=== PATIENT | female | born 1960 | race Caucasian/White ===

== ENCOUNTER → 2018-08-10 13:00 | Outpatient (CLI) | payer OTHER, SELFPAY | PROVIDERS: PCP Physician Assistant | DX: Z23 Encounter for immunization (principal) | CPT/HCPCS: 90471; 90686 ==

== ENCOUNTER → 2019-05-14 08:36 | Outpatient (CLI) | payer OTHER, SELFPAY ==
--- NOTE | 2019-05-14 | DI.MG.S_ITS ---
BILATERAL DIGITAL SCREENING MAMMOGRAM 3D/2D WITH CAD: 05/14/2019 CLINICAL: Routine screening. Comparison is made to exams dated: 05/27/2017 mammogram, 10/19/2015 mammogram, and 05/04/2013 mammogram - [facility]. There are scattered fibroglandular elements in both breasts. Current study was also evaluated with a Computer Aided Detection (CAD) system. No significant masses, calcifications, or other findings are seen in either breast. There has been no significant interval change. IMPRESSION: NEGATIVE There is no mammographic evidence of malignancy. A 1 year screening mammogram is recommended. This exam was interpreted at Station ID: [id number]. NOTE: For mammograms, a report in lay terms will be sent to the patient. Approximately 15% of breast malignancies will not be visualized mammographically. In the management of a palpable breast mass, a negative mammogram must not discourage biopsy of a clinically suspicious lesion. Electronically Signed By: Sandra burns/baltazar:05/16/2019 11:29:16 letter sent: Normal Exam ACR BI-RADS Category 1: Negative [id number]
== END ==
PROVIDERS: PCP Physician Assistant; Visit Provider Physician Assistant
DX: Z12.31 Encounter for screening mammogram for malignant neoplasm of breast (principal)
CPT/HCPCS: 77063; 77067

== ENCOUNTER → 2019-06-07 08:11 | Outpatient (CLI) | payer OTHER, SELFPAY ==
[2019-06-07 09:00] LABS: Add Manual Diff / Slide Review NO; Basophils Absolute Auto 100 /uL (0-100); Eosinophils Absolute Auto 200 /uL (0-450); Eosinophils Percent Auto 4.2 % (2-4); Hematocrit 40.3 % (36-46); Hemoglobin 13.5 g/dL (12.0-16.0); Lymphocytes Absolute Auto 1400 /uL (1100-4500); Lymphocytes Percent Auto 27.2 % (25-40); Mean Corpuscular HGB Conc 33.4 % (30-36); Mean Corpuscular Hemoglobin 32.1 PG (26-34); Mean Corpuscular Volume 95.8 fL (80-100); Monocytes Absolute Auto 500 /uL (0-900); Monocytes Percent Auto 9.6 % (3-14); Neutrophils Absolute Auto 3000 /uL (1500-7000); Platelet Count 251 X10^3/uL (150-400); Red Cell Distribution Width 13.6 % (11.6-14.8); White Blood Cell Count 5.2 X10^3/uL (4.5-11.0)
[2019-06-07 09:19] LABS: Alanine Aminotransferase 13 IU/L (9-52); Albumin 4.2 g/dL (3.5-5.0); Albumin Globulin Ratio 1.4 (1.0-2.8); Alkaline Phosphatase 71 U/L (38-126); Aspartate Aminotransferase 23 IU/L (14-36); Bilirubin Total 0.6 mg/dL (0.2-1.3); Blood Urea Nitrogen 15 mg/dL (7-17); Calcium 8.9 mg/dL (8.4-10.2); Carbon Dioxide 26 mmol/L (22-32); Chloride 107 mmol/L (98-107); Estimated Glomerular Filt Rate > 60.0 mL/min (>60); Globulin 3.1 g/dL (1.7-4.1); Glucose 98 mg/dL (70-100); HEMOLYSIS < 15 (0-50); Potassium 4.4 mmol/L (3.4-5.1); Sodium 142 mmol/L (137-145); Total Protein 7.3 g/dL (6.3-8.2)
[2019-06-07 10:12] LABS: Thyroid Stimulating Hormone 2.29 uIU/mL (0.47-4.68)
== END ==
PROVIDERS: PCP Physician Assistant; Visit Provider Physician Assistant
DX: E06.9 Thyroiditis, unspecified (principal); I10 Essential (primary) hypertension
CPT/HCPCS: 36415; 80053; 84443; 85025

== ENCOUNTER → 2020-10-02 10:32 | Outpatient (CLI) | payer OTHER, SELFPAY ==
[2020-10-02 11:36] LABS: COVID19 -Nasal RAPID Negative (Negative)
== END ==
PROVIDERS: PCP Nurse Practitioner; Visit Provider Nurse Practitioner
DX: Z03.818 Encounter for observation for suspected exposure to other biological agents ruled out (principal); Z11.59 Encounter for screening for other viral diseases
CPT/HCPCS: 87635

== ENCOUNTER → 2020-10-08 11:07 | Outpatient (CLI) | payer OTHER, SELFPAY ==
[2020-10-08 13:36] LABS: COVID19 -Nasal RAPID Negative (Negative)
== END ==
PROVIDERS: PCP Nurse Practitioner; Visit Provider Physician Assistant
DX: Z11.59 Encounter for screening for other viral diseases (principal)
CPT/HCPCS: 87635

== ENCOUNTER 2020-10-22 15:40 | Emergency (ER) | payer OTHER, MEDICAID, SELFPAY ==
[2020-10-22 15:47] VITALS: BP 129/81; PULSE 91; RESP 22; TEMP 37.2; O2SAT 96
--- NOTE | 2020-10-22 15:49 | DI.RAD.S_ITS ---
PROCEDURE: XR CHEST 1V INDICATIONS: chest pain TECHNIQUE: One view of the chest was acquired. COMPARISON: None. FINDINGS: Surgical changes and devices: None. Lungs and pleura: Mild linear atelectasis or scarring is seen at the right lung base. No acute airspace opacity is seen. No pleural effusions or pneumothorax. Mediastinum: Mediastinal contours appear normal. Heart size is normal. Bones and chest wall: No suspicious bony lesions. Overlying soft tissues appear unremarkable. IMPRESSION: No acute cardiopulmonary abnormality. Dictated by: Barrie Marcus M.D. on 10/22/2020 at 15:26 Approved by: Barrie Marcus M.D. on 10/22/2020 at 15:37
[2020-10-22 16:22] LABS: Add Manual Diff / Slide Review NO; Basophils Absolute Auto 0 /uL (0-100); Basophils Percent Auto 0.4 % (0-2); Eosinophils Absolute Auto 200 /uL (0-450); Eosinophils Percent Auto 4.3 % (2-4); Hematocrit 40.4 % (36-46); Hemoglobin 13.4 g/dL (12.0-16.0); Lymphocytes Absolute Auto 1600 /uL (1100-4500); Lymphocytes Percent Auto 31.6 % (25-40); Mean Corpuscular HGB Conc 33.2 % (30-36); Mean Corpuscular Hemoglobin 31.1 PG (26-34); Mean Corpuscular Volume 93.6 fL (80-100); Monocytes Absolute Auto 200 /uL (0-900); Monocytes Percent Auto 3.8 % (3-14); Neutrophils Absolute Auto 3100 /uL (1500-7000); Neutrophils Percent Auto 59.9 % (50-75); Platelet Count 286 X10^3/uL (150-400); Red Blood Cell Count 4.32 X10^6/uL (4.0-5.2); Red Cell Distribution Width 13.2 % (11.6-14.8); White Blood Cell Count 5.1 X10^3/uL (4.5-11.0)
[2020-10-22 16:28] LABS: Prothrombin Time 11.6 SECONDS (10.1-12.7)
[2020-10-22 16:30] LABS: PTT Partial Thromboplastin Tim 30 SECONDS (26.4-36.2)
[2020-10-22 16:32] LABS: Alanine Aminotransferase 9 IU/L (<35); Albumin 3.8 g/dL (3.5-5.0); Albumin Globulin Ratio 1.2 (1.0-2.8); Alkaline Phosphatase 78 U/L (38-126); Aspartate Aminotransferase 25 IU/L (14-36); BUN Creatinine Ratio 19.3 (6-22); Bilirubin Total 0.4 mg/dL (0.2-1.3); Blood Urea Nitrogen 11 mg/dL (7-17); Calcium 8.7 mg/dL (8.4-10.2); Carbon Dioxide 28 mmol/L (22-32); Chloride 107 mmol/L (98-107); Creatine Kinase 58 U/L (30-135); Estimated Glomerular Filt Rate > 60.0 mL/min (>60); Globulin 3.3 g/dL (1.7-4.1); Glucose 100 mg/dL (70-100); HEMOLYSIS 18 (0-50); Lipase 71 U/L (23-300); Potassium 3.9 mmol/L (3.4-5.1); Sodium 137 mmol/L (137-145); Total Protein 7.1 g/dL (6.3-8.2)
[2020-10-22 16:44] LABS: Troponin I < 0.012 ng/mL (0.01-0.034)
[2020-10-22 18:09] LABS: NT-proBNP (BNP-Adult 18+) 31 pg/mL (<125)
[2020-10-22 18:10] LABS: D Dimer 1367 ng/mL (<230)
--- NOTE | 2020-10-22 18:17 | DI.CT.S_ITS ---
PROCEDURE: CT ANGIO CHEST PE PROTOCOL INDICATIONS: chest pain, + ddimer TECHNIQUE: After the administration of intravenous contrast, 2 mm thick sections acquired from the pulmonary apices to the posterior costophrenic angles. 3-dimensional maximum intensity projection (MIP) coronal and sagittal reformats were then acquired through the thorax. For radiation dose reduction, the following was used: automated exposure control, adjustment of mA and/or kV according to patient size. COMPARISON: None. FINDINGS: Image quality: Excellent. Pulmonary arteries: Pulmonary arteries are normal in size, and demonstrate no intraluminal filling defects to suggest central pulmonary embolism. Lungs and pleura: Scattered subsegmental atelectasis and/or scarring. No focal consolidation. 2 mm nodule seen in the right middle lobe and left upper lobe as depicted on the montage images are indeterminate. No pleural effusions or pneumothorax. Central and peripheral airways are patent. Mediastinum: Heart size is normal, without pericardial effusion. No mediastinal or hilar adenopathy. Thoracic aorta is normal in caliber and enhancement. Esophagus is normal in caliber, without hiatal hernia. Bones and chest wall: No suspicious bony lesions. Ribs and thoracic spine appear intact throughout. Thyroid gland unremarkable . No axillary or supraclavicular adenopathy. Abdomen: Visualized upper abdominal solid organs appear normal in the early arterial phase of enhancement. IMPRESSION: No evidence of pulmonary embolism. No aortic dissection identified. Nonspecific 2 mm pulmonary nodules as detailed above. A follow-up CT chest in 1 year could be performed to exclude early metastatic or malignant possibilities. Dictated by: Nikolay Salomon M.D. on 10/22/2020 at 18:48 Approved by: Nikolay Salomon M.D. on 10/22/2020 at 18:52
--- NOTE | 2020-10-22 18:38 | ED_ITS ---
HPI - Chest Pain <GLADYS Aguirre - Last Filed: 10/22/20 20:21> General Chief Complaint: Chest Pain Stated Complaint: Poss Heart Attack Time Seen by Provider: 10/22/20 16:43 Source: patient Mode of arrival: Ambulatory Limitations: no limitations History of Present Illness HPI narrative: The patient is a 60-year-old female nonsmoker with history of hypothyroid, hypertension and fibromyalgia who presents with a chief complaint of chest pain radiating to her back for the past 3 days. She starts since then she has fibromyalgia, she was not overly concerned about the pain, but then t tyshawn she had an episode nausea so she became worried. She states that the nausea was overwhelming feeling. She denies any personal history of blood clots. She denies any personal cardiac history. She states that she has asthma as a child, but has not acted up in a while, though now she feels slightly wheezy. No fevers. No vomiting or diarrhea. She denies any current lightheadedness or dizziness, but rates her pain 5/10. The patient states that her pain is worse depending on position, especially when she lays flat her back or when she moves her left arm around. Related Data Previous Rx's Medication Instructions Recorded [COMPOUND CREAM] #120 gm 12/29/16 duloxetine 60 mg capsule,delayed 60 mg PO DAILY #90 cap 10/28/19 release gabapentin 600 mg tablet 600 mg PO DAILY PRN #90 tab 10/28/19 levothyroxine 75 mcg tablet 75 mcg PO DAILY #90 tab 10/28/19 losartan 50 mg tablet 50 mg PO DAILY #90 tab 10/28/19 Allergies Allergy/AdvReac Type Severity Reaction Status Date / Time oats Allergy Unknown Unverified 03/03/18 12:58 tramadol AdvReac Mild FAST HEART Unverified 03/03/18 12:58 BEAT plants Allergy Unknown Uncoded 03/03/18 12:58 Review of Systems <GLADYS Aguirre - Last Filed: 10/22/20 20:21> Review of Systems Narrative: GENERAL: Denies chills, fatigue, malaise, fever, sweats. HEENT: Denies sinus pain, ear pain, sore throat, difficulty swallowing, dizziness. RESPIRATORY: See HPI CARDIOVASCULAR: See HPI GASTROINTESTINAL: Denies nausea, vomiting, abdominal pain, diarrhea, constipation, melena. : Denies dysuria, frequency, incontinence, hematuria, urinary retention. MUSCULOSKELETAL: denies weakness, joint pain, or bony pain SKIN: Denies rash, skin lesions, or other NEUROLOGIC: Denies weakness, headache, numbness, change in speech, confusion, seizures, incoordination. PSYCHIATRIC: No concerning psychosocial issues. 12 point review of systems is negative except for those stated above Patient History <GLADYS Aguirre - Last Filed: 10/22/20 20:21> Medical History (Updated 10/22/20 @ 20:04 by GLADYS Aguirre) Alcohol consumption of one to four drinks per week Benign familial tremor (~1989) Chronic back pain Depression with anxiety Fibromyalgia Foot pain Hyperlipidemia Hypertension (~1995) Hypothyroidism (~1999) Marijuana use Measles Mumps Postmenopausal Raynaud disease Trigeminal neuralgia Vision disorder Surgical History (Updated 11/08/19 @ 22:23 by Nela Hamilton) Anesthesia History of knee surgery (~2015) History of tonsillectomy (~1962) Family History (Updated 11/08/19 @ 22:25 by Nela Hamilton) Father Suicide Mother Diabetes mellitus Arthritis Lymphoma Exam <GLADYS Aguirre - Last Filed: 10/22/20 20:21> Narrative Exam Narrative: GENERAL: This is a well-nourished, well-developed patient, in no acute distress HEAD: Atraumatic. Normocephalic. No temporal or scalp tenderness. EYES: Pupils equal round and reactive. Extraocular motions intact. No scleral icterus. No injection or drainage. ENT: Nose without bleeding, purulent drainage or septal hematoma. Throat without erythema, tonsillar hypertrophy or exudate. Uvula midline. Airway patent. NECK: Trachea midline. No JVD or lymphadenopathy. Supple, nontender, no meningeal signs. CARDIOVASCULAR: Regular rate and rhythm RESPIRATORY: Clear to auscultation. Breath sounds equal bilaterally. No rales, or rhonchi. No cough. No increased respiratory effort. No accessory muscle u se. GASTROINTESTINAL: Abdomen soft, non-tender, nondistended. No hepato- splenomegaly, or palpable masses. No guarding. Active bowel sounds all 4 quadrants EXTREMITIES: No clubbing, cyanosis, or edema. No joint tenderness, effusion, or edema noted. BACK: Nontender without deformity or crepitance. No flank tenderness. NEURO: AOx3. Interactive SKIN: No rash or erythema on visible skin Initial Vital Signs Initial Vital Signs: Vital Signs Temperature 98.9 F 10/22/20 15:47 Pulse Rate 91 H 10/22/20 15:47 Respiratory Rate 22 10/22/20 15:47 Blood Pressure 129/81 10/22/20 15:47 Pulse Oximetry 96 10/22/20 15:47 <Karla Dhillon DO - Last Filed: 10/27/20 18:15> Initial Vital Signs Initial Vital Signs: Vital Signs Temperature 98.9 F 10/22/20 15:47 Pulse Rate 91 H 10/22/20 15:47 Respiratory Rate 22 10/22/20 15:47 Blood Pressure 129/81 10/22/20 15:47 Pulse Oximetry 96 10/22/20 15:47 Scores <GLADYS Aguirre - Last Filed: 10/22/20 20:21> GCS [place] coma scale eye opening: Spontaneous Tomas coma scale verbal response: Orientated Tomas coma scale motor response: Obey commands [place] coma scale total score: 15 HEART Score Heart Score history: Slightly Suspicious Heart Score EKG: Normal Heart Score Age: 45-64 years old Heart Score risk factors: 1-2 risk factors Heart Score troponin: < or = to normal limit Heart Score Total: 2 Course <GLADYS Aguirre - Last Filed: 10/22/20 20:21> Orders Ordered: Discontinued Medications Sodium Chloride (Normal Saline 0.9%) 1,000 mls @ 250 mls/hr IV CONT CED Last Admin: 10/22/20 18:50 Dose: 250 mls/hr Documented by: JANELL Ketorolac Tromethamine (Ketorolac 60 Mg/2 Ml Vial) 30 mg IV NOW ONE Stop: 10/22/20 18:57 Ondansetron HCl (Ondansetron 4 Mg/2 Ml Inj) 4 mg IV NOW ONE Stop: 10/22/20 18:18 Last Admin: 10/22/20 18:50 Dose: 4 mg Documented by: JANELL Reevaluation(s) Reevaluation #1: Patient noted to have positive D-dimer. Discussed this with patient. CT to rule out PE ordered. Discussed getting 2nd troponin as well. Patient states that pain has become positional and is worse when lying flat. Time: 16:15 Vital Signs Vital signs: Vital Signs - 8 hr 10/22/20 15:47 10/22/20 19:35 Temperature 98.9 F Pulse Rate 91 H 71 Respiratory Rate 22 32 H Blood Pressure 129/81 Pulse Oximetry 96 99 <Karla Dhillon DO - Last Filed: 10/27/20 18:15> Orders Ordered: Discontinued Medications Sodium Chloride (Normal Saline 0.9%) 1,000 mls @ 250 mls/hr IV CONT CED Last Admin: 10/22/20 18:50 Dose: 250 mls/hr Documented by: JANELL Ketorolac Tromethamine (Ketorolac 60 Mg/2 Ml Vial) 30 mg IV NOW ONE Stop: 10/22/20 18:57 Ondansetron HCl (Ondansetron 4 Mg/2 Ml Inj) 4 mg IV NOW ONE Stop: 10/22/20 18:18 Last Admin: 10/22/20 18:50 Dose: 4 mg Documented by: JANELL Vital Signs Vital signs: Vital Signs - 8 hr 10/22/20 15:47 10/22/20 19:35 Temperature 98.9 F Pulse Rate 91 H 71 Respiratory Rate 22 32 H Blood Pressure 129/81 Pulse Oximetry 96 99 MDM - Chest Pain <GLADYS Aguirre - Last Filed: 10/22/20 20:21> Lab Data Attestation: I reviewed the patient's lab results. Result diagrams: 10/22/20 16:12 10/22/20 16:12 Labs: Lab Results 10/22/20 10/22/20 10/22/20 Range/Units 16:12 16:12 16:12 WBC 5.1 (4.5-11.0) X10^3/uL RBC 4.32 (4.0-5.2) X10^6/uL Hgb 13.4 (12.0-16.0) g/dL Hct 40.4 (36-46) % MCV 93.6 (80-100) fL MCH 31.1 (26-34) PG MCHC 33.2 (30-36) % RDW 13.2 (11.6-14.8) % Plt Count 286 (150-400) X10^3/uL Neut % (Auto) 59.9 (50-75) % Lymph % (Auto) 31.6 (25-40) % [place] % (Auto) 3.8 (3-14) % Eos % (Auto) 4.3 H (2-4) % Baso % (Auto) 0.4 (0-2) % Neut # (Auto) 3100 (8247-9557) /uL Lymph # (Auto) 1600 (7727-6947) /uL [place] # (Auto) 200 (0-900) /uL Eos # (Auto) 200 (0-450) /uL Baso # (Auto) 0 (0-100) /uL PT 11.6 (10.1-12.7) SECONDS INR 1.0 (0.9-1.3) APTT 30 (26.4-36.2) SECONDS D-Dimer (<230) ng/mL Sodium 137 (137-145) mmol/L Potassium 3.9 (3.4-5.1) mmol/L Chloride 107 (98-107) mmol/L Carbon Dioxide 28 (22-32) mmol/L BUN 11 (7-17) mg/dL Creatinine 0.57 (0.52-1.04) mg/dL Estimated GFR > 60.0 (>60) mL/min BUN/Creatinine Ratio 19.3 (6-22) Glucose 100 (70-100) mg/dL Calcium 8.7 (8.4-10.2) mg/dL Total Bilirubin 0.4 (0.2-1.3) mg/dL AST 25 (14-36) IU/L ALT 9 (<35) IU/L Alkaline Phosphatase 78 (38-126) U/L Total Creatine Kinase 58 (30-135) U/L CK-MB (CK-2) TNP CK-MB (CK-2) Rel Index TNP Troponin I < 0.012 (0.01-0.034) ng/mL NT-Pro-B Natriuret Pep (<125) pg/mL Total Protein 7.1 (6.3-8.2) g/dL Albumin 3.8 (3.5-5.0) g/dL Globulin 3.3 (1.7-4.1) g/dL Albumin/Globulin Ratio 1.2 (1.0-2.8) Lipase 71 (23-300) U/L COVID-19 PCR (Negative) 10/22/20 10/22/20 10/22/20 Range/Units 16:12 16:12 17:55 WBC (4.5-11.0) X10^3/uL RBC (4.0-5.2) X10^6/uL Hgb (12.0-16.0) g/dL Hct (36-46) % MCV (80-100) fL MCH (26-34) PG MCHC (30-36) % RDW (11.6-14.8) % Plt Count (150-400) X10^3/uL Neut % (Auto) (50-75) % Lymph % (Auto) (25-40) % [place] % (Auto) (3-14) % Eos % (Auto) (2-4) % Baso % (Auto) (0-2) % Neut # (Auto) (5709-2561) /uL Lymph # (Auto) (9107-5531) /uL [place] # (Auto) (0-900) /uL Eos # (Auto) (0-450) /uL Baso # (Auto) (0-100) /uL PT (10.1-12.7) SECONDS INR (0.9-1.3) APTT (26.4-36.2) SECONDS D-Dimer 1367 H (<230) ng/mL Sodium (137-145) mmol/L Potassium (3.4-5.1) mmol/L Chloride (98-107) mmol/L Carbon Dioxide (22-32) mmol/L BUN (7-17) mg/dL Creatinine (0.52-1.04) mg/dL Estimated GFR (>60) mL/min BUN/Creatinine Ratio (6-22) Glucose (70-100) mg/dL Calcium (8.4-10.2) mg/dL Total Bilirubin (0.2-1.3) mg/dL AST (14-36) IU/L ALT (<35) IU/L Alkaline Phosphatase (38-126) U/L Total Creatine Kinase (30-135) U/L CK-MB (CK-2) CK-MB (CK-2) Rel Index Troponin I (0.01-0.034) ng/mL NT-Pro-B Natriuret Pep 31 (<125) pg/mL Total Protein (6.3-8.2) g/dL Albumin (3.5-5.0) g/dL Globulin (1.7-4.1) g/dL Albumin/Globulin Ratio (1.0-2.8) Lipase (23-300) U/L COVID-19 PCR Negative (Negative) 10/22/20 Range/Units 18:59 WBC (4.5-11.0) X10^3/uL RBC (4.0-5.2) X10^6/uL Hgb (12.0-16.0) g/dL Hct (36-46) % MCV (80-100) fL MCH (26-34) PG MCHC (30-36) % RDW (11.6-14.8) % Plt Count (150-400) X10^3/uL Neut % (Auto) (50-75) % Lymph % (Auto) (25-40) % [place] % (Auto) (3-14) % Eos % (Auto) (2-4) % Baso % (Auto) (0-2) % Neut # (Auto) (8777-4374) /uL Lymph # (Auto) (6796-5252) /uL [place] # (Auto) (0-900) /uL Eos # (Auto) (0-450) /uL Baso # (Auto) (0-100) /uL PT (10.1-12.7) SECONDS INR (0.9-1.3) APTT (26.4-36.2) SECONDS D-Dimer (<230) ng/mL Sodium (137-145) mmol/L Potassium (3.4-5.1) mmol/L Chloride (98-107) mmol/L Carbon Dioxide (22-32) mmol/L BUN (7-17) mg/dL Creatinine (0.52-1.04) mg/dL Estimated GFR (>60) mL/min BUN/Creatinine Ratio (6-22) Glucose (70-100) mg/dL Calcium (8.4-10.2) mg/dL Total Bilirubin (0.2-1.3) mg/dL AST (14-36) IU/L ALT (<35) IU/L Alkaline Phosphatase (38-126) U/L Total Creatine Kinase 52 (30-135) U/L CK-MB (CK-2) TNP CK-MB (CK-2) Rel Index TNP Troponin I < 0.012 (0.01-0.034) ng/mL NT-Pro-B Natriuret Pep (<125) pg/mL Total Protein (6.3-8.2) g/dL Albumin (3.5-5.0) g/dL Globulin (1.7-4.1) g/dL Albumin/Globulin Ratio (1.0-2.8) Lipase (23-300) U/L COVID-19 PCR (Negative) Imaging Data Chest x-ray: Radiologist's Impression: [address] [place] [id number] ReportSigned Patient: Monika Painter SERAR#: [id number]: 1960cct:[id number]/Sex: 60 / FDate of Service: 10/22/20Loc: EDAccession Number: [id number] Procedure: XR chest 1V Ordering Provider: Karla Dhillon D.O. PROCEDURE: XR CHEST 1V INDICATIONS: chest pain TECHNIQUE: One view of the chest was acquired. COMPARISON: None. FINDINGS: Surgical changes and devices: None. Lungs and pleura: Mild linear atelectasis or scarring is seen at the right lung base. No acute airspace opacity is seen. No pleural effusions or pneumothorax. Mediastinum: Mediastinal contours appear normal. Heart size is normal. Bones and chest wall: No suspicious bony lesions. Overlying soft tissues appear unremarkable. IMPRESSION: No acute cardiopulmonary abnormality. Dictated by: Barrie Marcus M.D. on 10/22/2020 at 15:26 Approved by: Barrie Marcus M.D. on 10/22/2020 at 15:37 CT scan - chest: Radiologist's Impression: [address] [place] [address] [id number] Scan ReportSigned Patient: Monika Painter SERAR#: [id number]: 1Acct:[id number]/Sex: 60 / FDate of Service: 10/22/20Loc: EDAccession Number: [id number] Procedure: CT angio chest PE protocol Ordering Provider: Tahira Sutherland PROCEDURE: CT ANGIO CHEST PE PROTOCOL INDICATIONS: chest pain, + ddimer TECHNIQUE: After the administration of intravenous contrast, 2 mm thick sections acquired from the pulmonary apices to the posterior costophrenic angles. 3-dimensional maximum in tensity projection (MIP) coronal and sagittal reformats were then acquired through the thorax. For radiation dose reduction, the following was used: automated exposure control, adjustment of mA and/or kV according to patient size. COMPARISON: None. FINDINGS: Image quality: Excellent. Pulmonary arteries: Pulmonary arteries are normal in size, and demonstrate no intraluminal filling defects to suggest central pulmonary embolism. Lungs and pleura: Scattered subsegmental atelectasis and/or scarring. No focal consolidation. 2 mm nodule seen in the right middle lobe and left upper lobe as depicted on the montage images are indeterminate. No pleural effusions or pneumothorax. Central and peripheral airways are patent. Mediastinum: Heart size is normal, without pericardial effusion. No mediastinal or hilar adenopathy. Thoracic aorta is normal in caliber and enhancement. Esophagus is normal in caliber, without hiatal hernia. Bones and chest wall: No suspicious bony lesions. Ribs and thoracic spine appear intact throughout. Thyroid gland unremarkable . No axillary or supraclavicular adenopathy. Abdomen: Visualized upper abdominal solid organs appear normal in the early arterial phase of enhancement. IMPRESSION: No evidence of pulmonary embolism. No aortic dissection identified. Nonspecific 2 mm pulmonary nodules as detailed above. A follow-up CT chest in 1 year could be performed to exclude early metastatic or malignant possibilities. Dictated by: Nikolay Salomon M.D. on 10/22/2020 at 18:48 Approved by: Nikolay Salomon M.D. on 10/22/2020 at 18:52 ECG Data Attestation: I personally reviewed and interpreted this ECG as follows: Interpretation: Sinus rhythm. Ventricular rate 80. P.r. interval 150. QRS 70. viewed by Dr Dhillon [facility] Narrative Medical decision making narrative: The patient is a 60-year-old female who presents with a chief complaint of chest pain and back pain. Her initial EKG no acute findings. Her initial troponin is negative as is her repeat troponin. Given that her D-dimer was positive, obtain to CT to rule out pulmonary embolism. This came back negative. The fact that the patient's pain is worse with movement of her arm in position correlates with musculoskeletal pain. She was given Toradol in the emergency department, the declines any further measures as she has to drive home. Given that she does have cardiac risk factors including obesity, hypertension, discussed the possibility of admission for further cardiac rule out. However the patient adamantly declines to be admitted to the hospital today and rather follow up with primary care provider. I am okay with this given her presenting picture and the likelihood of musculoskeletal pain. I offered to try prescription NSAIDs or muscle relaxers, but the patient declined and states that she would rather use Tylenol Motrin etcetera. I did discussed at length that ruling out acute etiology today does not rule out the future she should come back to the emergency department for any acute concerns including chest pain, shortness of breath, concern of heart ponce ck or stroke. Patient has no questions or concerns upon discharge and states understanding return precautions as well as follow-up care. <Karla Dhillon, DO - Last Filed: 10/27/20 18:15> Lab Data Labs: Lab Results 10/22/20 10/22/20 10/22/20 Range/Units 16:12 16:12 16:12 WBC 5.1 (4.5-11.0) X10^3/uL RBC 4.32 (4.0-5.2) X10^6/uL Hgb 13.4 (12.0-16.0) g/dL Hct 40.4 (36-46) % MCV 93.6 (80-100) fL MCH 31.1 (26-34) PG MCHC 33.2 (30-36) % RDW 13.2 (11.6-14.8) % Plt Count 286 (150-400) X10^3/uL Neut % (Auto) 59.9 (50-75) % Lymph % (Auto) 31.6 (25-40) % [place] % (Auto) 3.8 (3-14) % Eos % (Auto) 4.3 H (2-4) % Baso % (Auto) 0.4 (0-2) % Neut # (Auto) 3100 (5557-7162) /uL Lymph # (Auto) 1600 (5778-8769) /uL [place] # (Auto) 200 (0-900) /uL Eos # (Auto) 200 (0-450) /uL Baso # (Auto) 0 (0-100) /uL PT 11.6 (10.1-12.7) SECONDS INR 1.0 (0.9-1.3) APTT 30 (26.4-36.2) SECONDS D-Dimer (<230) ng/mL Sodium 137 (137-145) mmol/L Potassium 3.9 (3.4-5.1) mmol/L Chloride 107 (98-107) mmol/L Carbon Dioxide 28 (22-32) mmol/L BUN 11 (7-17) mg/dL Creatinine 0.57 (0.52-1.04) mg/dL Estimated GFR > 60.0 (>60) mL/min BUN/Creatinine Ratio 19.3 (6-22) Glucose 100 (70-100) mg/dL Calcium 8.7 (8.4-10.2) mg/dL Total Bilirubin 0.4 (0.2-1.3) mg/dL AST 25 (14-36) IU/L ALT 9 (<35) IU/L Alkaline Phosphatase 78 (38-126) U/L Total Creatine Kinase 58 (30-135) U/L CK-MB (CK-2) TNP CK-MB (CK-2) Rel Index TNP Troponin I < 0.012 (0.01-0.034) ng/mL NT-Pro-B Natriuret Pep (<125) pg/mL Total Protein 7.1 (6.3-8.2) g/dL Albumin 3.8 (3.5-5.0) g/dL Globulin 3.3 (1.7-4.1) g/dL Albumin/Globulin Ratio 1.2 (1.0-2.8) Lipase 71 (23-300) U/L COVID-19 PCR (Negative) 10/22/20 10/22/20 10/22/20 Range/Units 16:12 16:12 17:55 WBC (4.5-11.0) X10^3/uL RBC (4.0-5.2) X10^6/uL Hgb (12.0-16.0) g/dL Hct (36-46) % MCV (80-100) fL MCH (26-34) PG MCHC (30-36) % RDW (11.6-14.8) % Plt Count (150-400) X10^3/uL Neut % (Auto) (50-75) % Lymph % (Auto) (25-40) % [place] % (Auto) (3-14) % Eos % (Auto) (2-4) % Baso % (Auto) (0-2) % Neut # (Auto) (3319-3358) /uL Lymph # (Auto) (4874-8820) /uL [place] # (Auto) (0-900) /uL Eos # (Auto) (0-450) /uL Baso # (Auto) (0-100) /uL PT (10.1-12.7) SECONDS INR (0.9-1.3) APTT (26.4-36.2) SECONDS D-Dimer 1367 H (<230) ng/mL Sodium (137-145) mmol/L Potassium (3.4-5.1) mmol/L Chloride (98-107) mmol/L Carbon Dioxide (22-32) mmol/L BUN (7-17) mg/dL Creatinine (0.52-1.04) mg/dL Estimated GFR (>60) mL/min BUN/Creatinine Ratio (6-22) Glucose (70-100) mg/dL Calcium (8.4-10.2) mg/dL Total Bilirubin (0.2-1.3) mg/dL AST (14-36) IU/L ALT (<35) IU/L Alkaline Phosphatase (38-126) U/L Total Creatine Kinase (30-135) U/L CK-MB (CK-2) CK-MB (CK-2) Rel Index Troponin I (0.01-0.034) ng/mL NT-Pro-B Natriuret Pep 31 (<125) pg/mL Total Protein (6.3-8.2) g/dL Albumin (3.5-5.0) g/dL Globulin (1.7-4.1) g/dL Albumin/Globulin Ratio (1.0-2.8) Lipase (23-300) U/L COVID-19 PCR Negative (Negative) 10/22/20 Range/Units 18:59 WBC (4.5-11.0) X10^3/uL RBC (4.0-5.2) X10^6/uL Hgb (12.0-16.0) g/dL Hct (36-46) % MCV (80-100) fL MCH (26-34) PG MCHC (30-36) % RDW (11.6-14.8) % Plt Count (150-400) X10^3/uL Neut % (Auto) (50-75) % Lymph % (Auto) (25-40) % [place] % (Auto) (3-14) % Eos % (Auto) (2-4) % Baso % (Auto) (0-2) % Neut # (Auto) (8374-2770) /uL Lymph # (Auto) (6975-1053) /uL [place] # (Auto) (0-900) /uL Eos # (Auto) (0-450) /uL Baso # (Auto) (0-100) /uL PT (10.1-12.7) SECONDS INR (0.9-1.3) APTT (26.4-36.2) SECONDS D-Dimer (<230) ng/mL Sodium (137-145) mmol/L Potassium (3.4-5.1) mmol/L Chloride (98-107) mmol/L Carbon Dioxide (22-32) mmol/L BUN (7-17) mg/dL Creatinine (0.52-1.04) mg/dL Estimated GFR (>60) mL/min BUN/Creatinine Ratio (6-22) Glucose (70-100) mg/dL Calcium (8.4-10.2) mg/dL Total Bilirubin (0.2-1.3) mg/dL AST (14-36) IU/L ALT (<35) IU/L Alkaline Phosphatase (38-126) U/L Total Creatine Kinase 52 (30-135) U/L CK-MB (CK-2) TNP CK-MB (CK-2) Rel Index TNP Troponin I < 0.012 (0.01-0.034) ng/mL NT-Pro-B Natriuret Pep (<125) pg/mL Total Protein (6.3-8.2) g/dL Albumin (3.5-5.0) g/dL Globulin (1.7-4.1) g/dL Albumin/Globulin Ratio (1.0-2.8) Lipase (23-300) U/L COVID-19 PCR (Negative) ECG Data Attestation: I personally reviewed and interpreted this ECG as follows: Prior ECG tracings: not available for review Interpretation: Normal sinus rhythm rate 79 p.r. interval 150 QRS [address] changes no priors to compare small T-wave inversion noted in lead 3 only no reciprocal changes Discharge Plan Departure Patient Disposition: Home Clinical Impression: Atypical chest pain Instructions: DI for Atypical Chest Pain Activity Restrictions/Additional Instructions: Thank you for trusting us with your care today. Today you had multiple normal sides of lab work, normal EKG, normal chest CT. Please follow-up with primary care provider tomorrow. As discussed, we ruled out any acute heart attack or acute etiology, this does not rule out anything in the future. The fact that your pain is worse with position moving her arm this supportive of musculoskeletal pain. Please use [id number] medications as needed and able. Please come back to the emergency department for any acute concerns such as chest pain, shortness of breath concern of heart attack or stroke. Prescriptions: No Action [COMPOUND CREAM] Qty: 120 RF: 4 duloxetine 60 mg capsule,delayed release(DR/EC) 60 mg PO DAILY Qty: 90 RF: 3 gabapentin 600 mg tablet 600 mg PO DAILY PRN (Reason: pain, moderate) Qty: 90 RF: 3 levothyroxine 75 mcg tablet 75 mcg PO DAILY Qty: 90 RF: 3 losartan 50 mg tablet 50 mg PO DAILY Qty: 90 RF: 3 Referrals: Neha Park ARNP [Primary Care Provider] - <Karla Dhillon DO - Last Filed: 10/27/20 18:15> Cosign ED Attending Jono Attestation: I was immediately available in the department for consultation. Documentation has been reviewed. I agree with assessment and plan.
[2020-10-22] MEDS: SODIUM CHLORIDE 0.9% 1,000 ML 250 ML IV (18:50)
[2020-10-22] MEDS: ONDANSETRON 4 MG/2 ML INJ IV (18:50)
[2020-10-22 19:04] LABS: COVID19 -Nasal RAPID Negative (Negative)
[2020-10-22 19:20] LABS: Creatine Kinase 52 U/L (30-135)
[2020-10-22 19:32] LABS: Troponin I < 0.012 ng/mL (0.01-0.034)
[2020-10-22 19:35] VITALS: PULSE 71; RESP 32; O2SAT 99
--- NOTE | 2020-11-13 14:48 | PC.NURSE ---
Late entry: NS 250 mL/hr discontinued at 2004 hrs.
== END 2020-10-22 20:11 | disposition home or self-care (01) ==
PROVIDERS: Emergency Medicine; Emergency Provider Nurse Practitioner Family; PCP Nurse Practitioner
DX: R07.89 Other chest pain (principal); R79.89 Other specified abnormal findings of blood chemistry; E03.9 Hypothyroidism, unspecified; I10 Essential (primary) hypertension; M79.7 Fibromyalgia; R11.0 Nausea
CPT/HCPCS: 36415; 71045; 71275; 80053; 82550; 83690; 83880; 84484; 85025; 85379; 85610; 85730; 87635; 93005; 93010; 96361; 96374; 99281; 99284; J2405

== ENCOUNTER → 2020-11-05 07:23 | Outpatient (CLI) | payer OTHER, SELFPAY ==
[2020-11-05 08:17] LABS: Cholesterol 162 mg/dL (140-199); HDL Cholesterol 43 mg/dL (40-60); LDL Cholesterol Calculated 95 mg/dL (<100); Triglycerides 120 mg/dL (35-150)
[2020-11-05 08:50] LABS: Thyroid Stimulating Hormone 5.11 uIU/mL (0.47-4.68)
[2020-11-06 08:52] LABS: Microalbumin Urine Random < 0.6 mg/dL (0-1.6)
== END ==
PROVIDERS: PCP Nurse Practitioner; Referring Provider Nurse Practitioner; Visit Provider Nurse Practitioner
DX: E03.9 Hypothyroidism, unspecified (principal); E78.5 Hyperlipidemia, unspecified; F41.8 Other specified anxiety disorders; I10 Essential (primary) hypertension; Z79.899 Other long term (current) drug therapy
CPT/HCPCS: 36415; 80061; 82043; 82570; 84443

== ENCOUNTER → 2021-01-08 10:48 | Outpatient (CLI) | payer OTHER, MEDICAID, SELFPAY ==
[2021-01-08 11:38] LABS: Add Manual Diff / Slide Review NO; Basophils Absolute Auto 0 /uL (0-100); Basophils Percent Auto 0.3 % (0-2); Eosinophils Absolute Auto 200 /uL (0-450); Hematocrit 38.4 % (36-46); Hemoglobin 13.1 g/dL (12.0-16.0); Lymphocytes Absolute Auto 1500 /uL (1100-4500); Lymphocytes Percent Auto 27.6 % (25-40); Mean Corpuscular HGB Conc 34.2 % (30-36); Mean Corpuscular Hemoglobin 31.7 PG (26-34); Mean Corpuscular Volume 92.6 fL (80-100); Monocytes Absolute Auto 200 /uL (0-900); Monocytes Percent Auto 4.5 % (3-14); Neutrophils Absolute Auto 3500 /uL (1500-7000); Neutrophils Percent Auto 63.6 % (50-75); Platelet Count 267 X10^3/uL (150-400); Red Blood Cell Count 4.15 X10^6/uL (4.0-5.2); Red Cell Distribution Width 13.2 % (11.6-14.8); White Blood Cell Count 5.5 X10^3/uL (4.5-11.0)
[2021-01-08 12:07] LABS: Erythrocyte Sedimentation Rate 18 MM/HR (0-20)
[2021-01-08 12:26] LABS: Alanine Aminotransferase 9 IU/L (<35); Albumin 3.9 g/dL (3.5-5.0); Albumin Globulin Ratio 1.3 (1.0-2.8); Alkaline Phosphatase 90 U/L (38-126); Aspartate Aminotransferase 30 IU/L (14-36); BUN Creatinine Ratio 22.4 (6-22); Bilirubin Total 0.3 mg/dL (0.2-1.3); Blood Urea Nitrogen 13 mg/dL (7-17); C-Reactive Protein Quant 0.7 mg/dL (<1.0); Calcium 8.6 mg/dL (8.4-10.2); Carbon Dioxide 28 mmol/L (22-32); Chloride 106 mmol/L (98-107); Estimated Glomerular Filt Rate > 60.0 mL/min (>60); Globulin 3.1 g/dL (1.7-4.1); Glucose 107 mg/dL (70-100); HEMOLYSIS < 15 (0-50); Potassium 4.2 mmol/L (3.4-5.1); Sodium 137 mmol/L (137-145)
[2021-01-08 12:42] LABS: Rheumatoid Factor 145.6 IU/mL (<12.0)
[2021-01-08 13:12] LABS: Vitamin B12 784 pg/mL (239-931)
[2021-01-08 14:25] LABS: Thyroid Stimulating Hormone 1.98 uIU/mL (0.47-4.68)
[2021-01-09 18:04] LABS: ANA Screen, IFA Negative (.)
== END ==
PROVIDERS: PCP Nurse Practitioner; Referring Provider Nurse Practitioner; Visit Provider Nurse Practitioner
DX: F41.8 Other specified anxiety disorders (principal); I10 Essential (primary) hypertension; I73.00 Raynaud's syndrome without gangrene; M06.9 Rheumatoid arthritis, unspecified; M79.7 Fibromyalgia; R26.89 Other abnormalities of gait and mobility; R29.898 Other symptoms and signs involving the musculoskeletal system; R53.1 Weakness; W19.XXXA Unspecified fall, initial encounter; Z01.812 Encounter for preprocedural laboratory examination; E03.9 Hypothyroidism, unspecified; Z79.899 Other long term (current) drug therapy
CPT/HCPCS: 36415; 80053; 82607; 84443; 85025; 85651; 86038; 86140; 86430

== ENCOUNTER → 2021-01-15 09:13 | Outpatient (CLI) | payer OTHER, SELFPAY ==
--- NOTE | 2021-01-15 09:14 | DI.MRI.S_ITS ---
PROCEDURE: MR HEAD/BRAIN WO/W CON INDICATIONS: Weakness of lower extremities, imbalance, falls TECHNIQUE: Noncontrast axial T1 spin echo, axial T2 fast spin echo, sagittal and axial FLAIR, coronal T2 fast spin echo, axial gradient echo, axial diffusion and ADC through the brain. After the administration of contrast, axial and coronal 3D VIBE or T1 spin echo with fat saturation through the brain. COMPARISON: None. FINDINGS: Image quality: Excellent. CSF Spaces: Basal cisterns are patent. No extra-axial fluid collections. Ventricles are normal in size and shape. Brain: No midline shift. No intracranial bleeds or masses. No abnormal intracranial enhancement. The brainstem appears normal. Diffusion-weighted images demonstrate no acute ischemic insults. No chronic ischemic insults. Normal intravascular flow voids are present. Skull and face: Calvarial marrow is normal in signal. Orbits appear normal. Sinuses: Sinuses and mastoids appear clear. IMPRESSION: Normal for age, source of current symptoms is not seen. There is a mild degree of microvascular atherosclerotic change in the deep white matter of each hemisphere but no sign of stroke, hemorrhage, mass or ventriculomegaly. Dictated by: Isidro Haley M.D. on 01/15/2021 at 11:10 Approved by: Isidro Haley M.D. on 01/15/2021 at 11:11
== END ==
PROVIDERS: PCP Nurse Practitioner; Referring Provider Nurse Practitioner; Visit Provider Nurse Practitioner
DX: R29.898 Other symptoms and signs involving the musculoskeletal system (principal); R26.89 Other abnormalities of gait and mobility; R29.6 Repeated falls
CPT/HCPCS: 70553

== ENCOUNTER → 2021-01-25 15:21 | Outpatient (CLI) | payer OTHER, MEDICAID, SELFPAY ==
--- NOTE | 2021-01-25 15:22 | DI.RAD.S_ITS ---
PROCEDURE: XR KNEE LT 3V INDICATIONS: progression reumatoid arthritis TECHNIQUE: 3 views of the knee were acquired. COMPARISON: None. FINDINGS: Bones: No fractures or dislocations. No suspicious bony lesions. Soft tissues: No joint effusion. No suspicious soft tissue calcifications. IMPRESSION: No trauma found. Dictated by: Isidro Haley M.D. on 01/25/2021 at 15:58 Approved by: Isidro Haley M.D. on 01/25/2021 at 15:59
--- NOTE | 2021-01-25 15:22 | DI.RAD.S_ITS ---
PROCEDURE: XR HAND LT MIN 3V INDICATIONS: progression Reumatoid arthritis TECHNIQUE: 3 views of the hand(s) acquired. COMPARISON: None. FINDINGS: Bones: No fractures or dislocations. Carpal bones are normally aligned at the proximal row but the trapezium is absent. No suspicious bony lesions. Soft tissues: No suspicious soft tissue calcifications. 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 However, elsewhere no erosive changes are found. Dictated by: Isidro Haley M.D. on 01/25/2021 at 16:00 Approved by: Isidro Haley M.D. on 01/25/2021 at 16:02
--- NOTE | 2021-01-25 15:22 | DI.RAD.S_ITS ---
PROCEDURE: XR KNEE RT 3V INDICATIONS: progression Reumatoid arthritis TECHNIQUE: 3 views of the knee were acquired. COMPARISON: None. FINDINGS: Bones: No fractures or dislocations. No suspicious bony lesions. Moderate medial compartment knee joint space narrowing. Osteoarthritis is the presumed cause. Soft tissues: No joint effusion. No suspicious soft tissue calcifications. IMPRESSION: Moderate osteoarthritis right knee medial compartment. Dictated by: Isidro Haley M.D. on 01/25/2021 at 15:57 Approved by: Isidro Haley M.D. on 01/25/2021 at 15:58
--- NOTE | 2021-01-25 15:22 | DI.RAD.S_ITS ---
PROCEDURE: XR HAND RT MIN 3V INDICATIONS: progression reumatoid arthritis TECHNIQUE: 3 views of the hand(s) acquired. COMPARISON: None. FINDINGS: Bones: No fractures or dislocations. Carpal bones are normally aligned. No suspicious bony lesions. Soft tissues: No suspicious soft tissue calcifications. IMPRESSION: No trauma found. Dictated by: Isidro Haley M.D. on 01/25/2021 at 15:59 Approved by: Isidro Haley M.D. on 01/25/2021 at 16:00
== END ==
PROVIDERS: PCP Nurse Practitioner; Referring Provider Nurse Practitioner; Visit Provider Nurse Practitioner
DX: M06.9 Rheumatoid arthritis, unspecified (principal); M25.561 Pain in right knee; M25.562 Pain in left knee; M79.641 Pain in right hand; M79.642 Pain in left hand; M17.11 Unilateral primary osteoarthritis, right knee
CPT/HCPCS: 73130; 73562

== ENCOUNTER → 2021-04-19 10:31 | Outpatient (CLI) | payer OTHER, MEDICAID, SELFPAY ==
--- NOTE | 2021-04-19 | DI.MG.S_ITS ---
BILATERAL DIGITAL SCREENING MAMMOGRAM 3D/2D WITH CAD: 04/19/2021 CLINICAL: Routine screening. Comparison is made to exams dated: 05/14/2019 mammogram, 05/27/2017 mammogram, 10/19/2015 mammogram, 05/04/2013 mammogram, and 12/19/2011 mammogram - [facility]. The tissue of both breasts is predominantly fatty. Current study was also evaluated with a Computer Aided Detection (CAD) system. No significant masses, calcifications, or other findings are seen in either breast. There has been no significant interval change. IMPRESSION: NEGATIVE There is no mammographic evidence of malignancy. A 1 year screening mammogram is recommended. This exam was interpreted at Station ID: [id number]. NOTE: For mammograms, a report in lay terms will be sent to the patient. Approximately 15% of breast malignancies will not be visualized mammographically. In the management of a palpable breast mass, a negative mammogram must not discourage biopsy of a clinically suspicious lesion. Electronically Signed By: Raymundo [email or web address]:04/19/2021 14:18:35 letter sent: Normal Exam ACR BI-RADS Category 1: Negative [id number]
== END ==
PROVIDERS: PCP Nurse Practitioner; Referring Provider Nurse Practitioner; Visit Provider Nurse Practitioner
DX: Z12.31 Encounter for screening mammogram for malignant neoplasm of breast (principal)
CPT/HCPCS: 77063; 77067

== ENCOUNTER → 2021-04-29 12:07 | Outpatient (CLI) | payer OTHER, MEDICAID, SELFPAY ==
--- NOTE | 2021-04-29 12:08 | DI.RAD.S_ITS ---
PROCEDURE: XR CHEST 2V INDICATIONS: wheezing, hx asthma X30 DAYS TECHNIQUE: 2 views of the chest were acquired. COMPARISON: [facility], CR, XR CHEST 1V, 10/22/2020, 16:12. FINDINGS: Surgical changes and devices: None. Lungs and pleura: Lungs are clear. No pleural effusions or pneumothorax. Mediastinum: Mediastinal contours are normal. Heart size is normal. Bones and chest wall: No suspicious bony abnormalities. Soft tissues appear unremarkable. IMPRESSION: No acute cardiopulmonary abnormality. Dictated by: Toy Rajan M.D. on 04/29/2021 at 12:51 Approved by: Toy Rajan M.D. on 04/29/2021 at 12:51
== END ==
PROVIDERS: PCP Nurse Practitioner; Referring Provider Nurse Practitioner; Visit Provider Nurse Practitioner
DX: R06.2 Wheezing (principal)
CPT/HCPCS: 71046

== ENCOUNTER → 2021-05-08 12:47 | Outpatient (CLI) | payer OTHER, MEDICAID, SELFPAY ==
[2021-05-08 13:56] LABS: COVID19 -Nasal RAPID Negative (Negative)
== END ==
PROVIDERS: Family Provider Nurse Practitioner; PCP Nurse Practitioner; Referring Provider Internal Medicine; Visit Provider Internal Medicine
DX: Z20.822 Contact with and (suspected) exposure to COVID-19 (principal)
CPT/HCPCS: 87635; C9803

== ENCOUNTER → 2021-05-09 14:19 | Outpatient (CLI) | payer OTHER, MEDICAID, SELFPAY ==
--- NOTE | 2021-05-17 08:48 | PM.PFT.1 ---
Pulmonary Function Test Referral & Results Date Patient Seen: 05/09/21 Requesting provider: Neha Park Results: The spirometry demonstrates an FVC of 2.86 L which is 80% of predicted. The FEV1 was measured at 2.19 L which is 79% of predicted. The FEV1/FVC ratio was 77 which is 98% of predicted. Following the administration of bronchodilator there was a 10% improvement in FEV1 and a 47% improvement in FEF 25-75%. Lung volumes show an SVC of 3.07 L which is 93% of predicted. The diffusing capacity was measured at 27.55 which is 102% of predicted. The maximum voluntary ventilation was normal Interpretation: This study demonstrates perhaps very mild obstructive lung disease based on minimal reduction FEV1 although FEV1/FVC ratio is preserved. There is also minimal evidence of benefit following bronchodilator particularly small airway flow as above based on improvement in FEF 25-75%. Shape a flow volume loop is also consistent with very mild obstructive lung disease Otherwise this study is normal
== END ==
PROVIDERS: Family Provider Nurse Practitioner; PCP Nurse Practitioner; Referring Provider Nurse Practitioner; Visit Provider Nurse Practitioner
DX: R06.02 Shortness of breath (principal); J45.909 Unspecified asthma, uncomplicated
CPT/HCPCS: 94060; 94726; 94729

== ENCOUNTER → 2021-05-14 12:28 | Outpatient (CLI) | payer OTHER, MEDICAID, SELFPAY ==
[2021-05-14 13:51] LABS: Add Manual Diff / Slide Review NO; Basophils Absolute Auto 0 /uL (0-100); Basophils Percent Auto 0.5 % (0-2); Eosinophils Absolute Auto 200 /uL (0-450); Eosinophils Percent Auto 3.2 % (2-4); Hematocrit 40.5 % (36-46); Hemoglobin 13.2 g/dL (12.0-16.0); Lymphocytes Absolute Auto 1900 /uL (1100-4500); Lymphocytes Percent Auto 28.2 % (25-40); Mean Corpuscular HGB Conc 32.7 % (30-36); Mean Corpuscular Hemoglobin 31.2 PG (26-34); Mean Corpuscular Volume 95.6 fL (80-100); Monocytes Absolute Auto 400 /uL (0-900); Monocytes Percent Auto 5.8 % (3-14); Neutrophils Absolute Auto 4200 /uL (1500-7000); Neutrophils Percent Auto 62.3 % (50-75); Platelet Count 306 X10^3/uL (150-400); Red Blood Cell Count 4.24 X10^6/uL (4.0-5.2); Red Cell Distribution Width 14.9 % (11.6-14.8); White Blood Cell Count 6.7 X10^3/uL (4.5-11.0)
[2021-05-14 15:23] LABS: Erythrocyte Sedimentation Rate 15 MM/HR (0-20)
[2021-05-14 15:46] LABS: Alanine Aminotransferase 9 IU/L (<35); Albumin 4.1 g/dL (3.5-5.0); Albumin Globulin Ratio 1.4 (1.0-2.8); Alkaline Phosphatase 70 U/L (38-126); Aspartate Aminotransferase 26 IU/L (14-36); BUN Creatinine Ratio 19.7 (6-22); Bilirubin Total 0.5 mg/dL (0.2-1.3); Blood Urea Nitrogen 13 mg/dL (7-17); Calcium 9.5 mg/dL (8.4-10.2); Carbon Dioxide 28 mmol/L (22-32); Chloride 104 mmol/L (98-107); Estimated Glomerular Filt Rate > 60.0 mL/min (>60); Globulin 2.9 g/dL (1.7-4.1); Glucose 99 mg/dL (70-100); HEMOLYSIS < 15 (0-50); Potassium 4.8 mmol/L (3.4-5.1); Sodium 140 mmol/L (137-145)
[2021-05-14 15:49] LABS: High Sensitivity CRP - Cardiac 8.4 mg/L (1.0-3.0)
== END ==
PROVIDERS: Family Provider Nurse Practitioner; PCP Nurse Practitioner; Referring Provider Internal Medicine Rheumatology; Visit Provider Internal Medicine Rheumatology
DX: M05.79 Rheumatoid arthritis with rheumatoid factor of multiple sites without organ or systems involvement (principal)
CPT/HCPCS: 36415; 80053; 85025; 85651; 86140

== ENCOUNTER → 2021-05-28 16:14 | Outpatient (CLI) | payer OTHER, MEDICAID, SELFPAY ==
--- NOTE | 2021-05-28 16:15 | DI.US.S_ITS ---
PROCEDURE: US PERIPH VENOUS LOW EXTREM LT INDICATIONS: Left lower extremity swelling for 1 week. RULE OUT DVT TECHNIQUE: Real-time imaging, as well as color and pulse Doppler interrogation, were performed of the lower extremity deep veins from the inguinal ligament to the popliteal fossa. COMPARISON: None. FINDINGS: The common femoral, femoral and popliteal veins are normally compressible, and free of intraluminal thrombus. Color and pulse Doppler demonstrate normal phasic intraluminal flow. There is normal augmentation response to distal compression maneuver. 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 IMPRESSION: Negative for deep venous thrombosis. Prominent popliteal fossa fluid collection seen, which is likely related to Yusuf's cyst. Dictated by: Cheng Guerra M.D. on 05/28/2021 at 16:21 Approved by: Cheng Guerra M.D. on 05/28/2021 at 16:22
== END ==
PROVIDERS: Family Provider Nurse Practitioner; PCP Nurse Practitioner; Referring Provider Nurse Practitioner; Visit Provider Nurse Practitioner
DX: M79.89 Other specified soft tissue disorders (principal)
CPT/HCPCS: 93971

== ENCOUNTER 2021-06-18 14:30 | Outpatient (RCR) | payer OTHER, MEDICAID, SELFPAY ==
--- NOTE | 2021-05-30 16:43 | PT.OIE ---
Current Diagnoses Neuralgia and neuritis, unspecified (05/30/21) Other abnormalities of gait and mobility (05/30/21) Other general symptoms and signs (05/30/21) Past Medical History (Last Reviewed 05/28/21 @ 16:05 by JAMAR Santana) Alcohol consumption of one to four drinks per week Benign familial tremor (~1989) Chronic back pain Depression with anxiety Fibromyalgia Foot pain History of knee surgery (~2015) History of tonsillectomy (~1962) Hyperlipidemia Hypertension (~1995) Hypothyroidism (~1999) Marijuana use Measles Mumps Obstructive lung disease Postmenopausal Raynaud disease Trigeminal neuralgia Vision disorder Past Surgical History (Last Reviewed 05/28/21 @ 16:05 by JAMAR Santana) Anesthesia History of knee surgery (~2015) History of tonsillectomy (~1962) Visit Care Team Role Provider Type JAMAR Santana Attending Provider Advanced Front Of House Manager Family Provider Primary Care Provider Referring Provider Specialty: [facility] Practice Address: [address] [place] [address], 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 LAYER Visits 0 Evaluation Information Evaluation Date 05/31/21 Precautions Precautions fibromyalgia rheumatoid arthritis PT-OP-B Current Condition Start: 05/31/21 09:56 Freq: Status: Active Protocol: Document 05/31/21 09:56 (Rec: 05/31/21 10:26 [email or web address]) Current Condition History of Current Condition Onset Date 6 months ago Current Complaints decreased balance, chronic pain, generalized weakness, LLE swelling History of Current Condition Monika is a 60yo female with RA, fibromyalgia, peripheral neuropathies, depression with anxiety, raynaud's syndrome, hyperipidemia, HTN, hypothyroidism here today for decreased balance, pain and weak LEs. She stated her balance suddenly has been declining since 6 months ago with 2 falls and often had to catch herself. She feels unstable with quick turns, or with eyes closed. She often stumbles by catching her foot on stairs as well. She has to couch surfing at home sometimes for support. Pt also has been experiencing constant numbness and burning down the lateral aspect of L thigh to Lateral calf. She recently has a new onset of swelling on LLE with no known cause (pt went to ER with negative DVT/blockage findings ). Besides, pt states her RA and fibromyalgia have significantly affected her life. She c/o fatigue daily and it's worsening who has to nap after caring for her mother for 4 hours per day. She cannot keep her own home clean due to fatigue. Pt also experiences night cramps on LEs and LE stiffness in the am or after being in one position for a long period of time. Prior Treatments and Tests pt had carpel tunnel surgery on B wrists d/t wrist pain and numbness. 05/28/21 for LLE swelling= negative DVT, rolf sign, blood clot. R knee x-ray= mod OA at medial compartment x-ray L hand =IMPRESSION: Absent trapezium, possibly postoperative change versus osteolysis previously. However, elsewhere no erosive changes are found. x-ray R hand= IMPRESSION: No trauma found. Future Testing and Treatments Planned pt is going to consult with neurologist Treatment Goals Patient/Caregiver Goals 1. to improve her overall balance and stamina for daily activities Personal Factors Other Personal Factors That May Effect RA, fibromyalgia, chronic pain Therapy/Recovery , peripheral neuropathies, depression with anxiety, raynaud's syndrome, hyperipidemia, HTN, hypothyroidism PT-OP-C Subjective Start: 05/31/21 09:56 Freq: Status: Active Protocol: Document 05/31/21 09:56 (Rec: 05/31/21 10:26 [email or web address]) Patient Questionnaires ABC- Activity Specific Balance Confidence Scale ABC Score 70.6 ABC Functional Impairment 20 to <40% Impaired (Score 61- 80) Dizziness Handicap Inventory DHI Score 56 DHI Functional Impairment 40 to 59% Impaired (Score 40- 59) OP-PT Pain Assessment Location L thigh Pain Location Details lateral thigh and calf Intensity 4 Scale Used Numeric (0 - 10) Description Burning,Radiating,Tingling Frequency Frequent hands Intensity 4 Scale Used Numeric (0 - 10) Description Aching,Radiating Frequency Constant PT-OP-D Balance Start: 05/31/21 09:56 Freq: Status: Active Protocol: Document 05/31/21 09:56 (Rec: 05/31/21 10:26 [email or web address]) Balance Tests Romberg Romberg WFL Single Limb Standing Single Limb- Right 28,25 Single Limb- Left 16,25 Tandem Tandem Standing with UE extended out for balance, bilateral >60 s Other Other Balance Tests Performed SLS with UE extended out for balance romberg with eyes closed= mild sagital plane weight shift. no LOB romberg with eyes open= WFL PT-OP-G Mobility & Gait Start: 05/31/21 09:56 Freq: Status: Active Protocol: Document 05/31/21 09:56 (Rec: 05/31/21 10:26 [email or web address]) OP Gait Assessment Comments Gait Comments pt presents with a heavier initial contact and loading response on RLE. PT-OP-H Neuro Start: 05/31/21 09:56 Freq: Status: Active Protocol: Document 05/31/21 09:56 (Rec: 05/31/21 10:26 [email or web address]) Sensation Evaluation Gross Sensation Gross Sensation Left LE Impaired Sensation Description Numbness,Tingling Dermatome Impairments L5,S1 Comments Summary Comments mild impairment light touch and pin pick sensation at L lateral thigh and calf. Proprioception = WFL bilaterally Deep Tendon Reflex & Clonus Assessment Deep Tendon Reflex Bilateral Achilles Deep Tendon Reflex 2+ Normal Bilateral Patellar Deep Tendon Reflex 1+ Diminished PT-OP-K Range of Motion Start: 05/31/21 09:56 Freq: Status: Active Protocol: Document 05/31/21 09:56 (Rec: 05/31/21 10:26 [email or web address]) Hip Goniometric Range of Motion Hip Right Active Hip ROM WFL Yes Left Active Hip ROM WFL Yes PT-OP-L Special Tests Start: 05/31/21 09:56 Freq: Status: Active Protocol: Document 05/31/21 09:56 HH (Rec: 05/31/21 10:26 [email or web address]) Special Tests Lumbar Spine Special Tests Straight Leg Raise Test Results -ve Slump Test Results -ve PT-OP-M Strength Start: 05/31/21 09:56 Freq: Status: Active Protocol: Document 05/31/21 09:56 (Rec: 05/31/21 10:26 [email or web address]) Hip Strength Hip Manual Muscle Testing Right Flexion (L2) 4+ Good+ Extension (S1) 4+ Good+ Abduction 4+ Good+ Adduction 4+ Good+ Left Flexion (L2) 4+ Good+ Extension (S1) 4+ Good+ Abduction 4+ Good+ Adduction 4+ Good+ Knee Strength Knee Manual Muscle Testing Left Flexion (S2) 4- Good- Extension (L3) 4+ Good+ Right Flexion (S2) 4- Good- Extension (L3) 4+ Good+ Ankle/Foot Strength Ankle and Foot Manual Muscle Testing Right Dorsiflexion (L4) 4+ Good+ Plantarflexion (S1) 4+ Good+ Left Dorsiflexion (L4) 4+ Good+ Plantarflexion (S1) 4+ Good+ PT-OP-T Assessment and Plan Start: 05/31/21 09:56 Freq: Status: Active Protocol: Document 05/31/21 09:56 (Rec: 05/31/21 10:26 [email or web address]) Physical Therapy Assessment Rehab Potential Rehabilitation Potential Good Evaluation Complexity Number of Personal Factors/Comorbidities 3 or More Number of Body Systems Impaired 4 or More Clinical Presentation at Evaluation Stable Impairments Impairments Activity Tolerance,Balance, Functional Activities, Functional Mobility,Gait,Pain, Posture,ROM,Soft Tissue Mobility,Strength,Transfers Other Concerns Fall Risk mod Barriers to Rehabilitation RA, fibromyalgia, chronic pain , peripheral neuropathies, depression with anxiety, raynaud's syndrome, hyperipidemia, HTN, hypothyroidism Goals 6MWT Impairment will assess next visit. pain Impairment pt has generalized pain 4/10 on UEs and LEs Short Term Goal (STG) pt will have decrease in generalized pain no more than 3/10 in a daily basis. STG Duration 4 weeks Snf Goal (LTG) pt will have decrease in generalized pain no more than 2/10 in a daily basis. LTG Duration 8 weeks HEP Impairment pt does not have an exercise routine to keep her active Short Term Goal (STG) pt will be able to complete daily exercise routine safely and independently to improve her balance and overall endurance. STG Duration 4 weeks ABC scale Impairment pt scores 70.6 on ABC scale Short Term Goal (STG) pt will show improved confidence in balance to score >80 points on ABC scale STG Duration 4 weeks Snf Goal (LTG) pt will show improved confidence in balance to score >85 points on ABC scale LTG Duration 8 weeks Assessment Summary Assessment Monika is a 60yo female with RA, fibromyalgia, peripheral neuropathies, depression with anxiety, raynaud's syndrome, hyperipidemia, HTN, hypothyroidism here today for decreased balance, pain and weak LEs. Upon assessment, pt fortunately has WFL ROM and strength for B LEs but presents with some impaired SL balance and reduced sensation to LT and pin pick with lateral thigh and calf. Will assess for hip and lumbar pathology for next visit. Pt's major c/o at this point is fatigue, low endurance and decreased balance. I believe pt will benefit from skilled therapy to establish an exercise routine with gentle ROM and low impact strengthening and cardiovascular endurance training, along with energy conservation techniques, which allows her to complete her daily tasks safely without significant fatigue. Physical Therapy Plan Frequency and Duration Frequency of Treatment 1x/Week Duration of Treatment 8 weeks Plan of Care Start Date 05/31/21 Plan of Care End Date 07/30/21 Therapeutic Interventions Therapeutic Interventions Aquatic Therapy,Balance Training,Gait Training,Home Exercise Program,Manual Therapy,Neuromuscular Re- education,Patient/Caregiver Education,Self-Care/Home Management,Soft Tissue Mobilization,Taping, Therapeutic Activities, Therapeutic Exercises Modalities Cold Pack/Ice Massage,Electric Stimulation,Hot Packs, Infrared Therapy,Traction- Mechanical,Ultrasound Next Visit Focus/Plan Next Note Type Treatment Note Next Visit Plan change her appt 1x/ wk x8 weeks check hip and lumbar pathogy. 6MWT introduce pt to community gym introduce ROM and low impact ex routine. energy conservation.
--- NOTE | 2021-05-31 11:02 | PT.OPPOC ---
Physical, Occupational & Speech Therapy At 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 Address: [address] [place] [address], [facility] Email: [email or web address] Plan Of Care PT-OP-T Assessment and Plan Start: 05/31/21 09:56 Freq: Status: Active Protocol: Document 05/31/21 09:56 (Rec: 05/31/21 10:26 [email or web address]) Physical Therapy Assessment Rehab Potential Rehabilitation Potential Good Evaluation Complexity Number of Personal Factors/Comorbidities 3 or More Number of Body Systems Impaired 4 or More Clinical Presentation at Evaluation Stable Impairments Impairments Activity Tolerance,Balance, Functional Activities, Functional Mobility,Gait,Pain, Posture,ROM,Soft Tissue Mobility,Strength,Transfers Other Concerns Fall Risk mod Barriers to Rehabilitation RA, fibromyalgia, chronic pain , peripheral neuropathies, depression with anxiety, raynaud's syndrome, hyperipidemia, HTN, hypothyroidism Goals 6MWT Impairment will assess next visit. pain Impairment pt has generalized pain 4/10 on UEs and LEs Short Term Goal (STG) pt will have decrease in generalized pain no more than 3/10 in a daily basis. STG Duration 4 weeks Train Starter Goal (LTG) pt will have decrease in generalized pain no more than 2/10 in a daily basis. LTG Duration 8 weeks HEP Impairment pt does not have an exercise routine to keep her active Short Term Goal (STG) pt will be able to complete daily exercise routine safely and independently to improve her balance and overall endurance. STG Duration 4 weeks ABC scale Impairment pt scores 70.6 on ABC scale Short Term Goal (STG) pt will show improved confidence in balance to score >80 points on ABC scale STG Duration 4 weeks Train Starter Goal (LTG) pt will show improved confidence in balance to score >85 points on ABC scale LTG Duration 8 weeks Assessment Summary Assessment Monika is a 60yo female with RA, fibromyalgia, peripheral neuropathies, depression with anxiety, raynaud's syndrome, hyperipidemia, HTN, hypothyroidism here today for decreased balance, pain and weak LEs. Upon assessment, pt fortunately has WFL ROM and strength for B LEs but presents with some impaired SL balance and reduced sensation to LT and pin pick with lateral thigh and calf. Will assess for hip and lumbar pathology for next visit. Pt's major c/o at this point is fatigue, low endurance and decreased balance. I believe pt will benefit from skilled therapy to establish an exercise routine with gentle ROM and low impact strengthening and cardiovascular endurance training, along with energy conservation techniques, which allows her to complete her daily tasks safely without significant fatigue. Physical Therapy Plan Frequency and Duration Frequency of Treatment 1x/Week Duration of Treatment 8 weeks Plan of Care Start Date 05/31/21 Plan of Care End Date 07/30/21 Therapeutic Interventions Therapeutic Interventions Aquatic Therapy,Balance Training,Gait Training,Home Exercise Program,Manual Therapy,Neuromuscular Re- education,Patient/Caregiver Education,Self-Care/Home Management,Soft Tissue Mobilization,Taping, Therapeutic Activities, Therapeutic Exercises Modalities Cold Pack/Ice Massage,Electric Stimulation,Hot Packs, Infrared Therapy,Traction- Mechanical,Ultrasound Next Visit Focus/Plan Next Note Type Treatment Note Next Visit Plan change her appt 1x/ wk x8 weeks check hip and lumbar pathogy. 6MWT introduce pt to community gym introduce ROM and low impact ex routine. energy conservation. Plan of Care Dates Plan of Care Start Date 05/31/21 Plan of Care End Date 07/30/21 Electronically Signed by: Celena Brizuela PT 05/31/21 [id number] Please Sign and Return: I have reviewed this Plan of Care and certify that the skilled therapy services above are required to meet the patient?s needs. Physician Signature Date Printed Name and Credentials Clinical Instructor Signature Printed Name and Credentials
--- NOTE | 2021-06-05 16:29 | PT.OTN ---
Current Diagnoses Neuralgia and neuritis, unspecified (06/05/21) Other abnormalities of gait and mobility (06/05/21) Other general symptoms and signs (06/05/21) Physical Therapy Treatment Note PT-OP-A Visit Information Start: 05/31/21 09:56 Freq: Status: Active Protocol: Document 06/05/21 14:31 HH (Rec: 06/05/21 16:29 HH [id number]) Out-Patient Physical Therapy Visit Information Visit Information Visit Type Treatment Note Visit Start Time 14:35 Visit Stop Time 15:15 Total Visit Minutes 40 Visit Number 2/6 Number of DIGITAL COMMENTATOR Visits 0 PT-OP-B Current Condition Start: 05/31/21 09:56 Freq: Status: Active Protocol: Document 05/30/21 13:00 HH (Rec: 05/31/21 10:26 HH [email or web address]) Current Condition History of Current Condition Onset Date 6 months ago Current Complaints decreased balance, chronic pain, generalized weakness, LLE swelling History of Current Condition Monika is a 60yo female with RA, fibromyalgia, peripheral neuropathies, depression with anxiety, raynaud's syndrome, hyperipidemia, HTN, hypothyroidism here today for decreased balance, pain and weak LEs. She stated her balance suddenly has been declining since 6 months ago with 2 falls and often had to catch herself. She feels unstable with quick turns, or with eyes closed. She often stumbles by catching her foot on stairs as well. She has to couch surfing at home sometimes for support. Pt also has been experiencing constant numbness and burning down the lateral aspect of L thigh to Lateral calf. She recently has a new onset of swelling on LLE with no known cause (pt went to ER with negative DVT/blockage findings ). Besides, pt states her RA and fibromyalgia have significantly affected her life. She c/o fatigue daily and it's worsening who has to nap after caring for her mother for 4 hours per day. She cannot keep her own home clean due to fatigue. Pt also experiences night cramps on LEs and LE stiffness in the am or after being in one position for a long period of time. Prior Treatments and Tests pt had carpel tunnel surgery on B wrists d/t wrist pain and numbness. 05/28/21 for LLE swelling= negative DVT, rolf sign, blood clot. R knee x-ray= mod OA at medial compartment x-ray L hand =IMPRESSION: Absent trapezium, possibly postoperative change versus osteolysis previously. However, elsewhere no erosive changes are found. x-ray R hand= IMPRESSION: No trauma found. Future Testing and Treatments Planned pt is going to consult with neurologist Treatment Goals Patient/Caregiver Goals 1. to improve her overall balance and stamina for daily activities Personal Factors Other Personal Factors That May Effect RA, fibromyalgia, chronic pain Therapy/Recovery , peripheral neuropathies, depression with anxiety, raynaud's syndrome, hyperipidemia, HTN, hypothyroidism PT-OP-C Subjective Start: 05/31/21 09:56 Freq: Status: Active Protocol: Document 06/05/21 14:31 HH (Rec: 06/05/21 16:29 HH [id number]) OP-PT Subjective Patient Comments Patient Comments Im pretty fatigued already for today Patient Reported Progress Same PT-OP-D Balance Start: 05/31/21 09:56 Freq: Status: Active Protocol: Document 05/30/21 13:00 HH (Rec: 05/31/21 10:26 [email or web address]) Balance Tests Romberg Romberg WFL Single Limb Standing Single Limb- Right 28,25 Single Limb- Left 16,25 Tandem Tandem Standing with UE extended out for balance, bilateral >60 s Other Other Balance Tests Performed SLS with UE extended out for balance romberg with eyes closed= mild sagital plane weight shift. no LOB romberg with eyes open= WFL PT-OP-G Mobility & Gait Start: 05/31/21 09:56 Freq: Status: Active Protocol: Document 05/30/21 13:00 HH (Rec: 05/31/21 10:26 [email or web address]) OP Gait Assessment Comments Gait Comments pt presents with a heavier initial contact and loading response on RLE. PT-OP-H Neuro Start: 05/31/21 09:56 Freq: Status: Active Protocol: Document 05/30/21 13:00 HH (Rec: 05/31/21 10:26 [email or web address]) Sensation Evaluation Gross Sensation Gross Sensation Left LE Impaired Sensation Description Numbness,Tingling Dermatome Impairments L5,S1 Comments Summary Comments mild impairment light touch and pin pick sensation at L lateral thigh and calf. Proprioception = WFL bilaterally Deep Tendon Reflex & Clonus Assessment Deep Tendon Reflex Bilateral Achilles Deep Tendon Reflex 2+ Normal Bilateral Patellar Deep Tendon Reflex 1+ Diminished PT-OP-K Range of Motion Start: 05/31/21 09:56 Freq: Status: Active Protocol: Document 05/30/21 13:00 HH (Rec: 05/31/21 10:26 [email or web address]) Hip Goniometric Range of Motion Hip Right Active Hip ROM WFL Yes Left Active Hip ROM WFL Yes PT-OP-L Special Tests Start: 05/31/21 09:56 Freq: Status: Active Protocol: Document 05/30/21 13:00 HH (Rec: 05/31/21 10:26 [email or web address]) Special Tests Lumbar Spine Special Tests Straight Leg Raise Test Results -ve Slump Test Results -ve PT-OP-M Strength Start: 05/31/21 09:56 Freq: Status: Active Protocol: Document 05/30/21 13:00 HH (Rec: 05/31/21 10:26 [email or web address]) Hip Strength Hip Manual Muscle Testing Right Flexion (L2) 4+ Good+ Extension (S1) 4+ Good+ Abduction 4+ Good+ Adduction 4+ Good+ Left Flexion (L2) 4+ Good+ Extension (S1) 4+ Good+ Abduction 4+ Good+ Adduction 4+ Good+ Knee Strength Knee Manual Muscle Testing Left Flexion (S2) 4- Good- Extension (L3) 4+ Good+ Right Flexion (S2) 4- Good- Extension (L3) 4+ Good+ Ankle/Foot Strength Ankle and Foot Manual Muscle Testing Right Dorsiflexion (L4) 4+ Good+ Plantarflexion (S1) 4+ Good+ Left Dorsiflexion (L4) 4+ Good+ Plantarflexion (S1) 4+ Good+ PT-OP-Q Treatments Start: 05/31/21 09:56 Freq: Status: Active Protocol: Document 06/05/21 14:31 HH (Rec: 06/05/21 16:29 HH [id number]) Cardio Equipment Recumbent Stepper (Sci-Fit) Duration (Minutes) 6 Resistance 3 Therapeutic Exercises Supine Exercises piriformis stretch Side left Reps/Minutes 15 s x 5 Comments fpr HEP, pulling sensation noted Sitting Exercises ankle pump Reps/Minutes 15 Comments for HEP LAQ Reps/Minutes 15s x5 Comments no pain noted, pulling sensation noted Manual Therapy Treatment Soft Tissue Mobilization L leg Body Location swelling management noted. Mobilization Type Myofascial Release,Sustained Pressure,Trigger Point Release Intensity/Depth Moderate Body Position Supine Comments upward stroke from calfs to thighs no tenderness noted. Self-Care/Home Management Treatment Education Patient Education Body Mechanics,Home Exercise Program,Joint Protection,Pain Management,Posture,Safety Other Education spent time educating pt to use her recumbent bike at home > 20 mins a day for LE endurance training and swelling management. Educated pt on reducing caffeine intake and increase water intake (pt drinks 3-5 cups of coffee/ day ). PT-OP-T Assessment and Plan Start: 05/31/21 09:56 Freq: Status: Active Protocol: Document 06/05/21 14:31 HH (Rec: 06/05/21 16:29 HH [id number]) Physical Therapy Assessment Goals 6MWT Impairment will assess next visit. pain Impairment pt has generalized pain 4/10 on UEs and LEs Short Term Goal (STG) pt will have decrease in generalized pain no more than 3/10 in a daily basis. STG Duration 4 weeks Painter Apprentice Goal (LTG) pt will have decrease in generalized pain no more than 2/10 in a daily basis. LTG Duration 8 weeks HEP Impairment pt does not have an exercise routine to keep her active Short Term Goal (STG) pt will be able to complete daily exercise routine safely and independently to improve her balance and overall endurance. STG Duration 4 weeks ABC scale Impairment pt scores 70.6 on ABC scale Short Term Goal (STG) pt will show improved confidence in balance to score >80 points on ABC scale STG Duration 4 weeks Mcfp Goal (LTG) pt will show improved confidence in balance to score >85 points on ABC scale LTG Duration 8 weeks Assessment Summary Assessment first ibrahima tday with pt and primarily focused on pt education regarding lifestyle changes to manage her pain and energy level ( including reducing caffeine intake, increasing water intake, use of recumbent bike ). Also educated pt on the effect of gentle ROM and low impact activities to avoid flare up from her RA/ fibromyalgia. Pt shows good understanding. Will review her HEP next visit/. Physical Therapy Plan Frequency and Duration Frequency of Treatment 1x/Week Duration of Treatment 8 weeks Plan of Care Start Date 05/31/21 Plan of Care End Date 07/30/21 Therapeutic Interventions Therapeutic Interventions Aquatic Therapy,Balance Training,Gait Training,Home Exercise Program,Manual Therapy,Neuromuscular Re- education,Patient/Caregiver Education,Self-Care/Home Management,Soft Tissue Mobilization,Taping, Therapeutic Activities, Therapeutic Exercises Modalities Cold Pack/Ice Massage,Electric Stimulation,Hot Packs, Infrared Therapy,Traction- Mechanical,Ultrasound Next Visit Focus/Plan Next Note Type Treatment Note Next Visit Plan change her appt 1x/ wk x8 weeks check hip and lumbar pathogy. 6MWT introduce pt to community gym introduce ROM and low impact ex routine. energy conservation.
--- NOTE | 2021-06-07 10:32 | PT.OTN ---
Current Diagnoses Neuralgia and neuritis, unspecified (06/07/21) Other abnormalities of gait and mobility (06/07/21) Other general symptoms and signs (06/07/21) Physical Therapy Treatment Note PT-OP-A Visit Information Start: 05/31/21 09:56 Freq: Status: Active Protocol: Document 06/07/21 09:48 HH (Rec: 06/07/21 10:32 [id number]) Out-Patient Physical Therapy Visit Information Visit Information Visit Type Treatment Note Visit Start Time 09:48 Visit Stop Time 10:30 Total Visit Minutes 42 Visit Number 3/6 Number of CLIENT SUCCESS SPECIALIST Visits 0 PT-OP-B Current Condition Start: 05/31/21 09:56 Freq: Status: Active Protocol: Document 05/30/21 13:00 HH (Rec: 05/31/21 10:26 [email or web address]) Current Condition History of Current Condition Onset Date 6 months ago Current Complaints decreased balance, chronic pain, generalized weakness, LLE swelling History of Current Condition Monika is a 60yo female with RA, fibromyalgia, peripheral neuropathies, depression with anxiety, raynaud's syndrome, hyperipidemia, HTN, hypothyroidism here today for decreased balance, pain and weak LEs. She stated her balance suddenly has been declining since 6 months ago with 2 falls and often had to catch herself. She feels unstable with quick turns, or with eyes closed. She often stumbles by catching her foot on stairs as well. She has to couch surfing at home sometimes for support. Pt also has been experiencing constant numbness and burning down the lateral aspect of L thigh to Lateral calf. She recently has a new onset of swelling on LLE with no known cause (pt went to ER with negative DVT/blockage findings ). Besides, pt states her RA and fibromyalgia have significantly affected her life. She c/o fatigue daily and it's worsening who has to nap after caring for her mother for 4 hours per day. She cannot keep her own home clean due to fatigue. Pt also experiences night cramps on LEs and LE stiffness in the am or after being in one position for a long period of time. Prior Treatments and Tests pt had carpel tunnel surgery on B wrists d/t wrist pain and numbness. 05/28/21 for LLE swelling= negative DVT, rolf sign, blood clot. R knee x-ray= mod OA at medial compartment x-ray L hand =IMPRESSION: Absent trapezium, possibly postoperative change versus osteolysis previously. However, elsewhere no erosive changes are found. x-ray R hand= IMPRESSION: No trauma found. Future Testing and Treatments Planned pt is going to consult with neurologist Treatment Goals Patient/Caregiver Goals 1. to improve her overall balance and stamina for daily activities Personal Factors Other Personal Factors That May Effect RA, fibromyalgia, chronic pain Therapy/Recovery , peripheral neuropathies, depression with anxiety, raynaud's syndrome, hyperipidemia, HTN, hypothyroidism PT-OP-C Subjective Start: 05/31/21 09:56 Freq: Status: Active Protocol: Document 06/07/21 09:48 HH (Rec: 06/07/21 10:32 HH [id number]) OP-PT Subjective Patient Comments Patient Comments I think my sewlling has gone down. I did the bike 20 mins and i went for a nap right away. Patient Reported Progress Improving PT-OP-D Balance Start: 05/31/21 09:56 Freq: Status: Active Protocol: Document 05/30/21 13:00 HH (Rec: 05/31/21 10:26 [email or web address]) Balance Tests Romberg Romberg WFL Single Limb Standing Single Limb- Right 28,25 Single Limb- Left 16,25 Tandem Tandem Standing with UE extended out for balance, bilateral >60 s Other Other Balance Tests Performed SLS with UE extended out for balance romberg with eyes closed= mild sagital plane weight shift. no LOB romberg with eyes open= WFL PT-OP-G Mobility & Gait Start: 05/31/21 09:56 Freq: Status: Active Protocol: Document 05/30/21 13:00 HH (Rec: 05/31/21 10:26 [email or web address]) OP Gait Assessment Comments Gait Comments pt presents with a heavier initial contact and loading response on RLE. PT-OP-H Neuro Start: 05/31/21 09:56 Freq: Status: Active Protocol: Document 05/30/21 13:00 HH (Rec: 05/31/21 10:26 [email or web address]) Sensation Evaluation Gross Sensation Gross Sensation Left LE Impaired Sensation Description Numbness,Tingling Dermatome Impairments L5,S1 Comments Summary Comments mild impairment light touch and pin pick sensation at L lateral thigh and calf. Proprioception = WFL bilaterally Deep Tendon Reflex & Clonus Assessment Deep Tendon Reflex Bilateral Achilles Deep Tendon Reflex 2+ Normal Bilateral Patellar Deep Tendon Reflex 1+ Diminished PT-OP-K Range of Motion Start: 05/31/21 09:56 Freq: Status: Active Protocol: Document 05/30/21 13:00 HH (Rec: 05/31/21 10:26 [email or web address]) Hip Goniometric Range of Motion Hip Right Active Hip ROM WFL Yes Left Active Hip ROM WFL Yes PT-OP-L Special Tests Start: 05/31/21 09:56 Freq: Status: Active Protocol: Document 05/30/21 13:00 HH (Rec: 05/31/21 10:26 [email or web address]) Special Tests Lumbar Spine Special Tests Straight Leg Raise Test Results -ve Slump Test Results -ve PT-OP-M Strength Start: 05/31/21 09:56 Freq: Status: Active Protocol: Document 05/30/21 13:00 HH (Rec: 05/31/21 10:26 [email or web address]) Hip Strength Hip Manual Muscle Testing Right Flexion (L2) 4+ Good+ Extension (S1) 4+ Good+ Abduction 4+ Good+ Adduction 4+ Good+ Left Flexion (L2) 4+ Good+ Extension (S1) 4+ Good+ Abduction 4+ Good+ Adduction 4+ Good+ Knee Strength Knee Manual Muscle Testing Left Flexion (S2) 4- Good- Extension (L3) 4+ Good+ Right Flexion (S2) 4- Good- Extension (L3) 4+ Good+ Ankle/Foot Strength Ankle and Foot Manual Muscle Testing Right Dorsiflexion (L4) 4+ Good+ Plantarflexion (S1) 4+ Good+ Left Dorsiflexion (L4) 4+ Good+ Plantarflexion (S1) 4+ Good+ PT-OP-Q Treatments Start: 05/31/21 09:56 Freq: Status: Active Protocol: Document 06/07/21 09:48 HH (Rec: 06/07/21 10:32 HH [id number]) Cardio Equipment Recumbent Stepper (Sci-Fit) Duration (Minutes) 6 Resistance 3 Gym Equipment Shuttle Balance red Details static, EO Reps/Duration 5mins Comments unable to complete EC able to maintain balance 10s x8 Therapeutic Exercises Sitting Exercises ankle pump Reps/Minutes 20 Comments for HEP LAQ Reps/Minutes 20s x2 Comments no pain noted, pulling sensation noted Standing Exercises ankle board Standing Exercise Name sagittal, lateral. Side bilateral Reps/Minutes 10 x2 Manual Therapy Treatment Soft Tissue Mobilization L leg Body Location swelling management noted. Mobilization Type Myofascial Release,Sustained Pressure,Trigger Point Release Intensity/Depth Moderate Body Position Supine Comments improved calf tightness noted today. upward stroke from calfs to thighs PT-OP-T Assessment and Plan Start: 05/31/21 09:56 Freq: Status: Active Protocol: Document 06/07/21 09:48 HH (Rec: 06/07/21 10:32 HH [id number]) Physical Therapy Assessment Goals 6MWT Impairment will assess next visit. pain Impairment pt has generalized pain 4/10 on UEs and LEs Short Term Goal (STG) pt will have decrease in generalized pain no more than 3/10 in a daily basis. STG Duration 4 weeks Reheater Helper Goal (LTG) pt will have decrease in generalized pain no more than 2/10 in a daily basis. LTG Duration 8 weeks HEP Impairment pt does not have an exercise routine to keep her active Short Term Goal (STG) pt will be able to complete daily exercise routine safely and independently to improve her balance and overall endurance. STG Duration 4 weeks ABC scale Impairment pt scores 70.6 on ABC scale Short Term Goal (STG) pt will show improved confidence in balance to score >80 points on ABC scale STG Duration 4 weeks Reheater Helper Goal (LTG) pt will show improved confidence in balance to score >85 points on ABC scale LTG Duration 8 weeks Assessment Summary Assessment pt reports improved swelling at LLE but did get fatigue after 20mins of biking. Educated her to split it to 10 mins per session. Pt jesu session well today with balance ex. She does have difficulty balancing with EC on balance boar.d Physical Therapy Plan Frequency and Duration Frequency of Treatment 1x/Week Duration of Treatment 8 weeks Plan of Care Start Date 05/31/21 Plan of Care End Date 07/30/21 Therapeutic Interventions Therapeutic Interventions Aquatic Therapy,Balance Training,Gait Training,Home Exercise Program,Manual Therapy,Neuromuscular Re- education,Patient/Caregiver Education,Self-Care/Home Management,Soft Tissue Mobilization,Taping, Therapeutic Activities, Therapeutic Exercises Modalities Cold Pack/Ice Massage,Electric Stimulation,Hot Packs, Infrared Therapy,Traction- Mechanical,Ultrasound Next Visit Focus/Plan Next Note Type Treatment Note Next Visit Plan change her appt 1x/ wk x8 weeks check hip and lumbar pathogy. 6MWT introduce pt to community gym introduce ROM and low impact ex routine. energy conservation.
--- NOTE | 2021-06-11 13:48 | PT.OTN ---
Current Diagnoses Neuralgia and neuritis, unspecified (06/11/21) Other abnormalities of gait and mobility (06/11/21) Other general symptoms and signs (06/11/21) Physical Therapy Treatment Note PT-OP-A Visit Information Start: 05/31/21 09:56 Freq: Status: Active Protocol: Document 06/11/21 12:57 HH (Rec: 06/11/21 13:48 HH [id number]) Out-Patient Physical Therapy Visit Information Visit Information Visit Type Treatment Note Visit Start Time 13:00 Visit Stop Time 13:45 Total Visit Minutes 45 Visit Number 4/6 Number of FINGER WAVER Visits 0 PT-OP-B Current Condition Start: 05/31/21 09:56 Freq: Status: Active Protocol: Document 05/30/21 13:00 HH (Rec: 05/31/21 10:26 HH [email or web address]) Current Condition History of Current Condition Onset Date 6 months ago Current Complaints decreased balance, chronic pain, generalized weakness, LLE swelling History of Current Condition Monika is a 60yo female with RA, fibromyalgia, peripheral neuropathies, depression with anxiety, raynaud's syndrome, hyperipidemia, HTN, hypothyroidism here today for decreased balance, pain and weak LEs. She stated her balance suddenly has been declining since 6 months ago with 2 falls and often had to catch herself. She feels unstable with quick turns, or with eyes closed. She often stumbles by catching her foot on stairs as well. She has to couch surfing at home sometimes for support. Pt also has been experiencing constant numbness and burning down the lateral aspect of L thigh to Lateral calf. She recently has a new onset of swelling on LLE with no known cause (pt went to ER with negative DVT/blockage findings ). Besides, pt states her RA and fibromyalgia have significantly affected her life. She c/o fatigue daily and it's worsening who has to nap after caring for her mother for 4 hours per day. She cannot keep her own home clean due to fatigue. Pt also experiences night cramps on LEs and LE stiffness in the am or after being in one position for a long period of time. Prior Treatments and Tests pt had carpel tunnel surgery on B wrists d/t wrist pain and numbness. 05/28/21 for LLE swelling= negative DVT, rolf sign, blood clot. R knee x-ray= mod OA at medial compartment x-ray L hand =IMPRESSION: Absent trapezium, possibly postoperative change versus osteolysis previously. However, elsewhere no erosive changes are found. x-ray R hand= IMPRESSION: No trauma found. Future Testing and Treatments Planned pt is going to consult with neurologist Treatment Goals Patient/Caregiver Goals 1. to improve her overall balance and stamina for daily activities Personal Factors Other Personal Factors That May Effect RA, fibromyalgia, chronic pain Therapy/Recovery , peripheral neuropathies, depression with anxiety, raynaud's syndrome, hyperipidemia, HTN, hypothyroidism PT-OP-C Subjective Start: 05/31/21 09:56 Freq: Status: Active Protocol: Document 06/11/21 12:57 HH (Rec: 06/11/21 13:48 HH [id number]) OP-PT Subjective Patient Comments Patient Comments I overdid by doing lots of house cleaning on thursday so i got a cramp on my entire left leg later. My swelling has been a lot of better. I have been tripping less now. Patient Reported Progress Improving PT-OP-D Balance Start: 05/31/21 09:56 Freq: Status: Active Protocol: Document 05/30/21 13:00 HH (Rec: 05/31/21 10:26 HH [email or web address]) Balance Tests Romberg Romberg WFL Single Limb Standing Single Limb- Right 28,25 Single Limb- Left 16,25 Tandem Tandem Standing with UE extended out for balance, bilateral >60 s Other Other Balance Tests Performed SLS with UE extended out for balance romberg with eyes closed= mild sagital plane weight shift. no LOB romberg with eyes open= WFL PT-OP-G Mobility & Gait Start: 05/31/21 09:56 Freq: Status: Active Protocol: Document 05/30/21 13:00 HH (Rec: 05/31/21 10:26 HH [email or web address]) OP Gait Assessment Comments Gait Comments pt presents with a heavier initial contact and loading response on RLE. PT-OP-H Neuro Start: 05/31/21 09:56 Freq: Status: Active Protocol: Document 05/30/21 13:00 HH (Rec: 05/31/21 10:26 HH [email or web address]) Sensation Evaluation Gross Sensation Gross Sensation Left LE Impaired Sensation Description Numbness,Tingling Dermatome Impairments L5,S1 Comments Summary Comments mild impairment light touch and pin pick sensation at L lateral thigh and calf. Proprioception = WFL bilaterally Deep Tendon Reflex & Clonus Assessment Deep Tendon Reflex Bilateral Achilles Deep Tendon Reflex 2+ Normal Bilateral Patellar Deep Tendon Reflex 1+ Diminished PT-OP-K Range of Motion Start: 05/31/21 09:56 Freq: Status: Active Protocol: Document 05/30/21 13:00 HH (Rec: 05/31/21 10:26 [email or web address]) Hip Goniometric Range of Motion Hip Right Active Hip ROM WFL Yes Left Active Hip ROM WFL Yes PT-OP-L Special Tests Start: 05/31/21 09:56 Freq: Status: Active Protocol: Document 05/30/21 13:00 HH (Rec: 05/31/21 10:26 [email or web address]) Special Tests Lumbar Spine Special Tests Straight Leg Raise Test Results -ve Slump Test Results -ve PT-OP-M Strength Start: 05/31/21 09:56 Freq: Status: Active Protocol: Document 05/30/21 13:00 HH (Rec: 05/31/21 10:26 [email or web address]) Hip Strength Hip Manual Muscle Testing Right Flexion (L2) 4+ Good+ Extension (S1) 4+ Good+ Abduction 4+ Good+ Adduction 4+ Good+ Left Flexion (L2) 4+ Good+ Extension (S1) 4+ Good+ Abduction 4+ Good+ Adduction 4+ Good+ Knee Strength Knee Manual Muscle Testing Left Flexion (S2) 4- Good- Extension (L3) 4+ Good+ Right Flexion (S2) 4- Good- Extension (L3) 4+ Good+ Ankle/Foot Strength Ankle and Foot Manual Muscle Testing Right Dorsiflexion (L4) 4+ Good+ Plantarflexion (S1) 4+ Good+ Left Dorsiflexion (L4) 4+ Good+ Plantarflexion (S1) 4+ Good+ PT-OP-Q Treatments Start: 05/31/21 09:56 Freq: Status: Active Protocol: Document 06/11/21 12:57 HH (Rec: 06/11/21 13:48 HH [id number]) Cardio Equipment Recumbent Stepper (Sci-Fit) Duration (Minutes) 6 Resistance 3 Gym Equipment Shuttle Recovery SL squat Resistance #37 Shuttle Recovery Platform Stable Reps/Time 10 x 2 Therapeutic Exercises Supine Exercises piriformis stretch Side left Reps/Minutes 15 s x 5 Comments fpr HEP, pulling sensation noted Sitting Exercises ankle pump Reps/Minutes 20 Comments for HEP LAQ Reps/Minutes 20s x2 Comments no pain noted, pulling sensation noted Standing Exercises calf raises Side bilateral Reps/Minutes 8 x2 Comments for HEP ankle board Standing Exercise Name sagittal, lateral. Side bilateral Reps/Minutes 10 x2 Manual Therapy Treatment Soft Tissue Mobilization L leg Body Location swelling management noted. Mobilization Type Myofascial Release,Sustained Pressure,Trigger Point Release Intensity/Depth Moderate Body Position Supine Comments improved calf tightness noted today. upward stroke from ankle to calf. PT-OP-T Assessment and Plan Start: 05/31/21 09:56 Freq: Status: Active Protocol: Document 06/11/21 12:57 HH (Rec: 06/11/21 13:48 HH [id number]) Physical Therapy Assessment Goals 6MWT Impairment will assess next visit. pain Impairment pt has generalized pain 4/10 on UEs and LEs Short Term Goal (STG) pt will have decrease in generalized pain no more than 3/10 in a daily basis. STG Duration 4 weeks Leather Skinner Goal (LTG) pt will have decrease in generalized pain no more than 2/10 in a daily basis. LTG Duration 8 weeks HEP Impairment pt does not have an exercise routine to keep her active Short Term Goal (STG) pt will be able to complete daily exercise routine safely and independently to improve her balance and overall endurance. STG Duration 4 weeks ABC scale Impairment pt scores 70.6 on ABC scale Short Term Goal (STG) pt will show improved confidence in balance to score >80 points on ABC scale STG Duration 4 weeks Snf Goal (LTG) pt will show improved confidence in balance to score >85 points on ABC scale LTG Duration 8 weeks Assessment Summary Assessment Pt shows good improvements with her swelling. Focused on her swelling at the ankle today and added calf raises to HEP today. Recommended pt to continue PT once a week until end june to assist maintain her routine. Physical Therapy Plan Frequency and Duration Frequency of Treatment 1x/Week Duration of Treatment 8 weeks Plan of Care Start Date 05/31/21 Plan of Care End Date 07/30/21 Therapeutic Interventions Therapeutic Interventions Aquatic Therapy,Balance Training,Gait Training,Home Exercise Program,Manual Therapy,Neuromuscular Re- education,Patient/Caregiver Education,Self-Care/Home Management,Soft Tissue Mobilization,Taping, Therapeutic Activities, Therapeutic Exercises Modalities Cold Pack/Ice Massage,Electric Stimulation,Hot Packs, Infrared Therapy,Traction- Mechanical,Ultrasound Next Visit Focus/Plan Next Note Type Treatment Note Next Visit Plan change her appt 1x/ wk x8 weeks check hip and lumbar pathogy. 6MWT introduce pt to community gym introduce ROM and low impact ex routine. energy conservation.
--- NOTE | 2021-06-13 15:35 | PT.OTN ---
Current Diagnoses Neuralgia and neuritis, unspecified (06/13/21) Other abnormalities of gait and mobility (06/13/21) Other general symptoms and signs (06/13/21) Physical Therapy Treatment Note PT-OP-A Visit Information Start: 05/31/21 09:56 Freq: Status: Active Protocol: Document 06/13/21 12:59 HH (Rec: 06/13/21 15:35 HH [id number]) Out-Patient Physical Therapy Visit Information Visit Information Visit Type Treatment Note Visit Start Time 13:00 Visit Stop Time 13:45 Total Visit Minutes 45 Visit Number 5/6 Number of APPLIANCE WORKER Visits 0 PT-OP-B Current Condition Start: 05/31/21 09:56 Freq: Status: Active Protocol: Document 05/30/21 13:00 HH (Rec: 05/31/21 10:26 HH [email or web address]) Current Condition History of Current Condition Onset Date 6 months ago Current Complaints decreased balance, chronic pain, generalized weakness, LLE swelling History of Current Condition Monika is a 60yo female with RA, fibromyalgia, peripheral neuropathies, depression with anxiety, raynaud's syndrome, hyperipidemia, HTN, hypothyroidism here today for decreased balance, pain and weak LEs. She stated her balance suddenly has been declining since 6 months ago with 2 falls and often had to catch herself. She feels unstable with quick turns, or with eyes closed. She often stumbles by catching her foot on stairs as well. She has to couch surfing at home sometimes for support. Pt also has been experiencing constant numbness and burning down the lateral aspect of L thigh to Lateral calf. She recently has a new onset of swelling on LLE with no known cause (pt went to ER with negative DVT/blockage findings ). Besides, pt states her RA and fibromyalgia have significantly affected her life. She c/o fatigue daily and it's worsening who has to nap after caring for her mother for 4 hours per day. She cannot keep her own home clean due to fatigue. Pt also experiences night cramps on LEs and LE stiffness in the am or after being in one position for a long period of time. Prior Treatments and Tests pt had carpel tunnel surgery on B wrists d/t wrist pain and numbness. 05/28/21 for LLE swelling= negative DVT, rolf sign, blood clot. R knee x-ray= mod OA at medial compartment x-ray L hand =IMPRESSION: Absent trapezium, possibly postoperative change versus osteolysis previously. However, elsewhere no erosive changes are found. x-ray R hand= IMPRESSION: No trauma found. Future Testing and Treatments Planned pt is going to consult with neurologist Treatment Goals Patient/Caregiver Goals 1. to improve her overall balance and stamina for daily activities Personal Factors Other Personal Factors That May Effect RA, fibromyalgia, chronic pain Therapy/Recovery , peripheral neuropathies, depression with anxiety, raynaud's syndrome, hyperipidemia, HTN, hypothyroidism PT-OP-C Subjective Start: 05/31/21 09:56 Freq: Status: Active Protocol: Document 06/13/21 12:59 HH (Rec: 06/13/21 15:35 HH [id number]) OP-PT Subjective Patient Comments Patient Comments I saw both neurologist and rhematologist yesterday. 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 Im tired today already because of lots of errands. My swelling is doing pretty well. Patient Reported Progress Improving PT-OP-D Balance Start: 05/31/21 09:56 Freq: Status: Active Protocol: Document 05/30/21 13:00 HH (Rec: 05/31/21 10:26 HH [email or web address]) Balance Tests Romberg Romberg WFL Single Limb Standing Single Limb- Right 28,25 Single Limb- Left 16,25 Tandem Tandem Standing with UE extended out for balance, bilateral >60 s Other Other Balance Tests Performed SLS with UE extended out for balance romberg with eyes closed= mild sagital plane weight shift. no LOB romberg with eyes open= WFL PT-OP-G Mobility & Gait Start: 05/31/21 09:56 Freq: Status: Active Protocol: Document 05/30/21 13:00 HH (Rec: 05/31/21 10:26 HH [email or web address]) OP Gait Assessment Comments Gait Comments pt presents with a heavier initial contact and loading response on RLE. PT-OP-H Neuro Start: 05/31/21 09:56 Freq: Status: Active Protocol: Document 05/30/21 13:00 HH (Rec: 05/31/21 10:26 HH [email or web address]) Sensation Evaluation Gross Sensation Gross Sensation Left LE Impaired Sensation Description Numbness,Tingling Dermatome Impairments L5,S1 Comments Summary Comments mild impairment light touch and pin pick sensation at L lateral thigh and calf. Proprioception = WFL bilaterally Deep Tendon Reflex & Clonus Assessment Deep Tendon Reflex Bilateral Achilles Deep Tendon Reflex 2+ Normal Bilateral Patellar Deep Tendon Reflex 1+ Diminished PT-OP-K Range of Motion Start: 05/31/21 09:56 Freq: Status: Active Protocol: Document 05/30/21 13:00 HH (Rec: 05/31/21 10:26 [email or web address]) Hip Goniometric Range of Motion Hip Right Active Hip ROM WFL Yes Left Active Hip ROM WFL Yes PT-OP-L Special Tests Start: 05/31/21 09:56 Freq: Status: Active Protocol: Document 05/30/21 13:00 HH (Rec: 05/31/21 10:26 [email or web address]) Special Tests Lumbar Spine Special Tests Straight Leg Raise Test Results -ve Slump Test Results -ve PT-OP-M Strength Start: 05/31/21 09:56 Freq: Status: Active Protocol: Document 05/30/21 13:00 HH (Rec: 05/31/21 10:26 [email or web address]) Hip Strength Hip Manual Muscle Testing Right Flexion (L2) 4+ Good+ Extension (S1) 4+ Good+ Abduction 4+ Good+ Adduction 4+ Good+ Left Flexion (L2) 4+ Good+ Extension (S1) 4+ Good+ Abduction 4+ Good+ Adduction 4+ Good+ Knee Strength Knee Manual Muscle Testing Left Flexion (S2) 4- Good- Extension (L3) 4+ Good+ Right Flexion (S2) 4- Good- Extension (L3) 4+ Good+ Ankle/Foot Strength Ankle and Foot Manual Muscle Testing Right Dorsiflexion (L4) 4+ Good+ Plantarflexion (S1) 4+ Good+ Left Dorsiflexion (L4) 4+ Good+ Plantarflexion (S1) 4+ Good+ PT-OP-Q Treatments Start: 05/31/21 09:56 Freq: Status: Active Protocol: Document 06/13/21 12:59 HH (Rec: 06/13/21 15:35 HH [id number]) Cardio Equipment Recumbent Stepper (Sci-Fit) Duration (Minutes) 6 Resistance 3 Therapeutic Exercises Sitting Exercises ankle pump Reps/Minutes 20 Comments for HEP LAQ Reps/Minutes 20s x2 Comments no pain noted, pulling sensation noted Manual Therapy Treatment Soft Tissue Mobilization L leg Body Location swelling management noted. Mobilization Type Myofascial Release,Sustained Pressure,Trigger Point Release Intensity/Depth Moderate Body Position Supine Comments improved calf tightness noted today. upward stroke from ankle to calf. Taping L ankle swelling Body Location L ankle Treatment Focus swelling management Type of Tape Kinesio Tape Skin Inspection good Comments medial and lateral ankle ( knitting pattern) PT-OP-T Assessment and Plan Start: 05/31/21 09:56 Freq: Status: Active Protocol: Document 06/13/21 12:59 HH (Rec: 06/13/21 15:35 HH [id number]) Physical Therapy Assessment Goals 6MWT Impairment will assess next visit. pain Impairment pt has generalized pain 4/10 on UEs and LEs Short Term Goal (STG) pt will have decrease in generalized pain no more than 3/10 in a daily basis. STG Duration 4 weeks Mcc Goal (LTG) pt will have decrease in generalized pain no more than 2/10 in a daily basis. LTG Duration 8 weeks HEP Impairment pt does not have an exercise routine to keep her active Short Term Goal (STG) pt will be able to complete daily exercise routine safely and independently to improve her balance and overall endurance. STG Duration 4 weeks ABC scale Impairment pt scores 70.6 on ABC scale Short Term Goal (STG) pt will show improved confidence in balance to score >80 points on ABC scale STG Duration 4 weeks Food [employer] Beverage Service Manager Goal (LTG) pt will show improved confidence in balance to score >85 points on ABC scale LTG Duration 8 weeks Assessment Summary Assessment Pt went to see neurologist and believes she has lymphedema on LLE. pt reports she has two long days and feel somewhat exhasted today. This session focused mostly on edema management and used KT tape at L ankle to facilitate drainage. Pt jesu session well and will assess her edema next visit. Physical Therapy Plan Frequency and Duration Frequency of Treatment 1x/Week Duration of Treatment 8 weeks Plan of Care Start Date 05/31/21 Plan of Care End Date 07/30/21 Therapeutic Interventions Therapeutic Interventions Aquatic Therapy,Balance Training,Gait Training,Home Exercise Program,Manual Therapy,Neuromuscular Re- education,Patient/Caregiver Education,Self-Care/Home Management,Soft Tissue Mobilization,Taping, Therapeutic Activities, Therapeutic Exercises Modalities Cold Pack/Ice Massage,Electric Stimulation,Hot Packs, Infrared Therapy,Traction- Mechanical,Ultrasound Next Visit Focus/Plan Next Note Type Treatment Note Next Visit Plan change her appt 1x/ wk x8 weeks check hip and lumbar pathogy. 6MWT introduce pt to community gym introduce ROM and low impact ex routine. energy conservation.
--- NOTE | 2021-06-18 15:27 | PT.OTN ---
Current Diagnoses Neuralgia and neuritis, unspecified (06/18/21) Other abnormalities of gait and mobility (06/18/21) Other general symptoms and signs (06/18/21) Physical Therapy Treatment Note PT-OP-A Visit Information Start: 05/31/21 09:56 Freq: Status: Active Protocol: Document 06/18/21 14:36 HH (Rec: 06/18/21 15:27 HH [id number]) Out-Patient Physical Therapy Visit Information Visit Information Visit Type Treatment Note Visit Start Time 14:33 Visit Stop Time 15:15 Total Visit Minutes 42 Visit Number 04/28 Number of FLAP CURER Visits 0 PT-OP-B Current Condition Start: 05/31/21 09:56 Freq: Status: Active Protocol: Document 05/30/21 13:00 HH (Rec: 05/31/21 10:26 HH [email or web address]) Current Condition History of Current Condition Onset Date 6 months ago Current Complaints decreased balance, chronic pain, generalized weakness, LLE swelling History of Current Condition Monika is a 60yo female with RA, fibromyalgia, peripheral neuropathies, depression with anxiety, raynaud's syndrome, hyperipidemia, HTN, hypothyroidism here today for decreased balance, pain and weak LEs. She stated her balance suddenly has been declining since 6 months ago with 2 falls and often had to catch herself. She feels unstable with quick turns, or with eyes closed. She often stumbles by catching her foot on stairs as well. She has to couch surfing at home sometimes for support. Pt also has been experiencing constant numbness and burning down the lateral aspect of L thigh to Lateral calf. She recently has a new onset of swelling on LLE with no known cause (pt went to ER with negative DVT/blockage findings ). Besides, pt states her RA and fibromyalgia have significantly affected her life. She c/o fatigue daily and it's worsening who has to nap after caring for her mother for 4 hours per day. She cannot keep her own home clean due to fatigue. Pt also experiences night cramps on LEs and LE stiffness in the am or after being in one position for a long period of time. Prior Treatments and Tests pt had carpel tunnel surgery on B wrists d/t wrist pain and numbness. 05/28/21 for LLE swelling= negative DVT, rolf sign, blood clot. R knee x-ray= mod OA at medial compartment x-ray L hand =IMPRESSION: Absent trapezium, possibly postoperative change versus osteolysis previously. However, elsewhere no erosive changes are found. x-ray R hand= IMPRESSION: No trauma found. Future Testing and Treatments Planned pt is going to consult with neurologist Treatment Goals Patient/Caregiver Goals 1. to improve her overall balance and stamina for daily activities Personal Factors Other Personal Factors That May Effect RA, fibromyalgia, chronic pain Therapy/Recovery , peripheral neuropathies, depression with anxiety, raynaud's syndrome, hyperipidemia, HTN, hypothyroidism PT-OP-C Subjective Start: 05/31/21 09:56 Freq: Status: Active Protocol: Document 06/18/21 14:36 HH (Rec: 06/18/21 15:27 HH [id number]) OP-PT Subjective Patient Comments Patient Comments My swelling seems to be better but I was on my feet a lot during the weekend. I also notice my balance while washing my face with my eyes closed has gotten better. However, my melvin cyst tends to hurt more while using my recumbent bike. Patient Reported Progress Improving PT-OP-D Balance Start: 05/31/21 09:56 Freq: Status: Active Protocol: Document 05/30/21 13:00 HH (Rec: 05/31/21 10:26 HH [email or web address]) Balance Tests Romberg Romberg WFL Single Limb Standing Single Limb- Right 28,25 Single Limb- Left 16,25 Tandem Tandem Standing with UE extended out for balance, bilateral >60 s Other Other Balance Tests Performed SLS with UE extended out for balance romberg with eyes closed= mild sagital plane weight shift. no LOB romberg with eyes open= WFL PT-OP-G Mobility & Gait Start: 05/31/21 09:56 Freq: Status: Active Protocol: Document 05/30/21 13:00 HH (Rec: 05/31/21 10:26 HH [email or web address]) OP Gait Assessment Comments Gait Comments pt presents with a heavier initial contact and loading response on RLE. PT-OP-H Neuro Start: 05/31/21 09:56 Freq: Status: Active Protocol: Document 05/30/21 13:00 HH (Rec: 05/31/21 10:26 HH [email or web address]) Sensation Evaluation Gross Sensation Gross Sensation Left LE Impaired Sensation Description Numbness,Tingling Dermatome Impairments L5,S1 Comments Summary Comments mild impairment light touch and pin pick sensation at L lateral thigh and calf. Proprioception = WFL bilaterally Deep Tendon Reflex & Clonus Assessment Deep Tendon Reflex Bilateral Achilles Deep Tendon Reflex 2+ Normal Bilateral Patellar Deep Tendon Reflex 1+ Diminished PT-OP-K Range of Motion Start: 05/31/21 09:56 Freq: Status: Active Protocol: Document 05/30/21 13:00 HH (Rec: 05/31/21 10:26 [email or web address]) Hip Goniometric Range of Motion Hip Right Active Hip ROM WFL Yes Left Active Hip ROM WFL Yes PT-OP-L Special Tests Start: 05/31/21 09:56 Freq: Status: Active Protocol: Document 05/30/21 13:00 HH (Rec: 05/31/21 10:26 [email or web address]) Special Tests Lumbar Spine Special Tests Straight Leg Raise Test Results -ve Slump Test Results -ve PT-OP-M Strength Start: 05/31/21 09:56 Freq: Status: Active Protocol: Document 05/30/21 13:00 HH (Rec: 05/31/21 10:26 [email or web address]) Hip Strength Hip Manual Muscle Testing Right Flexion (L2) 4+ Good+ Extension (S1) 4+ Good+ Abduction 4+ Good+ Adduction 4+ Good+ Left Flexion (L2) 4+ Good+ Extension (S1) 4+ Good+ Abduction 4+ Good+ Adduction 4+ Good+ Knee Strength Knee Manual Muscle Testing Left Flexion (S2) 4- Good- Extension (L3) 4+ Good+ Right Flexion (S2) 4- Good- Extension (L3) 4+ Good+ Ankle/Foot Strength Ankle and Foot Manual Muscle Testing Right Dorsiflexion (L4) 4+ Good+ Plantarflexion (S1) 4+ Good+ Left Dorsiflexion (L4) 4+ Good+ Plantarflexion (S1) 4+ Good+ PT-OP-Q Treatments Start: 05/31/21 09:56 Freq: Status: Active Protocol: Document 06/18/21 14:36 HH (Rec: 06/18/21 15:27 [id number]) Cardio Equipment Recumbent Stepper (Sci-Fit) Duration (Minutes) 6 Resistance 3 Therapeutic Exercises Standing Exercises calf stretch Side bilateral Reps/Minutes 15 sec x 5 Comments reports of good feeling calf raises Side bilateral Reps/Minutes 8 x2 Comments for HEP ankle board Standing Exercise Name sagittal, lateral. Side bilateral Reps/Minutes 8 mins Comments EO then EC Manual Therapy Treatment Soft Tissue Mobilization L leg Body Location swelling management noted. Mobilization Type Myofascial Release,Sustained Pressure,Trigger Point Release Intensity/Depth Moderate Body Position Supine Comments some calf tightness noted today. upward stroke from ankle to calf. Taping L ankle swelling Body Location L ankle Treatment Focus swelling management Type of Tape Kinesio Tape Skin Inspection good Comments medial and lateral ankle ( knitting pattern) Neuro Re-Education Treatment Balance Activities EC Surface blue foam Reps/Duration 10 mins Comments static on blue foam (EC/EO) then with weight shift on blue foam with EC. excessive swaying noted during EC. PT-OP-T Assessment and Plan Start: 05/31/21 09:56 Freq: Status: Active Protocol: Document 06/18/21 14:36 HH (Rec: 06/18/21 15:27 HH [id number]) Physical Therapy Assessment Goals 6MWT Impairment will assess next visit. pain Impairment pt has generalized pain 4/10 on UEs and LEs Short Term Goal (STG) pt will have decrease in generalized pain no more than 3/10 in a daily basis. STG Duration 4 weeks Shelter Goal (LTG) pt will have decrease in generalized pain no more than 2/10 in a daily basis. LTG Duration 8 weeks HEP Impairment pt does not have an exercise routine to keep her active Short Term Goal (STG) pt will be able to complete daily exercise routine safely and independently to improve her balance and overall endurance. STG Duration 4 weeks ABC scale Impairment pt scores 70.6 on ABC scale Short Term Goal (STG) pt will show improved confidence in balance to score >80 points on ABC scale STG Duration 4 weeks Shelter Goal (LTG) pt will show improved confidence in balance to score >85 points on ABC scale LTG Duration 8 weeks Assessment Summary Assessment pt reports she has improved balance and LLE swelling/edema since evaluation. Added balance activities today and pt shows excessive sway with EC, but she shows improvements with repetitions. Physical Therapy Plan Frequency and Duration Frequency of Treatment 1x/Week Duration of Treatment 8 weeks Plan of Care Start Date 05/31/21 Plan of Care End Date 07/30/21 Therapeutic Interventions Therapeutic Interventions Aquatic Therapy,Balance Training,Gait Training,Home Exercise Program,Manual Therapy,Neuromuscular Re- education,Patient/Caregiver Education,Self-Care/Home Management,Soft Tissue Mobilization,Taping, Therapeutic Activities, Therapeutic Exercises Modalities Cold Pack/Ice Massage,Electric Stimulation,Hot Packs, Infrared Therapy,Traction- Mechanical,Ultrasound Next Visit Focus/Plan Next Note Type Treatment Note Next Visit Plan calf stretch, raises ankle pump, LAQ balance activities with EC/ ankle focused. low impact strengthening ex.
--- NOTE | 2021-07-04 15:36 | PT-OP ANOTE ---
Pt no-showed. She called 15 minutes after appointment time stating she had just woken up. service desk lead reminded her of attendance policy and next appointment.
--- NOTE | 2021-08-15 11:48 | PT.OPDS ---
Current Diagnoses Neuralgia and neuritis, unspecified (06/18/21) Other abnormalities of gait and mobility (06/18/21) Other general symptoms and signs (06/18/21) Visit Care Team Role Provider Type JAMAR Santana Attending Provider Advanced Transaction Processor Family Provider Primary Care Provider Referring Provider Specialty: Family Practice Address: [address] [place] [address], [facility] Email: [email or web address] Visit Number Visit Number 04/28 Discharge Summary PT-OP-T Assessment and Plan Start: 05/31/21 09:56 Freq: Status: Active Protocol: Document 08/15/21 11:48 (Rec: 08/15/21 11:48 [email or web address]) Physical Therapy Plan Discharge Physical Therapy Discharge Reasons Patient Request Discharge Comments pt requested to be DC in June
== END 2021-08-15 13:19 | disposition home or self-care (01) ==
LOC: PHYS 14:30
PROVIDERS: Family Provider Nurse Practitioner; PCP Nurse Practitioner; Referring Provider Nurse Practitioner; Visit Provider Nurse Practitioner
DX: R26.89 Other abnormalities of gait and mobility (principal); M79.2 Neuralgia and neuritis, unspecified; R68.89 Other general symptoms and signs
CPT/HCPCS: 97110; 97112; 97140; 97163; 97535

== ENCOUNTER → 2021-08-29 11:09 | Outpatient (CLI) | payer OTHER, MEDICAID, SELFPAY ==
--- NOTE | 2021-08-29 11:11 | DI.RAD.S_ITS ---
PROCEDURE: XR LUMBAR SPINE MIN 4V INDICATIONS: chronic back pain TECHNIQUE: 5 views of the lumbar spine were acquired, including bilateral oblique views. COMPARISON: Reference is made to the MR lumbar spine report dated July 16, 2021. FINDINGS: Bones: 5 nonrib-bearing vertebrae are present. Grade 1 anterolisthesis at L4-5 and L5-S1. Facet arthrosis, most prominent at L5-S1. No vertebral body compression fractures. No suspicious bony lesions. Soft tissues: Overlying bowel gas pattern is normal. Pelvic calcifications are seen, which may reflect phleboliths. Oblique images: No pars defects. IMPRESSION: No acute osseous abnormality. Dictated by: Parth Argueta M.D. on 08/29/2021 at 13:25 Approved by: Parth Argueta M.D. on 08/29/2021 at 13:35
== END ==
PROVIDERS: Family Provider Nurse Practitioner; PCP Nurse Practitioner; Referring Provider Nurse Practitioner; Visit Provider Nurse Practitioner
DX: M47.819 Spondylosis without myelopathy or radiculopathy, site unspecified (principal); M48.00 Spinal stenosis, site unspecified; M51.26 Other intervertebral disc displacement, lumbar region; M53.9 Dorsopathy, unspecified
CPT/HCPCS: 72110

== ENCOUNTER → 2021-09-16 08:32 | Outpatient (CLI) | payer OTHER, MEDICAID, SELFPAY ==
[2021-09-16 13:50] LABS: COVID19 -Nasal RAPID Negative (Negative)
== END ==
PROVIDERS: Family Provider Nurse Practitioner; PCP Nurse Practitioner; Visit Provider Physical Medicine & Rehabilitation
DX: Z20.822 Contact with and (suspected) exposure to COVID-19 (principal)
CPT/HCPCS: 87635; C9803

== ENCOUNTER 2021-09-17 07:24 | Outpatient (CLI) | payer OTHER, MEDICAID, SELFPAY ==
[2021-09-17] VITALS (9 sets, daily range): BP systolic 120–151; BP diastolic 59–73; PULSE 67–83; RESP 10–18; TEMP 36.5; O2SAT 94–100
--- NOTE | 2021-09-17 07:30 | DI.RAD.S_ITS ---
PROCEDURE: PAIN L INTERLAMINAR/CAUDAL INJ INDICATIONS: SPONDYLOSIS COMPARISON: [facility], CR, XR LUMBAR SPINE MIN 4V, 08/29/2021, 11:05. [facility], MR, MR LUMBAR SPINE WITHOUT CONTRAST, 07/16/2021, 11:25. FINDINGS: Fluoroscopic spot filming was performed to verify placement of a spinal needle at the L5-S1 level, as labeled on the films. Appropriate location of the needle tip was confirmed by injection of iodinated contrast. IMPRESSION: No significant intraprocedural abnormality. Dictated by: Cheng Guerra M.D. on 09/17/2021 at 8:29 Approved by: Cheng Guerra M.D. on 09/17/2021 at 8:29
[2021-09-17] MEDS: fentaNYL 100 MCG/2 ML INJ 50 MCG IV (08:28)
[2021-09-17] MEDS: MIDAZOLAM 5 MG/5 ML VIAL IV (08:28)
[2021-09-17] MEDS: IOPAMIDOL 15 ML VIAL 3 ML INJ (08:33)
[2021-09-17] MEDS: BUPIVACAINE 0.25% (PF) VIAL 2 ML INJ (08:33)
[2021-09-17] MEDS: BETAMETHASONE 30 MG/5 ML MDV 12 MG INJ (08:35)
[2021-09-17] MEDS: DEXAMETHASONE 10 MG/ML VIAL 20 MG INJ (08:35)
--- NOTE | 2021-09-17 08:47 | PM.PROC.IR.1 ---
Date/Time/Diagnoses Date of procedure: 09/17/21 Time of procedure: 08:47 Pre-procedure diagnosis: 1. HNP WITH RADICULAR FEATURES, 2. MULTILEVEL CENTRAL STENOSIS, Post-procedure diagnosis: same Procedure Notes Procedure: 1. FLUOROSCOPICALLY GUIDED CONTRAST CONTROLLED INTERLAMINAR EPIDURAL STEROID INJECTION - L5/S1 Indications: Monika is referred by JAMAR Park for treatment of Bilateral Foraminal Stenosis L>R LE symptoms. Physician: Kennedy Patel Total Fluoroscopy time (seconds): 5 Total sedation minutes: 10 Complications: none Procedure in detail & Post-procedure care: FINDINGS Multilevel Central Spinal Stenosis with Nerve Root Compression DESCRIPTION OF PROCEDURE Fluoroscopically guided, contrast-controlled L5/S1 translaminar epidural steroid injection. Following review of allergy and review of potential side effects and complications, including, but not necessarily limited to, infection, allergic reaction, local tissue breakdown, temporary as well as permanent nerve injury, paralysis, stroke and possible , the patient indicated that the patient understood and agreed to proceed. An informed consent document was signed by the patient, witnessed by a nurse, and placed in the patient's chart. Additionally, other treatment options including modalities, medications, and physical therapy were reviewed with the patient. After review of previous anaesthesic history and IV conscious sedation the patient was deemed safe to proceed with today?s procedure with IV conscious sedation as ASA class II designation. Safety time-out was performed to confirm patient ID, procedure to be performed and site of procedure. IV sedation was accomplished with a combination of 2mg of Versed and 50mcg of Fentanyl administered by the RN after DO order, titrated to patient comfort during the course of the procedure while the patient remained responsive to all verbal commands. In the prone position, following sterile prep and drape of the lumbar region, the L5/S1 translaminar space was identified fluoroscopically. The skin was anesthetized via a 25-gauge, 1.5-inch needle with 1% lidocaine solution. At this point, a 22-gauge short bevel spinal needle was atraumatically introduced and advanced under fluoroscopic guidance into the region of the L5/S1 translaminar space. Depth was confirmed on lateral view. Radiological data, including multiple fluoroscopic views of the lumbar spine, reveal a spinal needle at the L5/S1 translaminar space. Lateral views then show placement of the needle in the epidural space. Subsequent views show contrast material flowing superiorly and inferiorly in the epidural space. No vascular or intrathecal uptake is observed. At this point, using loss of resistance technique with saline and air, the epidural space was entered. This was confirmed following negative aspiration with injection of approximately 1.5cc of Isovue 200, showing excellent epidural flow without vascular or intrathecal uptake. At this point, 1 cc of 1% lidocaine solution combined with 4cc or 20mg of dexamethasone and 12mg of betamethasone was injected without incident. The patent tolerated the procedure without signs of symptoms of complications prior to transfer to the recovery area for further monitoring. The patient was then transferred to the recovery area where they were observed for an appropriate period of time after the injection. The patient reported a VAS score of 6 prior to the procedure and a post-procedure VAS of 0. POST OP INSTRUCTIONS The patient was provided a Pain Log to continue to record their response to the target-specific procedure prior to follow-up visit with their referring physician. Additionally, specific post-injection care instructions and a contact number to our office were provided if concerns arise regarding possible complications associated with the procedure are suspected.
== END 2021-09-17 09:10 | disposition home or self-care (01) ==
LOC: RAD 07:29
PROVIDERS: Family Provider Nurse Practitioner; PCP Nurse Practitioner; Referring Provider Physical Medicine & Rehabilitation; Visit Provider Physical Medicine & Rehabilitation
DX: M51.16 Intervertebral disc disorders with radiculopathy, lumbar region (principal); M48.061 Spinal stenosis, lumbar region without neurogenic claudication
CPT/HCPCS: 62323; 99152; J0702; J1100; J2250; J3010

== ENCOUNTER → 2021-12-11 12:06 | Outpatient (CLI) | payer OTHER, MEDICAID, SELFPAY ==
[2021-12-11 13:12] LABS: Add Manual Diff / Slide Review NO; Basophils Absolute Auto 0 /uL (0-100); Basophils Percent Auto 0.3 % (0-2); Eosinophils Absolute Auto 200 /uL (0-450); Eosinophils Percent Auto 3.9 % (2-4); Hematocrit 36.5 % (36-46); Hemoglobin 12.3 g/dL (12.0-16.0); Lymphocytes Absolute Auto 1400 /uL (1100-4500); Lymphocytes Percent Auto 30.4 % (25-40); Mean Corpuscular HGB Conc 33.7 % (30-36); Mean Corpuscular Hemoglobin 33.3 PG (26-34); Mean Corpuscular Volume 98.9 fL (80-100); Monocytes Absolute Auto 200 /uL (0-900); Monocytes Percent Auto 4.7 % (3-14); Neutrophils Absolute Auto 2800 /uL (1500-7000); Neutrophils Percent Auto 60.7 % (50-75); Platelet Count 282 X10^3/uL (150-400); Red Blood Cell Count 3.69 X10^6/uL (4.0-5.2); White Blood Cell Count 4.7 X10^3/uL (4.5-11.0)
[2021-12-11 13:48] LABS: HEMOLYSIS < 15 (0-50); Potassium 4.3 mmol/L (3.4-5.1)
[2021-12-11 13:51] LABS: Alanine Aminotransferase 13 IU/L (<35); Albumin 4.2 g/dL (3.5-5.0); Albumin Globulin Ratio 1.4 (1.0-2.8); Alkaline Phosphatase 81 U/L (38-126); Aspartate Aminotransferase 34 IU/L (14-36); BUN Creatinine Ratio 19.7 (6-22); Bilirubin Total 0.6 mg/dL (0.2-1.3); Blood Urea Nitrogen 12 mg/dL (7-17); C-Reactive Protein Quant 0.7 mg/dL (<1.0); Calcium 9.4 mg/dL (8.4-10.2); Carbon Dioxide 27 mmol/L (22-32); Chloride 105 mmol/L (98-107); Estimated Glomerular Filt Rate > 60.0 mL/min (>60); Globulin 2.9 g/dL (1.7-4.1); Glucose 95 mg/dL (80-110); Sodium 140 mmol/L (137-145); Total Protein 7.1 g/dL (6.3-8.2)
[2021-12-11 13:53] LABS: Erythrocyte Sedimentation Rate 31 MM/HR (0-20)
[2021-12-11 14:46] LABS: Hepatitis B Surface Antigen NEGATIVE s/c (NEGATIVE)
[2021-12-11 15:07] LABS: Hep C Virus Ab w/Reflex Quant NEGATIVE s/c (NEGATIVE)
[2021-12-12 10:04] LABS: Hepatitis B Core Antibody Negative (Negative); Hepatitis B Surf Ab Qualitativ Non Reactive (.)
[2021-12-13 08:21] LABS: QuantiFERON Mitogen Value >10.00 IU/mL (.); QuantiFERON Nil Value 0.06 IU/mL (.); QuantiFERON TB Gold Plus Negative (Negative); QuantiFERON TB1 Ag Value 0.03 IU/mL (.); QuantiFERON TB2 Ag Value 0.04 IU/mL (.)
== END ==
PROVIDERS: Family Provider Nurse Practitioner; PCP Nurse Practitioner; Referring Provider Internal Medicine Rheumatology; Visit Provider Internal Medicine Rheumatology
DX: M05.79 Rheumatoid arthritis with rheumatoid factor of multiple sites without organ or systems involvement (principal)
CPT/HCPCS: 36415; 80053; 85025; 85651; 86140; 86480; 86704; 86706; 86803; 87340

== ENCOUNTER → 2021-12-30 13:13 | Outpatient (CLI) | payer OTHER, MEDICAID, SELFPAY ==
[2021-12-30 15:01] LABS: COVID19 -Nasal RAPID Negative (Negative)
== END ==
PROVIDERS: Family Provider Nurse Practitioner; PCP Nurse Practitioner; Visit Provider Physical Medicine & Rehabilitation
DX: Z20.822 Contact with and (suspected) exposure to COVID-19 (principal)
CPT/HCPCS: 87635; C9803

== ENCOUNTER 2021-12-31 12:54 | Outpatient (CLI) | payer OTHER, MEDICAID, SELFPAY ==
[2021-12-31] VITALS (8 sets, daily range): BP systolic 117–142; BP diastolic 73–81; PULSE 70–87; RESP 12–20; TEMP 36.7; O2SAT 94–100
--- NOTE | 2021-12-31 12:57 | DI.RAD.S_ITS ---
PROCEDURE: PAIN L/S FACET INJ/BLK 1ST EARL COMPARISON: [facility], CR, XR LUMBAR SPINE MIN 4V, 08/29/2021, 11:05. [facility], MR, MR LUMBAR SPINE WITHOUT CONTRAST, 07/16/2021, 11:25. INDICATIONS: SPONDYLOSIS FINDINGS: 6 intraoperative fluoroscopy images demonstrate needle placement at L4-L5 and L5-S1 facet joints bilaterally. IMPRESSION: Fluoroscopy for pain management. Dictated by: Jaguar Jeff M.D. on 12/31/2021 at 14:17 Approved by: Jaguar Jeff M.D. on 12/31/2021 at 14:17
[2021-12-31] MEDS: fentaNYL 100 MCG/2 ML INJ 50 MCG IV (13:35)
[2021-12-31] MEDS: MIDAZOLAM 5 MG/5 ML VIAL IV (13:35)
[2021-12-31] MEDS: LIDOCAINE 1% 20 ML (13:39)
[2021-12-31] MEDS: BUPIVACAINE 0.5% (PF) VIAL 5 ML INJ (13:39)
[2021-12-31] MEDS: BETAMETHASONE 30 MG/5 ML MDV 12 MG INJ (13:40)
[2021-12-31] MEDS: IOPAMIDOL 15 ML VIAL 3 ML INJ (13:40)
--- NOTE | 2021-12-31 13:54 | P.PCN_ITS ---
Date/Time/Diagnoses Date of procedure: 12/31/21 Time of procedure: 13:54 Pre-procedure diagnosis: 1. FACET ARTHROPATHY 2. AXIAL LBP 3. MULTILEVEL DDD This procedure is found to meet the Governor's proclamation 20-24.2 regarding non urgent procedures. This patient meets multiple criteria for the procedure including continuing or worsening of significant or severe pain, combined with further deterioration of the patient's condition or overall health as well as delay in treatment would be expected to result in less positive ultimate medical outcome. Therefore the decision to perform the procedure in an outpatient hospital setting is found to be in accordance with guidelines of the proclama tion. Post-procedure diagnosis: same Procedure Notes Procedure: 1. FLUOROSCOPICALLY GUIDED CONTRAST CONTROLLED FACET JOINT INJECTIONS BILATERAL L4/5, L5/S1 Indications: Monika is referred by Dr. Park for treatment of Axial LBP Physician: Kennedy Patel Total Fluoroscopy time (seconds): 14 Total sedation minutes: 10 Complications: none Procedure in detail & Post-procedure care: FINDINGS Multilevel Facet Arthropathy with Clinically significant axial LBP DESCRIPTION OF PROCEDURE Fluoroscopically guided, contrast-controlled bilateral L4/5, L5/S1 facet joint injections. Following review of allergy and review of potential side effects and complications, including, but not necessarily limited to, infection, allergic reaction, local tissue breakdown, stroke, temporary or permanent nerve injury, paralysis, and possible , the patient indicated that the patient understood and agreed to proceed. An informed consent document was signed by the patient, witnessed by a nurse, and placed in the patient's chart. Additionally, other treatment options including medications, modalities, and physical therapy were reviewed with the patient. After review of previous anaesthesic history and IV conscious sedation the patient was deemed safe to proceed with today?s procedure with IV conscious sedation as ASA class II designation. Safety time-out was performed to confirm patient ID, procedure to be performed and site of procedure. IV sedation was accomplished with a combination of 2mg of Versed and 50mcg of Fentanyl was administered by the RN after DO order, titrated to patient comfort during the course of the procedure while the patient remained responsive to all verbal commands In the prone position, following sterile prep and drape of the lumbar region, the posterior aspect of the L4/5, L5/S1 facet joints were identified fluoroscopically. The skin was anesthetized via a 25-gauge 1.5inch needle with 1% lidocaine solution into the corresponding facet joints. At this point, a 22- gauge 3.5-inch spinal needle was atraumatically introduced and advanced under fluoroscopic guidance into the corresponding facet joints. Following negative aspiration, injections of approximately 0.2cc of Isovue 200 confirmed interarticular placement without vascular uptake. The identical procedure was then performed at the L4/5, L5/S1 facet joints on the left. Radiological data, including multiple fluoroscopic views of the lumbosacral spine, reveal a spinal needle at the L4/5, L5/S1 facet joints bilaterally. Subsequent views show flow of contrast material both superiorly and inferiorly within the joint space without vascular or intrathecal uptake. At this point, a total of 0.5cc including a mixture of 0.25cc Marcaine and 0.25cc betamethasone was injected without complication into each of the corresponding facet joints. The patient tolerated the procedure well without signs or symptoms of complications prior to transfer to the recovery area continued monitoring without incident. The patient was then transferred to the recovery area where they were observed for an appropriate period of time after the injection. The patient reported a VAS score of 7 prior to the procedure and a post- procedure VAS of 0. POST OP INSTRUCTIONS The patient was provided a Pain Log to continue to record their response to the target-specific procedure prior to follow-up visit with their referring physician. Additionally, specific post-injection care instructions and a contact number to our office were provided if concerns arise regarding possible complications associated with the procedure are suspected.
== END 2021-12-31 14:13 | disposition home or self-care (01) ==
PROVIDERS: Family Provider Nurse Practitioner; PCP Nurse Practitioner; Referring Provider Physical Medicine & Rehabilitation; Visit Provider Physical Medicine & Rehabilitation
DX: M47.816 Spondylosis without myelopathy or radiculopathy, lumbar region (principal); M47.817 Spondylosis without myelopathy or radiculopathy, lumbosacral region; M51.36 Other intervertebral disc degeneration, lumbar region; M51.37 Other intervertebral disc degeneration, lumbosacral region
CPT/HCPCS: 64493; 64494; 99152; J0702; J2250; J3010

== ENCOUNTER → 2022-01-29 10:17 | Outpatient (CLI) | payer OTHER, MEDICAID, SELFPAY ==
[2022-01-29 12:53] LABS: Appearance Urine UA CLEAR; Bilirubin Urine UA NEGATIVE (NEGATIVE); Color Urine UA YELLOW; Glucose Urine UA NEGATIVE (Negative); Ketones Urine UA NEGATIVE (NEGATIVE); Leukocyte Esterase Urine UA TRACE (NEGATIVE); Nitrite Urine UA NEGATIVE (Negative); Occult Blood Urine UA 1+ (Negative); Protein Urine UA NEGATIVE (Negative); Specific Gravity Urine UA <=1.005 (1.000-1.035); Urobilinogen Urine UA 0.2 E.U./dL (0.2)
[2022-01-29 12:56] LABS: Bacteria Urine None Seen; Culture Indicated Urine Cult Not Indicated; RBC Urine 0-1/HPF (0-5/HPF); Squamous Epithelial Cell Urine 5-10 /HPF (0-5/HPF); WBC Urine 1-5/HPF (0-5/HPF)
== END ==
PROVIDERS: Family Provider Nurse Practitioner; PCP Nurse Practitioner; Referring Provider Nurse Practitioner; Visit Provider Nurse Practitioner
DX: R32 Unspecified urinary incontinence (principal)
CPT/HCPCS: 81001

== ENCOUNTER → 2022-02-26 11:57 | Outpatient (CLI) | payer OTHER, MEDICAID, SELFPAY ==
[2022-02-26 12:43] LABS: Add Manual Diff / Slide Review NO; Basophils Absolute Auto 0 /uL (0-100); Basophils Percent Auto 0.7 % (0-2); Eosinophils Absolute Auto 200 /uL (0-450); Eosinophils Percent Auto 3.7 % (2-4); Hematocrit 37.6 % (36-46); Hemoglobin 12.6 g/dL (12.0-16.0); Lymphocytes Absolute Auto 1500 /uL (1100-4500); Lymphocytes Percent Auto 27.3 % (25-40); Mean Corpuscular HGB Conc 33.6 % (30-36); Mean Corpuscular Hemoglobin 33.1 PG (26-34); Mean Corpuscular Volume 98.5 fL (80-100); Monocytes Absolute Auto 300 /uL (0-900); Monocytes Percent Auto 4.9 % (3-14); Neutrophils Absolute Auto 3400 /uL (1500-7000); Neutrophils Percent Auto 63.4 % (50-75); Platelet Count 283 X10^3/uL (150-400); Red Blood Cell Count 3.82 X10^6/uL (4.0-5.2); Red Cell Distribution Width 14.1 % (11.6-14.8); White Blood Cell Count 5.4 X10^3/uL (4.5-11.0)
[2022-02-26 12:57] LABS: Alanine Aminotransferase 19 IU/L (<35); Albumin 4.2 g/dL (3.5-5.0); Albumin Globulin Ratio 1.3 (1.0-2.8); Alkaline Phosphatase 76 U/L (38-126); Aspartate Aminotransferase 40 IU/L (14-36); BUN Creatinine Ratio 22.4 (6-22); Bilirubin Total 0.3 mg/dL (0.2-1.3); Blood Urea Nitrogen 15 mg/dL (7-17); C-Reactive Protein Quant < 0.5 mg/dL (<1.0); Carbon Dioxide 25 mmol/L (22-32); Chloride 108 mmol/L (98-107); Estimated Glomerular Filt Rate > 60.0 mL/min (>60); Globulin 3.3 g/dL (1.7-4.1); Glucose 111 mg/dL (80-110); HEMOLYSIS < 15 (0-50); Potassium 4.2 mmol/L (3.4-5.1); Sodium 142 mmol/L (137-145); Total Protein 7.5 g/dL (6.3-8.2)
[2022-02-26 13:00] LABS: Erythrocyte Sedimentation Rate 22 MM/HR (0-20)
[2022-02-28 16:09] LABS: Albumin 3.6 g/dL (2.9-4.4); Alpha 1 Globulin 0.2 g/dL (0.0-0.4); Alpha 2 Globulin 0.8 g/dL (0.4-1.0); Gamma Globulin 0.9 g/dL (0.4-1.8); Protein, Total 6.5 g/dL (6.0-8.5)
== END ==
PROVIDERS: Family Provider Nurse Practitioner; PCP Nurse Practitioner; Referring Provider Internal Medicine Rheumatology; Visit Provider Internal Medicine Rheumatology
DX: M35.1 Other overlap syndromes (principal); M05.79 Rheumatoid arthritis with rheumatoid factor of multiple sites without organ or systems involvement; Z79.899 Other long term (current) drug therapy
CPT/HCPCS: 36415; 80053; 84155; 84165; 85025; 85651; 86140

== ENCOUNTER → 2022-04-24 15:16 | Outpatient (CLI) | payer OTHER, MEDICAID, SELFPAY ==
--- NOTE | 2022-04-24 | DI.MG.S_ITS ---
BILATERAL DIGITAL SCREENING MAMMOGRAM 3D/2D WITH CAD: 04/24/2022 CLINICAL: Routine screening. Comparison is made to exams dated: 04/19/2021 mammogram, 05/14/2019 mammogram, and 05/27/2017 mammogram - [facility]. The tissue of both breasts is predominantly fatty. Current study was also evaluated with a Computer Aided Detection (CAD) system. No significant masses, calcifications, or other findings are seen in either breast. There has been no significant interval change. IMPRESSION: NEGATIVE There is no mammographic evidence of malignancy. A 1 year screening mammogram is recommended. This exam was interpreted at Station ID: [id number]. NOTE: For mammograms, a report in lay terms will be sent to the patient. Approximately 15% of breast malignancies will not be visualized mammographically. In the management of a palpable breast mass, a negative mammogram must not discourage biopsy of a clinically suspicious lesion. Electronically Signed By: Lanie martin/baltazar:04/25/2022 09:04:39 letter sent: Normal Exam ACR BI-RADS Category 1: Negative [id number]
== END ==
PROVIDERS: Family Provider Nurse Practitioner; PCP Nurse Practitioner; Referring Provider Nurse Practitioner; Visit Provider Nurse Practitioner
DX: Z12.31 Encounter for screening mammogram for malignant neoplasm of breast (principal)
CPT/HCPCS: 77063; 77067

== ENCOUNTER → 2022-05-19 12:06 | Outpatient (CLI) | payer OTHER, MEDICAID, SELFPAY ==
[2022-05-19 12:56] LABS: Add Manual Diff / Slide Review NO; Basophils Absolute Auto 0 /uL (0-100); Basophils Percent Auto 0.8 % (0-2); Eosinophils Absolute Auto 200 /uL (0-450); Eosinophils Percent Auto 3.6 % (2-4); Hematocrit 37.6 % (36-46); Hemoglobin 12.8 g/dL (12.0-16.0); Lymphocytes Absolute Auto 1500 /uL (1100-4500); Lymphocytes Percent Auto 27.7 % (25-40); Mean Corpuscular Hemoglobin 32.9 PG (26-34); Mean Corpuscular Volume 96.8 fL (80-100); Monocytes Absolute Auto 400 /uL (0-900); Neutrophils Absolute Auto 3300 /uL (1500-7000); Neutrophils Percent Auto 60.9 % (50-75); Platelet Count 269 X10^3/uL (150-400); Red Blood Cell Count 3.89 X10^6/uL (4.0-5.2); Red Cell Distribution Width 14.4 % (11.6-14.8); White Blood Cell Count 5.4 X10^3/uL (4.5-11.0)
[2022-05-19 13:22] LABS: Erythrocyte Sedimentation Rate 18 MM/HR (0-20)
[2022-05-19 13:38] LABS: Alanine Aminotransferase 17 IU/L (<35); Albumin 4.3 g/dL (3.5-5.0); Albumin Globulin Ratio 1.4 (1.0-2.8); Alkaline Phosphatase 84 U/L (38-126); Aspartate Aminotransferase 40 IU/L (14-36); BUN Creatinine Ratio 16.9 (6-22); Bilirubin Total 0.5 mg/dL (0.2-1.3); Blood Urea Nitrogen 12 mg/dL (7-17); C-Reactive Protein Quant 0.7 mg/dL (<1.0); Carbon Dioxide 28 mmol/L (22-32); Chloride 104 mmol/L (98-107); Estimated Glomerular Filt Rate > 60 mL/min (>60); Globulin 3.1 g/dL (1.7-4.1); Glucose 101 mg/dL (80-110); HEMOLYSIS < 15 (0-50); Potassium 4.7 mmol/L (3.4-5.1); Sodium 140 mmol/L (137-145); Total Protein 7.4 g/dL (6.3-8.2)
[2022-05-21 14:08] LABS: Albumin 3.8 g/dL (2.9-4.4); Alpha 1 Globulin 0.2 g/dL (0.0-0.4); Alpha 2 Globulin 0.8 g/dL (0.4-1.0); Gamma Globulin 0.9 g/dL (0.4-1.8); Protein, Total 6.7 g/dL (6.0-8.5)
== END ==
PROVIDERS: Family Provider Nurse Practitioner; PCP Nurse Practitioner; Referring Provider Internal Medicine Rheumatology; Visit Provider Internal Medicine Rheumatology
DX: Z79.899 Other long term (current) drug therapy (principal); M35.1 Other overlap syndromes; M05.79 Rheumatoid arthritis with rheumatoid factor of multiple sites without organ or systems involvement
CPT/HCPCS: 36415; 80053; 84155; 84165; 85025; 85651; 86140

== ENCOUNTER → 2022-06-03 14:34 | Outpatient (CLI) | payer OTHER, MEDICAID, SELFPAY ==
[2022-06-03 16:17] LABS: Cholesterol 165 mg/dL (140-199); HDL Cholesterol 49 mg/dL (40-60); LDL Cholesterol Calculated 93 mg/dL (<100); Triglycerides 117 mg/dL (35-150)
[2022-06-03 17:05] LABS: Hepatitis B Surface Antigen NEGATIVE s/c (NEGATIVE)
[2022-06-03 17:25] LABS: Hep C Virus Ab w/Reflex Quant NEGATIVE s/c (NEGATIVE)
[2022-06-03 17:39] LABS: Creatinine Urine Random 125.4 mg/dL
[2022-06-03 17:45] LABS: Microalbumi Creatinin Ratio Ur 7.1 ug/mg CR (<30); Microalbumin Urine Random 0.9 mg/dL (0-1.6)
[2022-06-04 05:29] LABS: Hepatitis B Surf AB Quant <3.1 mIU/mL (Immunity>9.9)
[2022-06-05 07:44] LABS: Thyroid Stimulating Hormone 1.52 uIU/mL (0.47-4.68)
[2022-06-05 08:23] LABS: Free T3, Triiodothyronine Free 3.31 pg/mL (2.77-5.27); Free T4, Direct Thyroxine 1.36 ng/dL (0.78-2.19)
[2022-06-05 14:36] LABS: QuantiFERON Mitogen Value >10.00 IU/mL (.); QuantiFERON Nil Value 0.02 IU/mL (.); QuantiFERON TB Gold Plus Negative (Negative); QuantiFERON TB1 Ag Value 0.04 IU/mL (.); QuantiFERON TB2 Ag Value 0.05 IU/mL (.)
== END ==
PROVIDERS: Family Provider Nurse Practitioner; PCP Nurse Practitioner; Referring Provider Internal Medicine Rheumatology; Visit Provider Registered Nurse
DX: Z00.00 Encounter for general adult medical examination without abnormal findings (principal); M05.79 Rheumatoid arthritis with rheumatoid factor of multiple sites without organ or systems involvement
CPT/HCPCS: 36415; 80061; 82043; 82570; 84439; 84443; 84481; 86480; 86706; 86803; 87340

== ENCOUNTER → 2022-06-24 11:39 | Outpatient (CLI) | payer OTHER, MEDICAID, SELFPAY ==
[2022-06-24 13:43] LABS: Bilirubin Urine UA NEGATIVE (NEGATIVE); Color Urine UA YELLOW; Glucose Urine UA NEGATIVE (Negative); Ketones Urine UA NEGATIVE (NEGATIVE); Leukocyte Esterase Urine UA 1+ (NEGATIVE); Nitrite Urine UA NEGATIVE (Negative); Occult Blood Urine UA 2+ (Negative); Protein Urine UA NEGATIVE (Negative); Specific Gravity Urine UA 1.015 (1.000-1.035); Urobilinogen Urine UA 0.2 E.U./dL (0.2)
[2022-06-24 13:52] LABS: Appearance Urine UA Slightly Cloudy
[2022-06-24 13:58] LABS: RBC Urine 1-5/HPF (0-5/HPF); WBC Urine 30-100/HPF (0-5/HPF)
[2022-06-24 13:59] LABS: Amorphous Sediment Urine 1+; Bacteria Urine Few (2-10); Culture Indicated Urine Specimen Cultured; Squamous Epithelial Cell Urine 0-1 /HPF (0-5/HPF)
== END ==
PROVIDERS: Family Provider Nurse Practitioner; PCP Nurse Practitioner; Visit Provider Nurse Practitioner
DX: R30.0 Dysuria (principal)
CPT/HCPCS: 81001; 87086

== ENCOUNTER → 2022-07-02 11:25 | Outpatient (CLI) | payer OTHER, MEDICAID, SELFPAY ==
--- NOTE | 2022-07-02 11:28 | DI.RAD.S_ITS ---
PROCEDURE: XR CERVICAL SPINE 4V OR 5V INDICATIONS: NECK PAIN TECHNIQUE: 5 views of the cervical spine acquired. COMPARISON: None. FINDINGS: Bones: No fractures or dislocations to the C7 level. Oblique images demonstrate no significant bony foraminal stenoses. Uncovertebral joint hypertrophy. Small osteophytes. Loss of intervertebral disc space height most pronounced at C6-C7. Soft tissues: No prevertebral soft tissue swelling. IMPRESSION: [id number] cervical spine degenerative change. Dictated by: Raymundo Pastor M.D. on 07/02/2022 at 12:43 Approved by: Raymundo Pastor M.D. on 07/02/2022 at 12:45
--- NOTE | 2022-07-02 11:28 | DI.RAD.S_ITS ---
PROCEDURE: XR CHEST 2V INDICATIONS: fever in immunocomprimised patient TECHNIQUE: 2 views of the chest were acquired. COMPARISON: None. FINDINGS: Surgical changes and devices: None. Lungs and pleura: Lungs are clear. No pleural effusions or pneumothorax. Mediastinum: Mediastinal contours are normal. Heart size is normal. Bones and chest wall: No suspicious bony abnormalities. Soft tissues appear unremarkable. IMPRESSION: No acute cardiopulmonary abnormality. Dictated by: Barrie Marcus M.D. on 07/02/2022 at 12:27 Approved by: Barrie Marcus M.D. on 07/02/2022 at 12:30
== END ==
PROVIDERS: Family Provider Nurse Practitioner; PCP Nurse Practitioner; Referring Provider Physical Medicine & Rehabilitation; Visit Provider Physical Medicine & Rehabilitation
DX: D84.9 Immunodeficiency, unspecified (principal); R50.9 Fever, unspecified; M47.812 Spondylosis without myelopathy or radiculopathy, cervical region; M54.2 Cervicalgia
CPT/HCPCS: 36415; 71046; 72050; 87040

== ENCOUNTER → 2022-07-29 16:00 | Outpatient (CLI) | payer OTHER, MEDICAID, SELFPAY ==
--- NOTE | 2022-07-29 16:02 | DI.ECHO.S_ITS ---
[facility] +---------+ : : [address] : [address] : : : : [id number] : : : : Phone: [phone]---------+ Echocardiogram Report + + :Name: BRITTON WILSON Study Date: 07/29/2022 Height: 66 in : :[facility] ReadingLocation: Weight: 250 lb : : Gender: Female BSA: 2.2 m2 : :: 1960 Age: 61 yrs BP: 155/88 mmHg: :Reason For Study: Hypertension : :Ordering Physician: MONICA, : :LESA Performed By: Surya Quijano : :Referring: LESA ANDERSON : + + Interpretation Summary The ejection fraction is estimated to be 55-60%. Diastolic parameters suggest probable normal left ventricular diastolic function and normal filling pressures. The right ventricle is normal in size and function. There is mild aortic regurgitation. Pulmonary artery pressures cannot be estimated because of the lack of a measurable TR jet velocity. Procedure: A two-dimensional transthoracic echocardiogram with color flow and Doppler was performed. The study quality was technically adequate. There is no prior echocardiogram noted for this patient. The patient was in normal sinus rhythm during the exam. Left Ventricle: The left ventricle is normal in size and wall thickness. Left ventricular systolic function is normal. The ejection fraction is estimated to be 55-60%. There are no focal wall motion abnormalities. Diastolic parameters suggest probable normal left ventricular diastolic function and normal filling pressures. Right Ventricle: The right ventricle is normal in size and function. Atria: Both atria are normal in size. The interatrial septum grossly appears intact with no obvious evidence for an atrial septal defect. Mitral Valve: The mitral valve is normal in structure and function. There is no mitral regurgitation noted. Aortic Valve: The aortic valve is trileaflet. There is no aortic valve stenosis. There is mild aortic regurgitation. Tricuspid Valve: The tricuspid valve is normal in structure and function. There is trace tricuspid regurgitation. Pulmonary artery pressures cannot be estimated because of the lack of a measurable TR jet velocity. Pulmonic Valve: The pulmonic valve is normal in structure and function. There is no pulmonic valvular regurgitation. Great Vessels: The aortic root is normal size. The dimensions of the ascending aorta are normal. The IVC is of normal diameter and collapses greater than 50% with a sniff. This suggests a low right atrial pressure of 3 mm Hg. Pericardium/ Pleura There is no pericardial effusion. There is no pleural effusion. MMode/2D Measurements & Calculations LVIDd: 4.6 cm LVOT diam: 2.1 cm LVIDs: 3.2 cm Ao root diam: 3.1 cm FS: 30.4 % asc Aorta Diam: 3.2 cm IVSd: 1.0 cm LVPWd: 1.0 cm LV murphy. diameter/BSA (cm/m^2): 2.1 LV sys. diameter/BSA (cm/m^2): 1.5 LA dimension: 3.4 cm RA long axis: 5.2 cm LA A2 area: 16.6 cm2 IVC diam: 1.5 cm LA A4 area: 17.8 cm2 LA length (vol): 5.4 cm LA vol: 46.4 ml LA vol index: 21.1 ml/m2 TAPSE_phl: 2.1 cm Doppler Measurements & Calculations Ao V2 max: 166.0 cm/sec LVOT Max Kumar: 129.0 cm/sec Ao V2 mean: 120.0 cm/sec LV V1 max P.7 mmHg Ao max P.0 mmHg LV V1 VTI: 26.9 cm Ao mean P.0 mmHg RAND(I,D): 2.9 cm2 Ao V2 VTI: 31.9 cm RAND(V,D): 2.7 cm2 sev ratio: 0.84 RAND indexed to BSA (cm^2/m^2): 1.3 AI P1/2t: 557.7 msec AI dec slope: 219.0 cm/sec2 MV E max kumar: 75.4 cm/sec SV(LVOT): 93.2 ml MV A max kumar: 88.7 cm/sec MV E/A: 0.85 Med Peak E' Kumar: 8.9 cm/sec E/E' med: 8.5 Lat Peak E' Kumar: 11.6 cm/sec E/E' lat: 6.5 E/e' average: 7.5 MV dec time: 0.30 sec AV P1/2t-pr_phl: 559.0 msec MV P1/2t-pr_phl: 87.0 msec AV VR_phl: 0.78 RAND(VTI)/BSA_phl: 1.3 Reading Physician:05:11 PM
== END ==
PROVIDERS: Family Provider Nurse Practitioner; PCP Nurse Practitioner; Referring Provider Nurse Practitioner; Visit Provider Nurse Practitioner
DX: I10 Essential (primary) hypertension (principal)
CPT/HCPCS: 93306

== ENCOUNTER → 2022-07-30 09:23 | Outpatient (CLI) | payer OTHER, MEDICAID, SELFPAY ==
[2022-07-30 12:23] LABS: COVID19 -Nasal RAPID Negative (Negative)
== END ==
PROVIDERS: Family Provider Nurse Practitioner; PCP Nurse Practitioner; Visit Provider Surgery
DX: Z01.812 Encounter for preprocedural laboratory examination (principal); Z20.822 Contact with and (suspected) exposure to COVID-19
CPT/HCPCS: 87635; C9803

== ENCOUNTER 2022-07-31 14:11 | Day surgery (SDC) | payer OTHER, MEDICAID, SELFPAY ==
[2022-07-31] MEDS: LACTATED RINGERS 1,000 ML 42 ML IV (14:30)
[2022-07-31 14:42] VITALS: BP 143/90; PULSE 93; RESP 16; TEMP 36.9; O2SAT 97; BMI 40.3
--- NOTE | 2022-07-31 15:05 | PM.HP.1 ---
History of Present Illness History of Present Illness Date Patient Seen: 07/31/22 Time Patient Seen: 14:45 Chief complaint: HIC Narrative: Ting is a 61-year-old woman who has never had a colonoscopy before. She is here for her colonoscopy today for colon cancer screening. No family history of colon cancer in any first-degree relatives Patient History Medical History Alcohol consumption of one to four drinks per week Benign familial tremor (~1989) Chronic back pain Depression with anxiety Facet arthropathy, lumbar Fibromyalgia Foot pain Herniated nucleus pulposus, L5-S1 Hypertension (~1995) Hypothyroidism (~1999) Immunocompromised state Insomnia Marijuana use Measles Mumps Obstructive lung disease Postmenopausal Raynaud disease Sjogrens syndrome Trigeminal neuralgia Vision disorder Surgical History Anesthesia History of knee surgery (~2015) History of tonsillectomy (~1962) Family & Social History Family History Father Suicide Mother Diabetes mellitus Arthritis Lymphoma Social History: household members spouse Tobacco & Substance use: Tobacco type e-cigarettes,cannabis/marijuana Smoking Status Never smoker alcohol intake former Substance Use Type marijuana Meds Home Medications and Allergies Home Medications Medication Instructions Recorded Confirmed Type cannabis inhalation 04/29/21 07/16/22 History folic acid 1 mg tablet 1 mg PO DAILY 04/29/21 07/31/22 History methotrexate sodium 2.5 mg tablet See Rx Instructions PO QWEEK 12/04/21 07/16/22 History nystatin 100,000 unit/gram topical 1 applic topical DAILY #30 grams 02/28/22 07/31/22 Rx powder acetaminophen 650 mg 1,300 mg PO Q12H PRN pain 06/24/22 07/31/22 History tablet,extended release hydroxychloroquine 200 mg tablet 200 mg PO BID 06/24/22 07/31/22 History varicella-zoster glycoE [id number] 0.5 ml IM ONCE #1 ea 06/24/22 07/16/22 Rx adj(PF) 50 mcg/0.5 mL IM susp, kit (Shingrix (PF)) Disabled Parking Permit See Rx Instructions .Route 06/25/22 07/16/22 Rx .COMPLEX #1 unit albuterol sulfate 90 mcg/actuation 2 puff inhalation Q6H PRN 06/26/22 07/31/22 Rx aerosol inhaler shortness of breath or wheezing #6.7 grams diclofenac sodium 1 % topical gel 4 g topical .QD #100 grams 06/26/22 07/31/22 Rx duloxetine 60 mg capsule,delayed 60 mg PO DAILY #90 caps 06/26/22 07/31/22 Rx release fluticasone propionate 100 See Rx Instructions .Route 06/26/22 07/31/22 Rx mcg/actuation blister powder for .COMPLEX #60 ea inhalation (Flovent Diskus) gabapentin 600 mg tablet See Rx Instructions .Route 06/26/22 07/31/22 Rx .COMPLEX #90 tabs levothyroxine 88 mcg tablet 88 mcg PO DAILY #90 tabs 06/26/22 07/31/22 Rx losartan 50 mg tablet See Rx Instructions .Route 06/26/22 07/16/22 Rx .COMPLEX #90 tabs omeprazole 20 mg capsule,delayed 20 mg PO DAILY #90 caps 06/26/22 07/31/22 Rx release conjugated estrogens 0.625 mg/gram 0.625 mg vaginal DAILY #30 grams 07/21/22 07/31/22 Rx vaginal cream Allergies Allergy/AdvReac Type Severity Reaction Status Date / Time tramadol AdvReac Mild FAST HEART Verified 07/31/22 14:29 BEAT plants Allergy Unknown Uncoded 07/31/22 14:29 Exam Vital Signs (past 8 hours): - 07/31/22 14:42 Temperature 98.4 F Pulse Rate 93 H Respiratory Rate 16 Blood Pressure 143/90 H Pulse Oximetry 97 Oxygen Delivery Method Room Air Oxygen Delivery Method Room Air Const General: healthy appearing Resp Effort & Inspection: normal respiratory effort Assessment & Plan Assessment and plan (1) Colon cancer screening: Status: Acute Plan 61-year-old woman here for colonoscopy for colon cancer screening. We did review the risks and benefits and she would like to proceed. Time Spent With Patient Critical Care time: I spent a total of [] minutes of critical care time on this patient's care today; this time is exclusive of procedural time.
[2022-07-31] MEDS: MIDAZOLAM 5 MG/5 ML VIAL 6 MG IV (15:22)
[2022-07-31] MEDS: fentaNYL 100 MCG/2 ML INJ 150 MCG IV (15:22)
--- NOTE | 2022-07-31 15:40 | PM.OP.COLON ---
Operative Date/Time/Diagnoses Date of procedure: 07/31/22 Time of procedure: 15:41 Pre-op diagnosis: Colon cancer screening Procedure & Clinicians Study performed: Colonoscopy Same procedure as scheduled: Yes Surgeon: Duane Martinez Procedure Notes Procedure in detail: Surgeon: Duane Martinez MD Procedure: The patient was brought to the endoscopy suite, placed in left lateral decubitus position. The patient was connected to monitoring devices. A time-out was performed. Sedation was administered. Once the patient was adequately sedated, a digital rectal exam was performed and was normal. The scope was then inserted and advanced to the cecum where the appendiceal orifice was identified and photographed. The scope was then slowly withdrawn over greater than 6 minutes. The mucosa was thoroughly inspected. No polyps were seen. There were as diverticulosis, predominantly in the sigmoid colon. The scope was retroflexed in the rectum. No abnormalities were noted. The scope was straightened and removed. The patient was awakened and brought to recovery. Versed: 6 mg Fentanyl: 150 mcg EBL: 0 Findings: Diverticulosis Scope withdrawal time: 10 Sedation minutes: 25 Post-procedure Recommendations: Colonoscopy in 10 years Disposition: PACU
[2022-07-31 15:43] VITALS: BP 120/71; PULSE 80; RESP 14; TEMP 37.1; O2SAT 99
[2022-07-31 15:48] VITALS: BP 136/73; PULSE 80; RESP 16; TEMP 37.1; O2SAT 99
[2022-07-31 15:53] VITALS: BP 134/72; PULSE 82; RESP 18; TEMP 36.9; O2SAT 96
[2022-07-31 16:02] VITALS: BP 127/72; PULSE 80; RESP 18; TEMP 36.6; O2SAT 96
== END 2022-07-31 16:06 | disposition home or self-care (01) ==
PROVIDERS: Family Provider Nurse Practitioner; PCP Nurse Practitioner; Referring Provider Surgery; Visit Provider Surgery
PROC: 0DJD8ZZ Inspection of Lower Intestinal Tract, Via Natural or Artificial Opening Endoscopic (ICD-10-PCS; CPT 45378; principal; 2022-07-31 15:15)
DX: Z12.11 Encounter for screening for malignant neoplasm of colon (principal); K57.30 Diverticulosis of large intestine without perforation or abscess without bleeding
CPT/HCPCS: 45378; 99152; 99153; J2250; J3010

== ENCOUNTER 2022-10-02 08:05 | Outpatient (CLI) | payer OTHER, MEDICAID, SELFPAY ==
[2022-10-02] VITALS (10 sets, daily range): BP systolic 119–155; BP diastolic 60–106; PULSE 75–86; RESP 11–22; TEMP 36.8; O2SAT 94–100
--- NOTE | 2022-10-02 08:07 | DI.RAD.S_ITS ---
PROCEDURE: PAIN L INTERLAMINAR/CAUDAL INJ INDICATIONS: Spondylosis COMPARISON: [facility], XA, PAIN L INTERLAMINAR/CAUDAL INJ, 09/17/2021, 8:33. FINDINGS: Fluoroscopic spot filming was performed to verify placement of a spinal needle at the L5-S1 level, as labeled on the films. Appropriate location of the needle tip was confirmed by injection of iodinated contrast. IMPRESSION: No significant intraprocedural abnormality. Dictated by: Cheng Guerra M.D. on 10/02/2022 at 13:59 Approved by: Cheng Guerra M.D. on 10/02/2022 at 13:59
[2022-10-02] MEDS: MIDAZOLAM 2 MG/2 ML VIAL 4 MG IV (09:14)
[2022-10-02] MEDS: BETAMETHASONE 30 MG/5 ML MDV 6 MG INJ (09:15)
[2022-10-02] MEDS: BUPIVACAINE 0.25% (PF) VIAL 5 ML SUBCUT (09:15)
[2022-10-02] MEDS: IOPAMIDOL 15 ML VIAL 3 ML INJ (09:15)
[2022-10-02] MEDS: DEXAMETHASONE 10 MG/ML VIAL 20 MG INJ (09:16)
--- NOTE | 2022-10-02 09:34 | P.PCN_ITS ---
Date/Time/Diagnoses Date of procedure: 10/02/22 Time of procedure: 09:35 Pre-procedure diagnosis: 1. HNP WITH RADICULAR FEATURES, 2. MULTILEVEL CENTRAL STENOSIS, Post-procedure diagnosis: same Procedure Notes Procedure: 1. FLUOROSCOPICALLY GUIDED CONTRAST CONTROLLED INTERLAMINAR EPIDURAL STEROID INJECTION - L5/S1 Indications: Monika is referred by JAMAR Park for treatment of Bilateral Foraminal Stenosis L>R LE symptoms. Physician: Kennedy Patel Total Fluoroscopy time (seconds): 12 Total sedation minutes: 19 Complications: none Procedure in detail & Post-procedure care: FINDINGS Multilevel Central Spinal Stenosis with Nerve Root Compression DESCRIPTION OF PROCEDURE Fluoroscopically guided, contrast-controlled L5/S1 translaminar epidural steroid injection. Following review of allergy and review of potential side effects and complications, including, but not necessarily limited to, infection, allergic reaction, local tissue breakdown, temporary as well as permanent nerve injury, paralysis, stroke and possible , the patient indicated that the patient understood and agreed to proceed. An informed consent document was signed by the patient, witnessed by a nurse, and placed in the patient's chart. Additionally, other treatment options including modalities, medications, and physical therapy were reviewed with the patient. After review of previous anaesthesic history and IV conscious sedation the patient was deemed safe to proceed with today?s procedure with IV conscious sedation as ASA class II designation. Safety time-out was performed to confirm patient ID, procedure to be performed and site of procedure. IV sedation was accomplished with a combination of 4mg of Versed administered by the RN after DO order, titrated to patient comfort during the course of the procedure while the patient remained responsive to all verbal commands. In the prone position, following sterile prep and drape of the lumbar region, the L5/S1 translaminar space was identified fluoroscopically. The skin was anesthetized via a 25-gauge, 1.5-inch needle with 1% lidocaine solution. At this point, a 22-gauge short bevel spinal needle was atraumatically introduced and advanced under fluoroscopic guidance into the region of the L5/S1 translaminar space. Depth was confirmed on lateral view. Radiological data, including multiple fluoroscopic views of the lumbar spine, reveal a spinal needle at the L5/S1 translaminar space. Lateral views then show placement of the needle in the epidural space. Subsequent views show contrast material flowing superiorly and inferiorly in the epidural space. No vascular or intrathecal uptake is observed. At this point, using loss of resistance technique with saline and air, the epidural space was entered. This was confirmed following negative aspiration with injection of approximately 1.5cc of Isovue 200, showing excellent epidural flow without vascular or intrathecal uptake. At this point, 1 cc of 1% lidoc rosalinda solution combined with 3cc or 20mg of dexamethasone and 6mg of betamethasone was injected without incident. The patent tolerated the procedure without signs of symptoms of complications prior to transfer to the recovery area for further monitoring. The patient was then transferred to the recovery area where they were observed for an appropriate period of time after the injection. The patient reported a VAS score of 6 prior to the procedure and a post-procedure VAS of 0. POST OP INSTRUCTIONS The patient was provided a Pain Log to continue to record their response to the target-specific procedure prior to follow-up visit with their referring physician. Additionally, specific post-injection care instructions and a contact number to our office were provided if concerns arise regarding possible complications associated with the procedure are suspected.
== END 2022-10-02 09:55 | disposition home or self-care (01) ==
PROVIDERS: Family Provider Nurse Practitioner; PCP Nurse Practitioner; Referring Provider Physical Medicine & Rehabilitation; Visit Provider Physical Medicine & Rehabilitation
DX: M51.17 Intervertebral disc disorders with radiculopathy, lumbosacral region (principal); M48.07 Spinal stenosis, lumbosacral region
CPT/HCPCS: 62323; 99152; J0702; J1100; J2250; J3490

== ENCOUNTER → 2022-10-03 13:02 | Outpatient (CLI) | payer OTHER, MEDICAID, SELFPAY ==
[2022-10-03 14:29] LABS: Add Manual Diff / Slide Review NO; Basophils Absolute Auto 0 /uL (0-100); Basophils Percent Auto 0.2 % (0-2); Eosinophils Absolute Auto 0 /uL (0-450); Hemoglobin 12.8 g/dL (12.0-16.0); Lymphocytes Absolute Auto 1100 /uL (1100-4500); Lymphocytes Percent Auto 10.6 % (25-40); Mean Corpuscular HGB Conc 34.5 % (30-36); Mean Corpuscular Volume 95.6 fL (80-100); Monocytes Absolute Auto 800 /uL (0-900); Monocytes Percent Auto 7.6 % (3-14); Neutrophils Absolute Auto 8700 /uL (1500-7000); Neutrophils Percent Auto 81.6 % (50-75); Platelet Count 286 X10^3/uL (150-400); Red Blood Cell Count 3.87 X10^6/uL (4.0-5.2); Red Cell Distribution Width 13.9 % (11.6-14.8); White Blood Cell Count 10.6 X10^3/uL (4.5-11.0)
[2022-10-03 15:31] LABS: Alanine Aminotransferase 16 IU/L (<35); Albumin 4.1 g/dL (3.5-5.0); Albumin Globulin Ratio 1.2 (1.0-2.8); Alkaline Phosphatase 83 U/L (38-126); Aspartate Aminotransferase 25 IU/L (14-36); Bilirubin Total 0.3 mg/dL (0.2-1.3); Blood Urea Nitrogen 16 mg/dL (7-17); Calcium 9.1 mg/dL (8.4-10.2); Carbon Dioxide 25 mmol/L (22-32); Chloride 108 mmol/L (98-107); Estimated Glomerular Filt Rate > 60 mL/min (>60); Globulin 3.5 g/dL (1.7-4.1); Glucose 132 mg/dL (80-110); HEMOLYSIS 15 (0-50); Potassium 3.7 mmol/L (3.4-5.1); Sodium 141 mmol/L (137-145); Total Protein 7.6 g/dL (6.3-8.2)
== END ==
PROVIDERS: Family Provider Nurse Practitioner; PCP Nurse Practitioner; Referring Provider Internal Medicine Rheumatology; Visit Provider Internal Medicine Rheumatology
DX: M05.79 Rheumatoid arthritis with rheumatoid factor of multiple sites without organ or systems involvement (principal); M35.01 Sjogren syndrome with keratoconjunctivitis
CPT/HCPCS: 36415; 80053; 85025

== ENCOUNTER → 2022-12-31 16:35 | Outpatient (CLI) | payer OTHER, SELFPAY ==
[2022-12-31 17:45] LABS: Add Manual Diff / Slide Review NO; Basophils Absolute Auto 100 /uL (0-100); Eosinophils Absolute Auto 300 /uL (0-450); Eosinophils Percent Auto 6.1 % (2-4); Hemoglobin 12.8 g/dL (12.0-16.0); Lymphocytes Absolute Auto 2000 /uL (1100-4500); Lymphocytes Percent Auto 39.4 % (25-40); Mean Corpuscular HGB Conc 33.7 % (30-36); Mean Corpuscular Hemoglobin 32.7 PG (26-34); Mean Corpuscular Volume 96.9 fL (80-100); Monocytes Absolute Auto 400 /uL (0-900); Monocytes Percent Auto 7.5 % (3-14); Neutrophils Absolute Auto 2300 /uL (1500-7000); Platelet Count 229 X10^3/uL (150-400); Red Blood Cell Count 3.93 X10^6/uL (4.0-5.2)
[2022-12-31 18:23] LABS: Alanine Aminotransferase 11 IU/L (<35); Albumin 3.9 g/dL (3.5-5.0); Albumin Globulin Ratio 1.3 (1.0-2.8); Alkaline Phosphatase 75 U/L (38-126); Aspartate Aminotransferase 32 IU/L (14-36); BUN Creatinine Ratio 21.1 (6-22); Bilirubin Total 0.4 mg/dL (0.2-1.3); Blood Urea Nitrogen 12 mg/dL (7-17); Calcium 8.5 mg/dL (8.4-10.2); Carbon Dioxide 28 mmol/L (22-32); Chloride 106 mmol/L (98-107); Estimated Glomerular Filt Rate > 60 mL/min (>60); Glucose 98 mg/dL (80-110); HEMOLYSIS < 15 (0-50); Potassium 4.2 mmol/L (3.4-5.1); Sodium 141 mmol/L (137-145); Total Protein 6.9 g/dL (6.3-8.2)
== END ==
PROVIDERS: Family Provider Nurse Practitioner; PCP Nurse Practitioner; Referring Provider Internal Medicine Rheumatology; Visit Provider Internal Medicine Rheumatology
DX: M05.79 Rheumatoid arthritis with rheumatoid factor of multiple sites without organ or systems involvement (principal); M35.01 Sjogren syndrome with keratoconjunctivitis
CPT/HCPCS: 36415; 80053; 85025

== ENCOUNTER 2023-03-03 03:05 | Emergency (ER) | payer OTHER, SELFPAY ==
[2023-03-03] VITALS (8 sets, daily range): BP systolic 135–175; BP diastolic 69–85; PULSE 73–97; RESP 17–42; TEMP 36.9; O2SAT 92–100; BMI 41.5
--- NOTE | 2023-03-03 03:11 | ED.GENADULT ---
HPI - General Adult General Chief complaint: Shortness of Breath/Dyspnea Stated complaint: SOB- hx of asthma Time Seen by Provider: 03/03/23 03:11 Source: patient and EMS Mode of arrival: EMS Limitations: no limitations History of Present Illness HPI narrative: Patient is a 62-year-old female. She does have a history of asthma but states she is not had any asthma issues for some time. She states she was woken up from sleep with problems breathing. States it felt like she could not get any air in. She was trying to use her inhaler at home but was not working. EMS was contacted. Upon their arrival they found her to be in moderate respiratory distress. She did receive a DuoNeb prior to arrival. Her oxygen saturations were never less than 100%. Patient states that after the DuoNeb she is feeling somewhat better. She denies any chest pain. She is having quite a bit of coughing and congestion. Related Data Home Medications Medication Instructions Recorded Confirmed cannabis inhalation 04/29/21 12/17/22 folic acid 1 mg tablet 1 mg PO DAILY 04/29/21 12/17/22 methotrexate sodium 2.5 mg tablet See Rx Instructions PO QWEEK 12/04/21 12/17/22 acetaminophen 650 mg 1,300 mg PO Q12H PRN pain 06/24/22 12/17/22 tablet,extended release hydroxychloroquine 200 mg tablet 200 mg PO BID 06/24/22 12/17/22 ibuprofen 200 mg tablet 800 mg PO TID Pain 09/01/22 12/17/22 Previous Rx's Medication Instructions Recorded nystatin 100,000 unit/gram topical 1 applic topical DAILY #30 grams 02/28/22 powder varicella-zoster glycoE [id number] 0.5 ml IM ONCE #1 ea 06/24/22 adj(PF) 50 mcg/0.5 mL IM susp, kit (Shingrix (PF)) Disabled Parking Permit See Rx Instructions .Route 06/25/22 .COMPLEX #1 unit albuterol sulfate 90 mcg/actuation 2 puff inhalation Q6H PRN 06/26/22 aerosol inhaler shortness of breath or wheezing #6.7 grams diclofenac sodium 1 % topical gel 4 g topical .QD #100 grams 06/26/22 fluticasone propionate 100 See Rx Instructions .Route 06/26/22 mcg/actuation blister powder for .COMPLEX #60 ea inhalation (Flovent Diskus) gabapentin 600 mg tablet See Rx Instructions .Route 06/26/22 .COMPLEX #90 tabs levothyroxine 88 mcg tablet 88 mcg PO DAILY #90 tabs 06/26/22 losartan 50 mg tablet See Rx Instructions .Route 06/26/22 .COMPLEX #90 tabs omeprazole 20 mg capsule,delayed 20 mg PO DAILY #90 caps 06/26/22 release clonazepam 1 mg tablet 1 mg PO BID PRN anxiety, pain, 09/18/22 insomnia #60 tabs estradiol 10 mcg vaginal tablet 10 mcg vaginal DAILY 2 weeks #36 09/18/22 tabs duloxetine 60 mg capsule,delayed 60 mg PO BID #180 caps 10/15/22 release promethazine 25 mg tablet 25 mg PO Q4-6H PRN nausea and 01/14/23 vomiting #30 tabs prednisone 20 mg tablet 20 mg PO DAILY 2 days #2 tabs 03/03/23 Allergies Allergy/AdvReac Type Severity Reaction Status Date / Time tramadol AdvReac Mild FAST HEART Verified 09/01/22 08:06 BEAT plants Allergy Unknown Uncoded 09/01/22 08:06 Review of Systems Review of Systems ROS Unobtainable: All systems reviewed & are unremarkable except as noted in HPI and below Patient History Medical History Alcohol consumption of one to four drinks per week Anxiety Benign familial tremor (~1989) Chronic back pain Depression with anxiety Facet arthropathy, lumbar Fibromyalgia Foot pain Herniated nucleus pulposus, L5-S1 Hypertension (~1995) Hypothyroidism (~1999) Immunocompromised state Insomnia Marijuana use Measles Mumps Obstructive lung disease Postmenopausal Raynaud disease Rheumatoid arthritis Sjogrens syndrome Trigeminal neuralgia Vision disorder Surgical History Anesthesia History of knee surgery (~2015) History of tonsillectomy (~1962) Family History Father Suicide Mother Diabetes mellitus Arthritis Lymphoma Social History household members: spouse Smoking Status: Never smoker alcohol intake: former Smoking Status: Never smoker Substance Use Type: marijuana Exam Initial Vital Signs Initial Vital Signs: Vital Signs Temperature 98.5 F 03/03/23 03:14 Pulse Rate 95 H 03/03/23 03:14 Respiratory Rate 24 03/03/23 03:14 Blood Pressure 175/85 H 03/03/23 03:14 Pulse Oximetry 100 03/03/23 03:14 Oxygen Delivery Method Room Air 03/03/23 03:14 Const General: cooperative, comfortable and No ill appearing HENMT Head: normal to inspection and normocephalic Resp Effort & Inspection: not labored and tachypneic Auscultation: rhonchi and wheezes Cardio Rate: regular rate Rhythm: regular rhythm Skin General: no rashes or lesions noted Neuro General: patient alert, patient awake and moves all extremities Extrem General: No edema Course Orders Ordered: ED Orders 03/03/23 03:13 XR chest 1V Stat EKG-12 Lead Stat RT Consult Eval and Treat Now 03/03/23 03:40 Covid-19 + FLU A/B + RSV - PCR Stat 03/03/23 03:48 Complete Blood Count AUTO DIFF Stat Comprehensive Metabolic Panel Stat Lipase Stat NT-proBNP (BNP-Adult 18+) Stat Troponin & CK Cardiac Panel Stat Discontinued Medications Albuterol/Ipratropium (Albuterol/Ipratropium 3 Ml Ampul) 3 ml INH NOW ONE Stop: 03/03/23 03:50 Last Admin: 03/03/23 03:54 Dose: 3 ml Documented By: SHANTEL Methylprednisolone (Methylprednisolone 125 Mg/2 Ml Vial) 125 mg IV NOW ONE Stop: 03/03/23 03:13 Last Admin: 03/03/23 03:42 Dose: 125 mg Documented By: SB Vital Signs Vital signs: Vital Signs - 8 hr 03/03/23 03:14 03/03/23 03:54 03/03/23 03:21 Temperature 98.5 F Pulse Rate 95 H 83 73 Respiratory Rate 24 20 20 Blood Pressure 175/85 H Pulse Oximetry 100 99 98 Oxygen Delivery Method Room Air Room Air Oxygen Flow Rate 0 Fraction of Inspired Oxygen 21 03/03/23 03:30 03/03/23 03:31 03/03/23 03:31 Temperature Pulse Rate 81 87 Respiratory Rate 36 H 42 H Blood Pressure 148/85 H Pulse Oximetry 97 96 Oxygen Delivery Method Oxygen Flow Rate Fraction of Inspired Oxygen 03/03/23 04:00 03/03/23 04:00 Temperature Pulse Rate 82 Respiratory Rate 20 Blood Pressure 135/69 Pulse Oximetry 99 Oxygen Delivery Method Oxygen Flow Rate Fraction of Inspired Oxygen Medical Decision Making Lab Data Lab results reviewed: Yes I reviewed the patient's lab results. 03/03/23 03:48 03/03/23 03:48 Labs: Lab Results 03/03/23 03/03/23 03/03/23 Range/Units 03:40 03:48 03:48 WBC 4.2 L (4.5-11.0) X10^3/uL RBC 4.06 (4.0-5.2) X10^6/uL Hgb 12.9 (12.0-16.0) g/dL Hct 38.4 (36-46) % MCV 94.5 (80-100) fL MCH 31.9 (26-34) PG MCHC 33.7 (30-36) % RDW 13.4 (11.6-14.8) % Plt Count 191 (150-400) X10^3/uL Neut % (Auto) 43.7 L (50-75) % Lymph % (Auto) 40.1 H (25-40) % [place] % (Auto) 10.3 (3-14) % Eos % (Auto) 5.4 H (2-4) % Baso % (Auto) 0.5 (0-2) % Neut # (Auto) 1800 (1104-3753) /uL Lymph # (Auto) 1700 (0628-3481) /uL [place] # (Auto) 400 (0-900) /uL Eos # (Auto) 200 (0-450) /uL Baso # (Auto) 0 (0-100) /uL Sodium 140 (137-145) mmol/L Potassium 3.2 L (3.4-5.1) mmol/L Chloride 104 (98-107) mmol/L Carbon Dioxide 29 (22-32) mmol/L BUN 10 (7-17) mg/dL Creatinine 0.55 (0.52-1.04) mg/dL Estimated GFR > 60 (>60) mL/min BUN/Creatinine Ratio 18.2 (6-22) Glucose 107 (80-110) mg/dL Calcium 8.5 (8.4-10.2) mg/dL Total Bilirubin 0.4 (0.2-1.3) mg/dL AST 22 (14-36) IU/L ALT 11 (<35) IU/L Alkaline Phosphatase 67 (38-126) U/L Total Creatine Kinase 49 (30-135) U/L CK-MB (CK-2) TNP CK-MB (CK-2) Rel Index TNP Troponin I < 0.012 (0.01-0.034) ng/mL NT-Pro-B Natriuret Pep 36 (<125) pg/mL Total Protein 6.7 (6.3-8.2) g/dL Albumin 3.8 (3.5-5.0) g/dL Globulin 2.9 (1.7-4.1) g/dL Albumin/Globulin Ratio 1.3 (1.0-2.8) Lipase 57 (23-300) U/L SARS-CoV-2 (PCR) Negative (Negative) Influenza A (RT-PCR) Flu a negative (NEGATIVE) Influenza B (RT-PCR) Flu b negative (NEGATIVE) RSV (PCR) Negative (Negative) Imaging Data Chest x-ray: Radiologist's Impression: No acute findings ECG Data Attestation: I personally reviewed and interpreted this ECG as follows: Interpretation: Sinus rhythm Ventricular rate is 78 Normal axis Normal QRS Normal QTC No ST T wave changes MDM Narrative Medical decision making narrative: Patient did have some wheezing upon arrival. After subsequent nebulizers her wheezing has resolved. States she does feel better. Chest x-ray is negative. EKGs unremarkable. Labs are unremarkable. Low suspicion for cardiac etiology. No indication for antibiotics as I suspect any infection is viral infection. She does have inhalers at home that she can use. She was given a dose of steroids here. Will discharge home with prescription for steroids for the next couple days. She was given return precautions. She expressed understanding and agreement. Discharge Plan Departure Patient Disposition: Home Clinical Impression: Asthma attack Instructions: Asthma -- Adult Activity Restrictions/Additional Instructions: I recommend that you continue to take all of your medications as directed. A prescription for steroids which should be started tomorrow was sent to the pharmacy of your choice. Please take them as directed. Use your inhaler at home as needed. Return to the emergency department for new symptoms. Prescriptions: New prednisone 20 mg tablet 20 mg PO DAILY 2 Days Qty: 2 0RF No Action nystatin 100,000 unit/gram powder 1 applic topical DAILY Qty: 30 1RF Disabled Parking Permit See Rx Instructions .ROUTE .COMPLEX Qty: 1 0RF Rx Instructions: I find this patient to be medically disabled and qualify for disabled parking as indicated and signed on the accompanying disabled parking application for individuals. albuterol sulfate 90 mcg/actuation HFA aerosol inhaler 2 puff inhalation Q6H PRN (Reason: shortness of breath or wheezing) Qty: 6.7 3RF Rx Instructions: 1-2 puffs every 6 hours as needed sob or wheezing diclofenac sodium 1 % gel 4 g topical .QD Qty: 100 8RF Rx Instructions: apply to single elbow, wrist or hand; for hand includes palm/fingers/back of hand Flovent Diskus 100 mcg/actuation blister with device See Rx Instructions .ROUTE .COMPLEX Qty: 60 11RF Dose Instruction: INHALE ONE PUFF BY MOUTH TWICE DAILY FOR BREATHING SYMPTOMS Rx Instructions: INHALE ONE PUFF BY MOUTH TWICE DAILY FOR BREATHING SYMPTOMS gabapentin 600 mg tablet See Rx Instructions .ROUTE .COMPLEX Qty: 90 3RF Dose Instruction: take one tablet by mouth three times daily. Rx Instructions: take one tablet by mouth three times daily. levothyroxine 88 mcg tablet 88 mcg PO DAILY Qty: 90 3RF Rx Instructions: Take 1 tab by mouth on an empty stomach daily 30 minutes prior to eating losartan 50 mg tablet See Rx Instructions .ROUTE .COMPLEX Qty: 90 3RF Dose Instruction: TAKE ONE TABLET BY MOUTH EVERY IN THE EVENING FOR HYPERTENSION Rx Instructions: TAKE ONE TABLET BY MOUTH EVERY IN THE EVENING FOR HYPERTENSION omeprazole 20 mg capsule,delayed release(DR/EC) 20 mg PO DAILY Qty: 90 3RF Rx Instructions: Take 1 capsule daily for GERD promethazine 25 mg tablet 25 mg PO Q4-6H PRN (Reason: nausea and vomiting) Qty: 30 3RF methotrexate sodium 2.5 mg tablet See Rx Instructions PO QWEEK Rx Instructions: 4 tablets in the am and 4 tablets in the evening once weekly PO every week; clonazepam 1 mg tablet 1 mg PO BID PRN (Reason: anxiety, pain, insomnia) Qty: 60 3RF Rx Instructions: Take 1 tab up to twice daily for pain, anxiety, insomnia estradiol 10 mcg tablet 10 mcg vaginal DAILY 14 Days Qty: 36 3RF Rx Instructions: Insert 3x/week vaginally duloxetine 60 mg capsule,delayed release(DR/EC) 60 mg PO BID Qty: 180 3RF Rx Instructions: Take 1 tab by mouth twice daily for depression. folic acid 1 mg tablet 1 mg PO DAILY cannabis inhalation Rx Instructions: vap daily acetaminophen 650 mg tablet extended release 1,300 mg PO Q12H PRN (Reason: pain) Shingrix (PF) 50 mcg/0.5 mL suspension for reconstitution 0.5 ml IM ONCE Qty: 1 0RF Rx Instructions: as a single dose hydroxychloroquine 200 mg tablet 200 mg PO BID Hold Instructions: x10 days while on Levofloxacin ibuprofen 200 mg tablet 800 mg PO TID Referrals: Neha Park ARNP [Primary Care Provider] - Stand Alone Forms: Patient Portal/API
--- NOTE | 2023-03-03 03:13 | DI.RAD.S_ITS ---
PROCEDURE: XR CHEST 1V INDICATIONS: Shortness of breath TECHNIQUE: One view of the chest was acquired. COMPARISON: [facility], , XR CHEST 1V, 10/22/2020, 16:12. FINDINGS: Surgical changes and devices: None. Lungs and pleura: Lungs are clear. No pleural effusions or pneumothorax. Mediastinum: Mediastinal contours appear normal. Heart size is normal. Bones and chest wall: No suspicious bony lesions. Overlying soft tissues appear unremarkable. IMPRESSION: No acute cardiopulmonary disease. No significant discrepancy with the [facility] shifter radiology preliminary report. Dictated by: Jaguar Jeff M.D. on 03/03/2023 at 8:51 Approved by: Jaguar Jeff M.D. on 03/03/2023 at 8:51
[2023-03-03] MEDS: methylPREDNISolone 125 MG/2 ML VIAL IV (03:42)
[2023-03-03] MEDS: ALBUTEROL/IPRATROPIUM 3 ML AMPUL INH (03:54)
[2023-03-03 03:57] LABS: Add Manual Diff / Slide Review NO; Basophils Absolute Auto 0 /uL (0-100); Basophils Percent Auto 0.5 % (0-2); Eosinophils Absolute Auto 200 /uL (0-450); Eosinophils Percent Auto 5.4 % (2-4); Hematocrit 38.4 % (36-46); Hemoglobin 12.9 g/dL (12.0-16.0); Lymphocytes Absolute Auto 1700 /uL (1100-4500); Lymphocytes Percent Auto 40.1 % (25-40); Mean Corpuscular HGB Conc 33.7 % (30-36); Mean Corpuscular Hemoglobin 31.9 PG (26-34); Mean Corpuscular Volume 94.5 fL (80-100); Monocytes Absolute Auto 400 /uL (0-900); Monocytes Percent Auto 10.3 % (3-14); Neutrophils Absolute Auto 1800 /uL (1500-7000); Neutrophils Percent Auto 43.7 % (50-75); Platelet Count 191 X10^3/uL (150-400); Red Blood Cell Count 4.06 X10^6/uL (4.0-5.2); Red Cell Distribution Width 13.4 % (11.6-14.8); White Blood Cell Count 4.2 X10^3/uL (4.5-11.0)
[2023-03-03 04:21] LABS: COVID-19 CEPHEID 4-PLEX PCR Negative (Negative); Influenza A - CEPHEID Flu A NEGATIVE (NEGATIVE); Influenza B - CEPHEID Flu B NEGATIVE (NEGATIVE); Respiratory Syncytial Virus Negative (Negative)
[2023-03-03 04:27] LABS: Alanine Aminotransferase 11 IU/L (<35); Albumin 3.8 g/dL (3.5-5.0); Albumin Globulin Ratio 1.3 (1.0-2.8); Alkaline Phosphatase 67 U/L (38-126); Aspartate Aminotransferase 22 IU/L (14-36); BUN Creatinine Ratio 18.2 (6-22); Bilirubin Total 0.4 mg/dL (0.2-1.3); Blood Urea Nitrogen 10 mg/dL (7-17); Calcium 8.5 mg/dL (8.4-10.2); Carbon Dioxide 29 mmol/L (22-32); Chloride 104 mmol/L (98-107); Creatine Kinase 49 U/L (30-135); Estimated Glomerular Filt Rate > 60 mL/min (>60); Globulin 2.9 g/dL (1.7-4.1); Glucose 107 mg/dL (80-110); HEMOLYSIS 17 (0-50); Lipase 57 U/L (23-300); Potassium 3.2 mmol/L (3.4-5.1); Sodium 140 mmol/L (137-145); Total Protein 6.7 g/dL (6.3-8.2)
[2023-03-03 04:39] LABS: NT-proBNP (BNP-Adult 18+) 36 pg/mL (<125); Troponin I < 0.012 ng/mL (0.01-0.034)
== END 2023-03-03 05:14 | disposition home or self-care (01) ==
PROVIDERS: Emergency Provider Emergency Medicine; Family Provider Nurse Practitioner; PCP Nurse Practitioner
DX: J45.901 Unspecified asthma with (acute) exacerbation (principal); Z20.822 Contact with and (suspected) exposure to COVID-19
CPT/HCPCS: 0241U; 71045; 80053; 82550; 83690; 83880; 84484; 85025; 93005; 94640; 96374; 99284; J2930

== ENCOUNTER → 2023-03-28 09:44 | Outpatient (CLI) | payer OTHER, SELFPAY | PROVIDERS: Family Provider Nurse Practitioner; PCP Nurse Practitioner; Visit Provider Student in an Organized Health Care Education/Training Program | DX: N39.0 Urinary tract infection, site not specified (principal) | CPT/HCPCS: 87086 ==

== ENCOUNTER → 2023-03-30 13:16 | Outpatient (CLI) | payer OTHER, SELFPAY ==
[2023-03-30 14:09] LABS: Add Manual Diff / Slide Review NO; Basophils Absolute Auto 0 /uL (0-100); Basophils Percent Auto 0.7 % (0-2); Eosinophils Absolute Auto 200 /uL (0-450); Eosinophils Percent Auto 4.8 % (2-4); Hemoglobin 13.3 g/dL (12.0-16.0); Lymphocytes Absolute Auto 1700 /uL (1100-4500); Lymphocytes Percent Auto 34.9 % (25-40); Mean Corpuscular Hemoglobin 32.2 PG (26-34); Mean Corpuscular Volume 94.7 fL (80-100); Monocytes Absolute Auto 400 /uL (0-900); Monocytes Percent Auto 8.1 % (3-14); Neutrophils Absolute Auto 2500 /uL (1500-7000); Neutrophils Percent Auto 51.5 % (50-75); Platelet Count 259 X10^3/uL (150-400); Red Blood Cell Count 4.12 X10^6/uL (4.0-5.2); Red Cell Distribution Width 13.4 % (11.6-14.8); White Blood Cell Count 4.8 X10^3/uL (4.5-11.0)
[2023-03-30 14:24] LABS: Alanine Aminotransferase 11 IU/L (<35); Albumin Globulin Ratio 1.3 (1.0-2.8); Alkaline Phosphatase 83 U/L (38-126); Aspartate Aminotransferase 25 IU/L (14-36); BUN Creatinine Ratio 22.4 (6-22); Bilirubin Total 0.5 mg/dL (0.2-1.3); Blood Urea Nitrogen 13 mg/dL (7-17); Calcium 9.1 mg/dL (8.4-10.2); Carbon Dioxide 26 mmol/L (22-32); Chloride 104 mmol/L (98-107); Estimated Glomerular Filt Rate > 60 mL/min (>60); Glucose 94 mg/dL (80-110); HEMOLYSIS < 15 (0-50); Potassium 4.3 mmol/L (3.4-5.1); Sodium 138 mmol/L (137-145)
== END ==
PROVIDERS: Family Provider Nurse Practitioner; PCP Nurse Practitioner; Referring Provider Internal Medicine Rheumatology; Visit Provider Internal Medicine Rheumatology
DX: M05.79 Rheumatoid arthritis with rheumatoid factor of multiple sites without organ or systems involvement (principal); M35.01 Sjogren syndrome with keratoconjunctivitis
CPT/HCPCS: 36415; 80053; 85025

== ENCOUNTER → 2023-04-01 09:51 | Outpatient (CLI) | payer OTHER, SELFPAY | PROVIDERS: Family Provider Nurse Practitioner; PCP Nurse Practitioner; Visit Provider Nurse Practitioner Family | DX: N89.8 Other specified noninflammatory disorders of vagina (principal); R32 Unspecified urinary incontinence | CPT/HCPCS: 87086; 87210 ==

== ENCOUNTER → 2023-05-13 08:54 | Outpatient (CLI) | payer OTHER, SELFPAY ==
--- NOTE | 2023-05-13 | DI.MG.S_ITS ---
BILATERAL DIGITAL SCREENING MAMMOGRAM 3D/2D WITH CAD: 05/13/2023 CLINICAL: Routine screening. Comparison is made to exams dated: 04/24/2022 mammogram, 04/19/2021 mammogram, 05/14/2019 mammogram, and 05/27/2017 mammogram - [facility]. Both breasts are almost entirely fatty (category a/<25% glandular tissue). Current study was also evaluated with a Computer Aided Detection (CAD) system. No significant masses, calcifications, or other findings are seen in either breast. There has been no significant interval change. IMPRESSION: NEGATIVE There is no mammographic evidence of malignancy. A 1 year screening mammogram is recommended. Based on the Tyrer Cuzick model (a risk assessment model) the patient's lifetime risk is 5.0% and her 10 year risk is 2.1%. According to the ACR, ACS, and NCCN guidelines, an annual breast MRI exam along with mammogram is recommended if the patient's lifetime risk is 20% or greater. This exam was interpreted at Station ID: [id number]. NOTE: For mammograms, a report in lay terms will be sent to the patient. Approximately 15% of breast malignancies will not be visualized mammographically. In the management of a palpable breast mass, a negative mammogram must not discourage biopsy of a clinically suspicious lesion. Electronically Signed By: Raymundo yoo/baltazar:05/13/2023 14:43:12 letter sent: Normal Exam ACR BI-RADS Category 1: Negative [id number]
== END ==
PROVIDERS: Family Provider Nurse Practitioner; PCP Nurse Practitioner; Referring Provider Nurse Practitioner; Visit Provider Nurse Practitioner
DX: Z12.31 Encounter for screening mammogram for malignant neoplasm of breast (principal)
CPT/HCPCS: 77063; 77067

== ENCOUNTER → 2023-06-10 12:30 | Outpatient (CLI) | payer OTHER, SELFPAY ==
[2023-06-10 13:37] LABS: Alanine Aminotransferase 11 IU/L (<35); Albumin Globulin Ratio 1.4 (1.0-2.8); Alkaline Phosphatase 71 U/L (38-126); Aspartate Aminotransferase 26 IU/L (14-36); BUN Creatinine Ratio 21.3 (6-22); Bilirubin Total 0.6 mg/dL (0.2-1.3); Blood Urea Nitrogen 16 mg/dL (7-17); Calcium 8.6 mg/dL (8.4-10.2); Carbon Dioxide 27 mmol/L (22-32); Chloride 102 mmol/L (98-107); Estimated Glomerular Filt Rate > 60 mL/min (>60); Globulin 2.9 g/dL (1.7-4.1); Glucose 103 mg/dL (80-110); HEMOLYSIS < 15 (0-50); Potassium 4.2 mmol/L (3.4-5.1); Sodium 136 mmol/L (137-145); Total Protein 6.9 g/dL (6.3-8.2)
[2023-06-10 13:38] LABS: Add Manual Diff / Slide Review NO; Basophils Absolute Auto 0 /uL (0-100); Basophils Percent Auto 0.7 % (0-2); Eosinophils Absolute Auto 200 /uL (0-450); Eosinophils Percent Auto 5.5 % (2-4); Hematocrit 37.1 % (36-46); Hemoglobin 12.6 g/dL (12.0-16.0); Lymphocytes Absolute Auto 1600 /uL (1100-4500); Lymphocytes Percent Auto 36.8 % (25-40); Mean Corpuscular Hemoglobin 32.8 PG (26-34); Mean Corpuscular Volume 96.2 fL (80-100); Monocytes Absolute Auto 400 /uL (0-900); Monocytes Percent Auto 9.9 % (3-14); Neutrophils Absolute Auto 2100 /uL (1500-7000); Neutrophils Percent Auto 47.1 % (50-75); Platelet Count 220 X10^3/uL (150-400); Red Blood Cell Count 3.85 X10^6/uL (4.0-5.2); Red Cell Distribution Width 13.9 % (11.6-14.8); White Blood Cell Count 4.4 X10^3/uL (4.5-11.0)
[2023-06-10 14:17] LABS: Thyroid Stimulating Hormone 1.61 uIU/mL (0.47-4.68)
[2023-06-10 14:23] LABS: Vitamin B12 380 pg/mL (239-931)
[2023-06-10 16:53] LABS: Appearance Urine UA CLEAR; Bilirubin Urine UA NEGATIVE (NEGATIVE); Color Urine UA YELLOW; Glucose Urine UA NEGATIVE (Negative); Ketones Urine UA NEGATIVE (NEGATIVE); Leukocyte Esterase Urine UA 1+ (NEGATIVE); Nitrite Urine UA NEGATIVE (Negative); Occult Blood Urine UA TRACE-INTACT (Negative); Protein Urine UA NEGATIVE (Negative); Specific Gravity Urine UA 1.015 (1.000-1.035)
[2023-06-10 17:07] LABS: Bacteria Urine Few (2-10); Culture Indicated Urine Specimen Cultured; RBC Urine 1-5/HPF (0-5/HPF); Squamous Epithelial Cell Urine 10-30 /HPF (0-5/HPF); WBC Urine 5-10/HPF (0-5/HPF)
== END ==
PROVIDERS: Family Provider Nurse Practitioner; PCP Nurse Practitioner; Referring Provider Nurse Practitioner; Visit Provider Nurse Practitioner
DX: E03.9 Hypothyroidism, unspecified (principal); R61 Generalized hyperhidrosis; R30.0 Dysuria
CPT/HCPCS: 36415; 80053; 81001; 82607; 84443; 85025; 87086

== ENCOUNTER → 2023-07-08 12:17 | Outpatient (CLI) | payer OTHER, SELFPAY ==
[2023-07-08 14:39] LABS: Add Manual Diff / Slide Review NO; Basophils Absolute Auto 0 /uL (0-100); Eosinophils Absolute Auto 300 /uL (0-450); Hematocrit 37.4 % (36-46); Hemoglobin 12.6 g/dL (12.0-16.0); Lymphocytes Absolute Auto 1700 /uL (1100-4500); Lymphocytes Percent Auto 42.5 % (25-40); Mean Corpuscular HGB Conc 33.8 % (30-36); Mean Corpuscular Hemoglobin 32.9 PG (26-34); Mean Corpuscular Volume 97.4 fL (80-100); Monocytes Absolute Auto 300 /uL (0-900); Monocytes Percent Auto 7.8 % (3-14); Neutrophils Absolute Auto 1600 /uL (1500-7000); Neutrophils Percent Auto 41.7 % (50-75); Platelet Count 233 X10^3/uL (150-400); Red Blood Cell Count 3.83 X10^6/uL (4.0-5.2); White Blood Cell Count 3.9 X10^3/uL (4.5-11.0)
[2023-07-08 14:57] LABS: Alanine Aminotransferase 13 IU/L (<35); Albumin 3.9 g/dL (3.5-5.0); Albumin Globulin Ratio 1.4 (1.0-2.8); Alkaline Phosphatase 78 U/L (38-126); Aspartate Aminotransferase 28 IU/L (14-36); Bilirubin Total 0.4 mg/dL (0.2-1.3); Blood Urea Nitrogen 13 mg/dL (7-17); Calcium 8.7 mg/dL (8.4-10.2); Carbon Dioxide 27 mmol/L (22-32); Chloride 102 mmol/L (98-107); Estimated Glomerular Filt Rate > 60 mL/min (>60); Globulin 2.7 g/dL (1.7-4.1); Glucose 100 mg/dL (80-110); HEMOLYSIS < 15 (0-50); Potassium 4.5 mmol/L (3.4-5.1); Sodium 138 mmol/L (137-145); Total Protein 6.6 g/dL (6.3-8.2)
== END ==
PROVIDERS: Family Provider Nurse Practitioner; PCP Nurse Practitioner; Referring Provider Internal Medicine Rheumatology; Visit Provider Internal Medicine Rheumatology
DX: M05.79 Rheumatoid arthritis with rheumatoid factor of multiple sites without organ or systems involvement (principal); M35.01 Sjogren syndrome with keratoconjunctivitis; Z79.899 Other long term (current) drug therapy
CPT/HCPCS: 36415; 80053; 85025

== ENCOUNTER → 2023-10-23 12:49 | Outpatient (CLI) | payer MEDICARE, SELFPAY ==
[2023-10-23 15:21] LABS: Add Manual Diff / Slide Review NO; Basophils Absolute Auto 0 /uL (0-100); Basophils Percent Auto 0.9 % (0-2); Eosinophils Absolute Auto 400 /uL (0-450); Eosinophils Percent Auto 9.6 % (2-4); Hemoglobin 12.7 g/dL (12.0-16.0); Lymphocytes Absolute Auto 1800 /uL (1100-4500); Lymphocytes Percent Auto 46.2 % (25-40); Mean Corpuscular HGB Conc 33.4 % (30-36); Mean Corpuscular Volume 98.7 fL (80-100); Monocytes Absolute Auto 400 /uL (0-900); Monocytes Percent Auto 9.1 % (3-14); Neutrophils Absolute Auto 1400 /uL (1500-7000); Neutrophils Percent Auto 34.2 % (50-75); Platelet Count 256 X10^3/uL (150-400); Red Blood Cell Count 3.86 X10^6/uL (4.0-5.2); Red Cell Distribution Width 13.9 % (11.6-14.8)
[2023-10-23 15:43] LABS: Alanine Aminotransferase 14 IU/L (<35); Albumin 3.9 g/dL (3.5-5.0); Albumin Globulin Ratio 1.3 (1.0-2.8); Alkaline Phosphatase 76 U/L (38-126); Aspartate Aminotransferase 28 IU/L (14-36); BUN Creatinine Ratio 13.2 (6-22); Bilirubin Total 0.4 mg/dL (0.2-1.3); Blood Urea Nitrogen 9 mg/dL (7-17); Carbon Dioxide 27 mmol/L (22-32); Chloride 103 mmol/L (98-107); Estimated Glomerular Filt Rate > 60 mL/min (>60); Globulin 2.9 g/dL (1.7-4.1); Glucose 98 mg/dL (80-110); HEMOLYSIS < 15 (0-50); Potassium 4.4 mmol/L (3.4-5.1); Sodium 138 mmol/L (137-145); Total Protein 6.8 g/dL (6.3-8.2)
== END ==
PROVIDERS: Family Provider Nurse Practitioner; PCP Nurse Practitioner; Referring Provider Internal Medicine Rheumatology; Visit Provider Internal Medicine Rheumatology
DX: M05.79 Rheumatoid arthritis with rheumatoid factor of multiple sites without organ or systems involvement (principal); M35.01 Sjogren syndrome with keratoconjunctivitis; Z79.899 Other long term (current) drug therapy
CPT/HCPCS: 36415; 80053; 85025

== ENCOUNTER → 2024-01-29 10:10 | Outpatient (CLI) | payer MEDICARE, SELFPAY ==
[2024-01-29 11:33] LABS: Add Manual Diff / Slide Review NO; Basophils Absolute Auto 0 /uL (0-100); Basophils Percent Auto 0.7 % (0-2); Eosinophils Absolute Auto 200 /uL (0-450); Eosinophils Percent Auto 4.9 % (2-4); Hematocrit 38.6 % (36-46); Lymphocytes Absolute Auto 1500 /uL (1100-4500); Lymphocytes Percent Auto 36.3 % (25-40); Mean Corpuscular HGB Conc 33.7 % (30-36); Mean Corpuscular Hemoglobin 33.5 PG (26-34); Mean Corpuscular Volume 99.5 fL (80-100); Monocytes Absolute Auto 300 /uL (0-900); Monocytes Percent Auto 7.3 % (3-14); Neutrophils Absolute Auto 2100 /uL (1500-7000); Neutrophils Percent Auto 50.8 % (50-75); Platelet Count 256 X10^3/uL (150-400); Red Blood Cell Count 3.88 X10^6/uL (4.0-5.2); Red Cell Distribution Width 13.5 % (11.6-14.8); White Blood Cell Count 4.1 X10^3/uL (4.5-11.0)
[2024-01-29 12:03] LABS: BUN Creatinine Ratio 14.5 (6-22); Blood Urea Nitrogen 10 mg/dL (7-17); Carbon Dioxide 25 mmol/L (22-32); Chloride 108 mmol/L (98-107); HEMOLYSIS < 15 (0-50); Potassium 4.3 mmol/L (3.4-5.1); Sodium 140 mmol/L (137-145)
[2024-01-29 12:04] LABS: Alanine Aminotransferase 12 IU/L (<35); Albumin Globulin Ratio 1.5 (1.0-2.8); Alkaline Phosphatase 78 U/L (38-126); Aspartate Aminotransferase 26 IU/L (14-36); Bilirubin Total 0.5 mg/dL (0.2-1.3); Calcium 9.1 mg/dL (8.4-10.2); Estimated Glomerular Filt Rate > 60 mL/min (>60); Globulin 2.7 g/dL (1.7-4.1); Glucose 100 mg/dL (80-110); Total Protein 6.7 g/dL (6.3-8.2)
== END ==
LOC: LAB 10:12
PROVIDERS: Family Provider Nurse Practitioner; PCP Nurse Practitioner; Referring Provider Internal Medicine Rheumatology; Visit Provider Internal Medicine Rheumatology
DX: M05.79 Rheumatoid arthritis with rheumatoid factor of multiple sites without organ or systems involvement (principal); Z79.899 Other long term (current) drug therapy; M35.01 Sjogren syndrome with keratoconjunctivitis
CPT/HCPCS: 36415; 80053; 85025

== ENCOUNTER → 2024-04-19 14:07 | Outpatient (CLI) | payer MEDICARE, SELFPAY ==
[2024-04-19 15:26] LABS: Add Manual Diff / Slide Review NO; Basophils Absolute Auto 0 /uL (0-100); Basophils Percent Auto 0.8 % (0-2); Eosinophils Absolute Auto 200 /uL (0-450); Eosinophils Percent Auto 4.3 % (2-4); Hematocrit 38.6 % (36-46); Lymphocytes Absolute Auto 1600 /uL (1100-4500); Lymphocytes Percent Auto 31.8 % (25-40); Mean Corpuscular HGB Conc 33.6 % (30-36); Mean Corpuscular Hemoglobin 33.1 PG (26-34); Mean Corpuscular Volume 98.6 fL (80-100); Monocytes Absolute Auto 200 /uL (0-900); Monocytes Percent Auto 4.8 % (3-14); Neutrophils Absolute Auto 3000 /uL (1500-7000); Neutrophils Percent Auto 58.3 % (50-75); Platelet Count 280 X10^3/uL (150-400); Red Blood Cell Count 3.92 X10^6/uL (4.0-5.2); Red Cell Distribution Width 14.1 % (11.6-14.8); White Blood Cell Count 5.2 X10^3/uL (4.5-11.0)
[2024-04-19 15:54] LABS: Alanine Aminotransferase 18 IU/L (<35); Albumin 4.1 g/dL (3.5-5.0); Albumin Globulin Ratio 1.5 (1.0-2.8); Alkaline Phosphatase 77 U/L (38-126); Aspartate Aminotransferase 42 IU/L (14-36); Bilirubin Total 0.6 mg/dL (0.2-1.3); Blood Urea Nitrogen 17 mg/dL (7-17); Calcium 9.2 mg/dL (8.4-10.2); Carbon Dioxide 29 mmol/L (22-32); Chloride 105 mmol/L (98-107); Estimated Glomerular Filt Rate > 60 mL/min (>60); Globulin 2.7 g/dL (1.7-4.1); Glucose 118 mg/dL (80-110); HEMOLYSIS < 15 (0-50); Potassium 3.9 mmol/L (3.4-5.1); Sodium 139 mmol/L (137-145); Total Protein 6.8 g/dL (6.3-8.2)
== END ==
PROVIDERS: Family Provider Nurse Practitioner; PCP Nurse Practitioner; Referring Provider Internal Medicine Rheumatology; Visit Provider Internal Medicine Rheumatology
DX: M05.79 Rheumatoid arthritis with rheumatoid factor of multiple sites without organ or systems involvement (principal); Z79.899 Other long term (current) drug therapy; M35.01 Sjogren syndrome with keratoconjunctivitis
CPT/HCPCS: 36415; 80053; 85025